=== PATIENT | female | born 1960 | race Caucasian/White ===

== ENCOUNTER 2017-11-14 14:51 | Inpatient (IN) | payer OTHER ==
--- NOTE | 2017-11-14 15:19 | PDOC ---
Rapid Medical Evaluation Time Seen by Provider: 11/14/17 15:15 Medical Evaluation: 11/14/17 15:15 I have performed a brief in-person evaluation of this patient. The patient presents with a chief complaint of: entire left leg swelling and calf swelling X 3 days, no recent travel or trauma. sent from Urgent Care Pertinent physical exam findings:++ swelling noted in L thigh and lower leg, 2x the size the right, + calf tenderness, + papule rash noted +2+ non pitting edema , disal pulse present, + tachycardia--denies CP/palpitation I have ordered the following: labs and duplex sono, ekg The patient will proceed to the ED for further evaluation. 11/14/17 15:20 Discharge Disposition - Diagnosis Swelling of calf - Referrals - Patient Instructions - Post Discharge Activity
[2017-11-14] MEDS ORDERED: SODIUM CHLORIDE 500 ML IV STA ×2 (17:15→17:49)
--- NOTE | 2017-11-14 17:24 | PDOC ---
History of Present Illness - General Chief Complaint: Pain Stated Complaint: SENT BY PCP:R/O DVT Time Seen by Provider: 11/14/17 15:15 History Source: Patient - History of Present Illness Occurred: reports: other Severity: Yes: severe Lower Extremity Pain Location: left: other (LLE) Past History - Past Medical History Allergies/Adverse Reactions: Allergies Allergy/AdvReac Type Severity Reaction Status Date / Time No Known Allergies Allergy Verified 11/14/17 15:16 COPD: No Other medical history: DENIES. - Suicide/Smoking/Psychosocial Hx Smoking History: Never smoked Review of Systems - Review of Systems Constitutional: No: Chills, Fever, Unexplained wgt Loss Respiratory: No: Shortness of Breath Cardiac (ROS): No: Chest Pain, Lightheadedness, Palpitations ABD/GI: Yes: Constipated, Nausea, Poor Appetite, Abdominal cramping. No: Blood Streaked Bowels, Diarrhea, Rectal Bleeding, Vomiting, Tarry Stools : No: Dysuria *Physical Exam - Vital Signs Last Vital Signs Temp Pulse Resp BP Pulse Ox 98.8 F 128 H 16 161/107 98 11/14/17 15:16 11/14/17 15:16 11/14/17 15:16 11/14/17 15:16 11/14/17 15:16 - Physical Exam General Appearance: Yes: Appropriately Dressed. No: Apparent Distress HEENT: positive: Normal Voice Neck: positive: Supple Respiratory/Chest: positive: Lungs Clear, Normal Breath Sounds. negative: Respiratory Distress Cardiovascular: positive: Tachycardia. negative: S1, S2 Gastrointestinal/Abdominal: positive: Soft Musculoskeletal: negative: CVA Tenderness Extremity: positive: Other (tight edema to LLE w/ multiple scattered erythematous papules of varying sizes throughout L leg, no sole involvement) Heart Score/ECG Review - ECG Intrepretation Comment:: 11/14/17 18:25 Sinus tach to 109, no acute ST-T wave changes, normal intervals and axis ED Treatment Course - LABORATORY CBC & Chemistry Diagram: 11/14/17 16:58 11/14/17 16:58 Medical Decision Making - Medical Decision Making 11/14/17 17:19 57-year-old female, denies any significant past medical history, post menopausal , here with left leg pain and swelling. Patient reports that she was in her usual state of health up until several weeks ago when she initially developed constipation. States she usually goes 3-4 times a week, but found herself going less frequently with no obvious inciting factor. Has been using over-the- counter meds with some improvement but states continues to have intermittent constipation. Does have some vague lower abdominal cramping and reports anorexia and nausea, no vomiting, f/c. Denies BRBPR, melena or recent unexplained weight loss. No colonoscopy in the past. Several days ago noticed pruritic rash to left lower extremity and since then has had diffuse swelling of her L foot extending into L thigh/groin. Denies any chest pain, shortness of breath or palpitations and no obvious risk factors for DVT/PE. Seen in urgent care today and told to come to ER. See exam R/o DVT vs lymphedema 2/2 ? malignancy (given new onset abd pain/constipation/ anorexia/nausea) Tachy to 128 at triage but denies cp/sob/palpitations w/ minimal ttp to lower abd and tight edema of LLE diffusely -ekg -cxr -LLE US, ?CTA -CT a/p -labs -admission anticipated 11/14/17 18:25 11/14/17 18:57 EKG w/ sinus tach to 109. Cr of 6.2 w/ K of 5.7. Will give kayexalate and calcium glu. CT with po contrast pending. Pt signed out to RUTH Guerrero at this time *DC/Admit/Observation/Transfer Diagnosis at time of Disposition: Swelling of calf - Referrals - Patient Instructions - Post Discharge Activity
[2017-11-14] MEDS ORDERED: ONDANSETRON 4 MG TABLET PO ONE (17:32)
[2017-11-14] MEDS ORDERED: ONDANSETRON 4 MG/2 ML VIAL ONE (17:38)
[2017-11-14] MEDS ORDERED: ONDANSETRON 4 MG/2 ML VIAL IVPUSH ONE (17:41)
[2017-11-14 17:47] LABS: HEMATOCRIT 37.3 % (32.4-45.2); HEMOGLOBIN 12.5 GM/dL (10.7-15.3); MCH 28.9 pg (25.7-33.7); MCHC 33.4 g/dl (32.0-36.0); MEAN CELL VOLUME 86.3 fl (80-96); MEAN PLT VOLUME 7.9 fl (7.5-11.1); PLATELET COUNT 386 K/MM3 (134-434); RBC 4.32 M/mm3 (3.60-5.2); RDW 12.7 % (11.6-15.6); WHITE BLOOD COUNT 10.2 K/mm3 (4.0-10.0)
[2017-11-14 17:56] LABS: INR 1.19 (0.82-1.09); PROTHROMBIN TIME (PATIENT) 13.5 SEC (9.7-13.0)
[2017-11-14 18:41] LABS: ALBUMIN 3.8 g/dl (3.4-5.0); ALK PHOS 196 U/L (45-117); ANION GAP 16 (8-16); BILIRUBIN,TOTAL 0.3 mg/dL (0.2-1.0); BLOOD UREA NITROGEN 81 mg/dL (7-18); CALCIUM 9.8 mg/dL (8.5-10.1); CHLORIDE 101 mmol/L (98-107); CO2 19 mmol/L (21-32); CREATININE 6.2 mg/dL (0.55-1.02); GLUCOSE,RANDOM 269 mg/dL (74-106); POTASSIUM 5.6 mmol/L (3.5-5.1); SGOT/AST 12 U/L (15-37); SGPT/ALT 19 U/L (12-78); SODIUM 136 mmol/L (136-145); TOT PROT 8.7 g/dl (6.4-8.2)
[2017-11-14] MEDS ORDERED: SODIUM POLYSTYRENE SULFONATE 15 GM/60 ML BOTTLE PO ONE (18:58)
[2017-11-14] MEDS ORDERED: CALCIUM GLUCONATE 10% - 1,000 MG/10 ML VIAL IVPUSH ONE (18:58)
--- NOTE | 2017-11-14 19:08 | PDOC ---
*Physical Exam - Vital Signs Last Vital Signs Temp Pulse Resp BP Pulse Ox 98.8 F 128 H 16 161/107 98 11/14/17 15:16 11/14/17 15:16 11/14/17 15:16 11/14/17 15:16 11/14/17 15:16 - Physical Exam Extremity: positive: Swelling (left lower swelling), Erythema (left medial thigh ) ED Treatment Course - LABORATORY CBC & Chemistry Diagram: 11/14/17 16:58 11/14/17 16:58 - ADDITIONAL ORDERS Additional order review: Laboratory Results 11/14/17 11/14/17 11/14/17 16:58 16:58 16:58 PT with INR 13.50 H INR 1.19 H Sodium 136 Potassium 5.6 H Chloride 101 Carbon Dioxide 19 L Anion Gap 16 BUN 81 H Creatinine 6.2 H Creat Clearance w eGFR 7.01 Random Glucose 269 H Calcium 9.8 Total Bilirubin 0.3 AST 12 L ALT 19 Alkaline Phosphatase 196 H B-Natriuretic Peptide 786.38 H Total Protein 8.7 H Albumin 3.8 11/14/17 16:58 RBC 4.32 MCV 86.3 MCHC 33.4 RDW 12.7 MPV 7.9 - Medications Given in the ED: ED Medications Discontinued Medications Generic Name Dose Route Start Last Admin Trade Name Freq PRN Reason Stop Dose Admin Sodium Chloride 500 mls @ 500 mls/hr 11/14/17 17:15 11/14/17 17:41 Normal Saline - IV 11/14/17 18:14 500 mls/hr ASDIR STA Administration Sodium Chloride 500 mls @ 500 mls/hr 11/14/17 17:49 11/14/17 17:58 Normal Saline - IV 11/14/17 18:48 500 mls/hr ASDIR STA Administration Ondansetron HCl 4 mg 11/14/17 17:32 11/14/17 18:02 Zofran - PO 11/14/17 17:33 Not Given ONCE ONE Ondansetron HCl 4 mg 11/14/17 17:41 11/14/17 17:58 Zofran Injection IVPUSH 11/14/17 17:42 4 mg ONCE ONE Administration Progress Note - Progress Note Progress Note: Received signout from MEETA Villela. Patient presents from urgent care with left lower extremity erythema and swelling. This concern was for DVT. EKG reveals a sinus tachycardia with rate of 109. Normal intervals present T waves are not peaked. Laboratory testing is remarkable for potassium of 5.6, BUN 8-81, creatinine 6.2. Patient is presently ultrasound. I'll evaluate patient once she has returned from ultrasound and will be admitted with renal consult. Medical Decision Making - Medical Decision Making 11/14/17 20:01 A/P: 57-year-old woman without significant past medical history with new onset left lower extremity rash and swelling Labs notable for renal failure with elevated K- 5.6. Renal paged for consult. Duplex Doppler as read by Dr. Flores: There is diffuse swelling of the left leg which somewhat limits the exam on a technical basis. A left common femoral vein as well as the upper and middle thirds of the femoral vein appear patent. The distal third of the femoral vein cannot be adequately compressed on this exam to the leg swelling as well as body habitus. Posterior tibial veins appear patent. There is no obvious popliteal cyst. Nonspecific enlarged left inguinal lymph node is seen with a 1.7 cm short axis diameter. 11/14/17 20:30 CT as read by Dr. Flores: Urinary retention is noted with a current bladder volume of approximately 1400 mL. There is resultant moderate bilateral hydronephrosis. No CT evidence of urolithiasis. Nonspecific mildly prominent left inguinal lymph node is seen. Subcutaneous edema is visualized on the partially imaged upper left thigh. Diffuse hepatic steatosis 11/14/17 21:[address] Levine who accepts patient for admission. Dr. Crowley of nephrology is aware and requests Hyatt placement. Attempts to insert Hyatt catheter 2 have been unsuccessful. Unable to pass Hyatt catheter be on the first 4 mL of urethra. I sent a page to Dr. Santo of urology for urgent consult and bladder decompression. 11/14/17 22:27 Page #3 for - [facility]. 11/14/17 22:33 Spoke with [facility] service who states Dr. Garcia is covering tonight. Message left 11/14/17 22:[address] Garcia who is aware of need for bladder catheterization. Dr. Garcia is aware of urgent need and will place Hyatt catheter. *DC/Admit/Observation/Transfer Diagnosis at time of Disposition: Acute renal failure (ARF), Acute urinary retention, Hyperkalemia - Discharge Dispostion Condition at time of disposition: Fair Decision to Admit order: Yes - Referrals - Patient Instructions - Post Discharge Activity
[2017-11-14] MEDS ORDERED: CALCIUM GLUCONATE 10% - 1,000 MG/10 ML VIAL ONE (20:50)
[2017-11-14] MEDS ORDERED: SODIUM POLYSTYRENE SULFONATE 15 GM/60 ML BOTTLE ONE (20:50)
--- NOTE | 2017-11-14 22:54 | HP ---
Admitting History and Physical - Primary Care Physician PCP: Jacinto Levine - Admission History of Present Illness: 57-year-old female, denies any significant past medical history, post menopausal , here with left leg pain and swelling. Patient reports that she was in her usual state of health up until several weeks ago when she initially developed constipation. States she usually goes 3-4 times a week, but found herself going less frequently with no obvious inciting factor. Has been using over-the- counter meds with some improvement but states continues to have intermittent constipation. Does have some vague lower abdominal cramping and reports anorexia and nausea, no vomiting, f/c. Denies BRBPR, melena or recent unexplained weight loss. No colonoscopy in the past. Several days ago noticed pruritic rash to left lower extremity and since then has had diffuse swelling of her L foot extending into L thigh/groin. Denies any chest pain, shortness of breath or palpitations and no obvious risk factors for DVT/PE. Seen in urgent care today and told to come to ER. - Smoking History Smoking history: Never smoked Home Medications - Allergies Allergies/Adverse Reactions: Allergies Allergy/AdvReac Type Severity Reaction Status Date / Time No Known Allergies Allergy Verified 11/14/17 15:16 - Home Medications Home Medications: Ambulatory Orders NK [No Known Home Medication] 11/14/17 Physical Examination Vital Signs: Vital Signs Temperature 98 F 11/14/17 21:14 Pulse Rate 125 H 11/14/17 21:14 Respiratory Rate 17 11/14/17 21:14 Blood Pressure 210/127 11/14/17 21:14 O2 Sat by Pulse Oximetry (%) 98 11/14/17 21:14 Constitutional: Yes: No Distress HENT: Yes: Atraumatic Neck: Yes: Supple Cardiovascular: Yes: Regular Rate and Rhythm Respiratory: Yes: CTA Bilaterally Gastrointestinal: Yes: Normal Bowel Sounds Extremities: Yes: WNL Edema: LLE: 2+ Peripheral Pulses WNL: Yes Neurological: Yes: Alert, Oriented Labs: CBC, BMP 11/14/17 16:58 11/14/17 16:58 Imaging - Results Ultrasound: Report Reviewed Problem List - Problems (1) Acute renal failure (ARF) Assessment/Plan: urine out put not good cant put folry in ..awaiting urology monitor I/O renal consult Code(s): N17.9 - ACUTE KIDNEY FAILURE, UNSPECIFIED (2) Acute urinary retention Assessment/Plan: need jackson in place Code(s): R33.8 - OTHER RETENTION OF URINE (3) HTN (hypertension) Assessment/Plan: on meds monitor Code(s): I10 - ESSENTIAL (PRIMARY) HYPERTENSION Qualifiers: Hypertension type: unspecified Qualified Code(s): I10 - Essential (primary ) hypertension (4) Hyperkalemia Assessment/Plan: will give kayexalate monitor levels Code(s): E87.5 - HYPERKALEMIA (5) Pedal edema Code(s): R60.0 - LOCALIZED EDEMA Assessment/Plan Laboratory Tests 11/14/17 11/14/17 11/14/17 16:58 16:58 16:58 WBC 10.2 H RBC 4.32 Hgb 12.5 Hct 37.3 MCV 86.3 MCH 28.9 MCHC 33.4 RDW 12.7 Plt Count 386 MPV 7.9 PT with INR 13.50 H INR 1.19 H Sodium 136 Potassium 5.6 H Chloride 101 Carbon Dioxide 19 L Anion Gap 16 BUN 81 H Creatinine 6.2 H Creat Clearance w eGFR 7.01 Random Glucose 269 H Calcium 9.8 Total Bilirubin 0.3 AST 12 L ALT 19 Alkaline Phosphatase 196 H B-Natriuretic Peptide Total Protein 8.7 H Albumin 3.8 11/14/17 16:58 WBC RBC Hgb Hct MCV MCH MCHC RDW Plt Count MPV PT with INR INR Sodium Potassium Chloride Carbon Dioxide Anion Gap BUN Creatinine Creat Clearance w eGFR Random Glucose Calcium Total Bilirubin AST ALT Alkaline Phosphatase B-Natriuretic Peptide 786.38 H Total Protein Albumin Active Medications Generic Name Dose Route Start Last Admin Trade Name Freq PRN Reason Stop Dose Admin Albuterol Sulfate 1 amp 11/15/17 11:55 11/15/17 13:50 Ventolin 0.083% Nebulizer Soln - NEB 1 amp Q1H PRN Administration SHORT OF BREATH/WHEEZING Heparin Sodium (Porcine) 5,000 unit 11/15/17 10:00 11/15/17 09:47 Heparin - SQ 5,000 unit BID EZIO Administration Sodium Chloride 1,000 mls @ 75 mls/hr 11/15/17 15:15 Normal Saline - IV ASDIR EZIO Metoprolol Tartrate 25 mg 11/15/17 10:30 Lopressor - PO BID EZIO
[2017-11-14] MEDS ORDERED: ACETAMINOPHEN 500 MG TABLET (FP) PO ONE (23:08)
[2017-11-15] MEDS ORDERED: ACETAMINOPHEN 325 MG TABLET (FP) ONE ×2 (00:45→16:58)
[2017-11-15 07:56] LABS: BASO % 0.8 % (0-2.0); EOS % 1.8 % (0-4.5); HEMOGLOBIN 11.6 GM/dL (10.7-15.3); LYMPH % 17.8 % (8-40); MCH 29.4 pg (25.7-33.7); MCHC 34.2 g/dl (32.0-36.0); MEAN CELL VOLUME 86.1 fl (80-96); MEAN PLT VOLUME 7.8 fl (7.5-11.1); MONO % 9.5 % (3.8-10.2); NEUT % 70.1 % (42.8-82.8); PLATELET COUNT 322 K/MM3 (134-434); RBC 3.95 M/mm3 (3.60-5.2); RDW 12.4 % (11.6-15.6); WHITE BLOOD COUNT 9.4 K/mm3 (4.0-10.0)
[2017-11-15 08:37] LABS: ALBUMIN 3.4 g/dl (3.4-5.0); ALK PHOS 181 U/L (45-117); BILIRUBIN,TOTAL 0.3 mg/dL (0.2-1.0); BLOOD UREA NITROGEN 81 mg/dL (7-18); CALCIUM 9.3 mg/dL (8.5-10.1); CO2 19 mmol/L (21-32); CREATININE 6.5 mg/dL (0.55-1.02); GLUCOSE,RANDOM 258 mg/dL (74-106); SGOT/AST 10 U/L (15-37); SGPT/ALT 17 U/L (12-78); TOT PROT 7.7 g/dl (6.4-8.2)
[2017-11-15 08:41] LABS: ANION GAP 12 (8-16); CHLORIDE 106 mmol/L (98-107); SODIUM 137 mmol/L (136-145)
[2017-11-15 09:14] LABS: POTASSIUM 6.2 mmol/L (3.5-5.1)
[2017-11-15] MEDS: HEPARIN NA (PORCINE) 5,000 UNITS/ML 1ML VIAL SQ SCH ×2 (09:47→23:08)
--- NOTE | 2017-11-15 10:08 | CON.CARD ---
Consult Consult Specialty:: Cardiology Referred by:: Dr. Levine Reason for Consultation:: Cardiac evaluation - History of Present Illness Chief Complaint: Difficulty with urination and abdominal fulness, left pedal edema History of Present Illness: Patient is a 57 year old female with no significant PMH who presents with left leg swelling for about 4-5 days and feeling ill with abdominal fullness and constipation. She found herself going less to the bathroom and had some lower abdominal cramping. She denies fever but complained of chills. Denies chest pain , shortness of breath or palpitations. She denies paroxysmal nocturnal dyspnea or orthopnea. She denies vomiting or diarrhea. She denies headache or lightheadedness. She has edema extending up to her left thigh. She also has BETH with elevation of creatinine and hyperkalemia. Cardiology consultation was called due to management of hypertension. She has not had history of hypertension. - History Source History Provided By: Patient, Medical Record Limitations to Obtaining History: No Limitations - Alcohol/Substance Use Hx Alcohol Use: No History of Substance Use: reports: None - Smoking History Smoking history: Never smoked Home Medications - Allergies Allergies/Adverse Reactions: Allergies Allergy/AdvReac Type Severity Reaction Status Date / Time No Known Allergies Allergy Verified 11/14/17 15:16 - Home Medications Home Medications: Ambulatory Orders NK [No Known Home Medication] 11/14/17 Family Disease History - Family Disease History Family Disease History: CA: Mother (breast CA) Review of Systems - Review of Systems Constitutional: reports: Chills. denies: Fever Cardiovascular: denies: Chest Pain, Palpitations, Shortness of Breath Respiratory: denies: Cough, Hemoptysis, Orthopnea, PND, SOB, SOB on Exertion Gastrointestinal: reports: Bloating, Constipation. denies: Abdominal Pain, Diarrhea, Melena, Nausea, Rectal Bleeding, Vomiting Genitourinary: denies: Hematuria Musculoskeletal: denies: Joint Pain Neurological: denies: Dizziness, Headache, Seizure, Syncope, Weakness Vital Signs: Vital Signs Temperature 99.4 F 11/15/17 06:22 Pulse Rate 106 H 11/15/17 06:22 Respiratory Rate 18 11/15/17 06:22 Blood Pressure 166/87 11/15/17 06:22 O2 Sat by Pulse Oximetry (%) 98 11/15/17 06:22 Eyes: Yes: PERRL HENT: Yes: Atraumatic Neck: Yes: Supple Respiratory: Yes: CTA Bilaterally Gastrointestinal: Yes: Normal Bowel Sounds, Soft. No: Tenderness Cardiovascular: Yes: Regular Rate and Rhythm JVD: No Carotid Bruit: No PMI: Non-Displaced Heart Sounds: Yes: S1, S2. No: Gallop Murmur: No: Systolic Murmur, Diastolic Murmur Edema: Yes Edema: LLE: 2+ - Other Data Labs, Other Data: CBC, BMP 11/15/17 07:15 11/15/17 07:15 INR, PTT INR 1.19 (0.82-1.09) H 11/14/17 16:58 Troponin, BNP 11/14/17 16:58 B-Natriuretic Peptide 786.38 H Sinus tachycardia, no ST-T abnormality Problem List - Problems (1) Pedal edema Code(s): R60.0 - LOCALIZED EDEMA (2) Acute renal failure (ARF) Code(s): N17.9 - ACUTE KIDNEY FAILURE, UNSPECIFIED (3) Acute urinary retention Code(s): R33.8 - OTHER RETENTION OF URINE (4) Hyperkalemia Code(s): E87.5 - HYPERKALEMIA (5) HTN (hypertension) Code(s): I10 - ESSENTIAL (PRIMARY) HYPERTENSION Qualifiers: Hypertension type: unspecified Qualified Code(s): I10 - Essential (primary ) hypertension Assessment/Plan 1. Sinus tachycardia and hypertension 2. BETH possible obstructive with urinary retention and hydronephrosis 3. Hyperkalemia 4. Left pedal edema, etiology unclear as ultrasound was inconclusive for ruling out DVT. ?lymphedema PLAN: 1. input needed and for jackson catheter insertion and further evaluation to follow regarding this urinary retention and hydronephrosis 2. BP needs to be followed. May consider beta alberto therapy for now. 3. Monitor electrolytes including K level and renal function 4. Consider further evaluation for pedal edema. Consider venogram. 5. Renal input to follow 6. Transthoracic echocardiography to assess LV/RV and valvular function Further plans are to follow Anuj Moreno MD
[2017-11-15] MEDS ORDERED: CALCIUM GLUCONATE 10% - 1,000 MG/10 ML VIAL IVPUSH ONE ×2 (11:54→22:15)
[2017-11-15] MEDS ORDERED: LACTULOSE 20 GM/30 ML UDC (FOR ORAL USE ONLY) PO ONE (11:54)
[2017-11-15] MEDS ORDERED: DEXTROSE 50%-WATER - 25 GM/50 ML VIAL IVPUSH ONE (11:55)
[2017-11-15] MEDS ORDERED: INSULIN REGULAR HUMAN 100 UNITS/ML *VIAL IVPUSH ONE (11:55)
--- NOTE | 2017-11-15 11:56 | CONSULT ---
Consult Consult Specialty:: Nephrology Reason for Consultation:: BETH and hyperkalemia - History of Present Illness Chief Complaint: left leg edema History of Present Illness: Pt is a 57 year old female who presents to the ER with left leg edema. She denies any medical history and does not have a pmd. She went to urgent care who sent her to the ER. She says that the edema began a few days ago. She complains of constipation that has been chronic. She was found to be in acute renal failure in the ER and I was called to evaluate her. She was also found to be in urinary retention. ER could not place jackson as there was resistance. I called urology again today and they came and placed a jackson. She denies shortness of breath. She is also developing a rash on her left leg. She denies tick bite. - History Source History Provided By: Patient, Medical Record - Alcohol/Substance Use Hx Alcohol Use: No History of Substance Use: reports: None - Smoking History Smoking history: Never smoked Home Medications - Allergies Allergies/Adverse Reactions: Allergies Allergy/AdvReac Type Severity Reaction Status Date / Time No Known Allergies Allergy Verified 11/14/17 15:16 - Home Medications Home Medications: Ambulatory Orders NK [No Known Home Medication] 11/14/17 Family Disease History - Family Disease History Family Disease History: CA: Mother (breast CA) Review of Systems - Review of Systems Constitutional: reports: No Symptoms Eyes: reports: No Symptoms HENT: reports: No Symptoms Neck: reports: No Symptoms Cardiovascular: reports: No Symptoms Respiratory: reports: No Symptoms Gastrointestinal: reports: Constipation Genitourinary: reports: Dysuria Integumentary: reports: Lesions, Rash Neurological: reports: No Symptoms Endocrine: reports: No Symptoms Hematology/Lymphatic: reports: No Symptoms Psychiatric: reports: No Symptoms Physical Exam Vital Signs: Vital Signs Temperature 99.4 F 11/15/17 06:22 Pulse Rate 106 H 11/15/17 06:22 Respiratory Rate 18 11/15/17 06:22 Blood Pressure 166/87 11/15/17 06:22 O2 Sat by Pulse Oximetry (%) 98 11/15/17 06:22 Constitutional: Yes: Calm Eyes: Yes: Conjunctiva Clear HENT: Yes: Atraumatic Neck: Yes: Supple Cardiovascular: Yes: S1, S2 Respiratory: Yes: CTA Bilaterally Gastrointestinal: Yes: Soft, Abdomen, Obese Breast(s): Yes: Other (distended bladder) Musculoskeletal: Yes: WNL Edema: Yes Edema: LLE: 1+ Neurological: Yes: Oriented Psychiatric: Yes: Oriented Labs: CBC, BMP 11/15/17 07:15 11/15/17 07:15 Laboratory Tests 11/14/17 11/14/17 11/14/17 16:58 16:58 16:58 WBC 10.2 H Hgb 12.5 PT with INR 13.50 H INR 1.19 H Sodium 136 Potassium 5.6 H Chloride Carbon Dioxide Anion Gap BUN 81 H Creatinine 6.2 H Random Glucose 269 H 11/15/17 11/15/17 07:15 07:15 WBC 9.4 Hgb 11.6 PT with INR INR Sodium 137 Potassium 6.2 H* Chloride 106 Carbon Dioxide 19 L Anion Gap 12 BUN 81 H Creatinine 6.5 H Random Glucose 258 H Imaging - Results Cat Scan: Report Reviewed Problem List - Problems (1) Acute renal failure (ARF) Code(s): N17.9 - ACUTE KIDNEY FAILURE, UNSPECIFIED (2) Acute urinary retention Code(s): R33.8 - OTHER RETENTION OF URINE (3) HTN (hypertension) Code(s): I10 - ESSENTIAL (PRIMARY) HYPERTENSION Qualifiers: Hypertension type: unspecified Qualified Code(s): I10 - Essential (primary ) hypertension (4) Hyperkalemia Code(s): E87.5 - HYPERKALEMIA Assessment/Plan Current Medications Generic Name Dose Route Start Last Admin Trade Name Freq PRN Reason Stop Dose Admin Albuterol Sulfate 1 amp 11/15/17 11:55 11/15/17 13:50 Ventolin 0.083% Nebulizer Soln - NEB 1 amp Q1H PRN Administration SHORT OF BREATH/WHEEZING Heparin Sodium (Porcine) 5,000 unit 11/15/17 10:00 11/15/17 09:47 Heparin - SQ 5,000 unit BID EZIO Administration Metoprolol Tartrate 25 mg 11/15/17 10:30 Lopressor - PO BID EZIO Impression 1. BETH 2. hyperkalemia 3. urinary retention 4. constipation 5. left leg edema 6. rash Plan - urology placing jackson now - monitor urine output - start fluids and monitor for post obstructive diuresis - potassium treated medically - pt should be on tele - repeat bmp - discussed with medical team - unclear why she has unilater edema - will need bowel regimen for constipation - age appropriate screening - will follow - will send renal workup including anca and olga - consider derm eval Dr Crowley
--- NOTE | 2017-11-15 12:03 | EKG ---
Test Reason : Blood Pressure : / mmHG Vent. Rate : 109 BPM Atrial Rate : 109 BPM P-R Int : 128 ms QRS Dur : 072 ms QT Int : 308 ms P-R-T Axes : 053 034 034 degrees QTc Int : 414 ms SINUS TACHYCARDIA CANNOT RULE OUT ANTERIOR INFARCT , AGE UNDETERMINED ABNORMAL ECG Confirmed by MD BOB, MARY ([id number]) on 11/15/2017 12:03:15 PM Referred By: Confirmed By:MARY ROJAS MD
[2017-11-15] MEDS ORDERED: DEXTROSE 50%-WATER 25 GM/50 ML DISP.SYRIN ONE (12:50)
[2017-11-15] MEDS: ALBUTEROL SO4 0.083% IH SOL 2.5 MG/3 ML VIAL.NEB. NEB PRN ×5 (13:33→23:18)
[2017-11-15] MEDS ORDERED: LIDOCAINE HCL 2% JELLY 10 ML CARTRIDGE ONE (13:54)
[2017-11-15] MEDS ORDERED: SODIUM CHLORIDE 1,000 ML IV SCH ×2 (15:15→22:15)
--- NOTE | 2017-11-15 15:17 | PN ---
Progress Note, Physician - Current Medication List Current Medications: Active Medications Albuterol Sulfate (Ventolin 0.083% Nebulizer Soln -) 1 amp NEB Q1H PRN PRN Reason: SHORT OF BREATH/WHEEZING Last Admin: 11/15/17 13:50 Dose: 1 amp Heparin Sodium (Porcine) (Heparin -) 5,000 unit SQ BID EZIO Last Admin: 11/15/17 09:47 Dose: 5,000 unit Sodium Chloride (Normal Saline -) 1,000 mls @ 75 mls/hr IV ASDIR EZIO Metoprolol Tartrate (Lopressor -) 25 mg PO BID EZIO - Objective Vital Signs: Vital Signs Temperature 99.4 F 11/15/17 06:22 Pulse Rate 106 H 11/15/17 06:22 Respiratory Rate 18 11/15/17 06:22 Blood Pressure 166/87 11/15/17 06:22 O2 Sat by Pulse Oximetry (%) 98 11/15/17 06:22 Constitutional: Yes: No Distress HENT: Yes: Atraumatic Neck: Yes: Supple Cardiovascular: Yes: Regular Rate and Rhythm Respiratory: Yes: CTA Bilaterally Gastrointestinal: Yes: Normal Bowel Sounds Extremities: Yes: Other (llex swollen, warm, some small red eruptions) Edema: Yes Edema: RLE: 2+ Neurological: Yes: Alert, Oriented Labs: CBC, BMP 11/15/17 07:15 11/15/17 07:15 INR, PTT INR 1.19 (0.82-1.09) H 11/14/17 16:58 Problem List - Problems (1) Acute renal failure (ARF) Assessment/Plan: urine out put not good cant put jackson in ..awaiting urology monitor I/O renal consult Code(s): N17.9 - ACUTE KIDNEY FAILURE, UNSPECIFIED Qualifiers: Acute renal failure type: unspecified Qualified Code(s): N17.9 - Acute kidney failure, unspecified (2) Acute urinary retention Assessment/Plan: need jackson in place Code(s): R33.8 - OTHER RETENTION OF URINE (3) HTN (hypertension) Assessment/Plan: on meds monitor Code(s): I10 - ESSENTIAL (PRIMARY) HYPERTENSION Qualifiers: Hypertension type: essential hypertension Qualified Code(s): I10 - Essential (primary) hypertension (4) Hyperkalemia Assessment/Plan: will give kayexalate monitor levels Code(s): E87.5 - HYPERKALEMIA (5) Pedal edema Code(s): R60.0 - LOCALIZED EDEMA (6) Rash and nonspecific skin eruption Assessment/Plan: derm consult Code(s): R21 - RASH AND OTHER NONSPECIFIC SKIN ERUPTION
--- NOTE | 2017-11-15 16:21 | ECHO ---
Name: CHAITANYA YOO Exam:Adult Echocardiogram Study Date: 11/15/2017 10:11 AM Reason For Study: CHF Height: 60 in Weight: 200 lb BSA: 1.9 m2 MMode/2D Measurements & Calculations IVSd: 0.77 cm Ao root diam: 2.7 cm EDV(Teich): 107.4 ml LVIDd: 4.8 cm LA dimension: 3.4 cm LVPWd: 0.87 cm ACS: 1.5 cm Ao root area: 5.7 cm2 Doppler Measurements & Calculations MV A max bhavana: 128.3 cm/sec Ao V2 max: 154.2 cm/sec MR max bhavana: 545.1 cm/sec Ao max P.5 mmHg MR max P.9 mmHg Ao V2 mean: 99.1 cm/sec Ao mean P.6 mmHg Ao V2 VTI: 23.3 cm TR max bhavana: 221.0 cm/sec PA V2 max: 156.1 cm/sec TR max P.5 mmHg PA max P.7 mmHg PA V2 mean: 94.2 cm/sec PA mean P.2 mmHg PA V2 VTI: 25.2 cm Procedure A complete two-dimensional transthoracic echocardiogram was performed (2D, M-mode, Doppler and color flow Doppler). Left Ventricle The left ventricular size, thickness and function are normal. Ejection Fraction = 65%. Right Ventricle The right ventricle is normal in size and function. Atria The left atrium is mildly dilated. Right atrial size is normal. Mitral Valve The mitral valve is grossly normal. There is trace mitral regurgitation. Tricuspid Valve The tricuspid valve is not well visualized, but is grossly normal. There is trace tricuspid regurgita tion. There was insufficient TR detected to calculate RV systolic pressure. Aortic Valve The aortic valve is trileaflet. There is mild aortic valve thickening. There is mild aortic sclerosis .;. No hemodynamically significant valvular aortic stenosis. Pulmonic Valve The pulmonic valve is not well visualized. Great Vessels The aortic root is normal size. Pericardium/Pleura There is no pericardial effusion. Interpretation Summary The left ventricular size, thickness and function are normal The left atrium is mildly dilated. There is trace mitral regurgitation. There is trace tricuspid regurgitation. There was insufficient TR detected to calculate RV systolic pressure. No hemodynamically significant valvular aortic stenosis. There is no pericardial effusion. MD Fransisco Orellana 11/15/2017 04:21 PM
[2017-11-15] MEDS ORDERED: amLODIPine BESYLATE 5 MG TABLET (FP) ONE (16:59)
[2017-11-15] MEDS ORDERED: ACETAMINOPHEN 325 MG TABLET (FP) PO ONE (17:00)
[2017-11-15] MEDS ORDERED: METOPROLOL TARTRATE 25 MG TABLET (FP) ONE (17:13)
[2017-11-15] MEDS: METOPROLOL TARTRATE 25 MG TABLET (FP) PO SCH ×2 (17:14→23:08)
[2017-11-15 21:25] LABS: ANION GAP 12 (8-16); BLOOD UREA NITROGEN 77 mg/dL (7-18); CALCIUM 8.7 mg/dL (8.5-10.1); CHLORIDE 106 mmol/L (98-107); CO2 19 mmol/L (21-32); CREATININE 5.8 mg/dL (0.55-1.02); SODIUM 137 mmol/L (136-145)
[2017-11-15 21:29] LABS: GLUCOSE,RANDOM 410 mg/dL (74-106)
[2017-11-15] MEDS ORDERED: INSULIN (NOVOLOG) ASPART 100 UNITS/ML 10ML VIAL SQ ONE (22:00)
[2017-11-15] MEDS ORDERED: INSULIN REGULAR HUMAN 100 UNITS/ML *VIAL ONE (22:07)
[2017-11-15] MEDS ORDERED: SODIUM POLYSTYRENE SULFONATE 15 GM/60 ML BOTTLE PO ONE (22:45)
[2017-11-15] MEDS: ACETAMINOPHEN 325 MG TABLET (FP) PO PRN (23:10)
[2017-11-16] MEDS: SODIUM CHLORIDE 0.45% 1,000 ML IV SCH (00:30)
[2017-11-16 01:05] VITALS: BMI 37.5
[2017-11-16] MEDS: ACETAMINOPHEN 325 MG TABLET (FP) PO PRN ×2 (04:49→10:52)
[2017-11-16 07:50] LABS: ALBUMIN 3.2 g/dl (3.4-5.0); ANION GAP 10 (8-16); BLOOD UREA NITROGEN 76 mg/dL (7-18); CALCIUM 9.2 mg/dL (8.5-10.1); CHLORIDE 106 mmol/L (98-107); CO2 20 mmol/L (21-32); GLUCOSE,RANDOM 169 mg/dL (74-106); POTASSIUM 5.9 mmol/L (3.5-5.1); SGOT/AST 12 U/L (15-37); SGPT/ALT 19 U/L (12-78); SODIUM 136 mmol/L (136-145)
[2017-11-16 07:52] LABS: ALK PHOS 202 U/L (45-117); BILIRUBIN,TOTAL 0.3 mg/dL (0.2-1.0); CREATININE 5.7 mg/dL (0.55-1.02); TOT PROT 7.4 g/dl (6.4-8.2)
[2017-11-16] MEDS: HEPARIN NA (PORCINE) 5,000 UNITS/ML 1ML VIAL SQ SCH ×2 (09:13→21:53)
[2017-11-16] MEDS: METOPROLOL TARTRATE 25 MG TABLET (FP) PO SCH ×2 (09:13→21:51)
--- NOTE | 2017-11-16 12:21 | PN ---
Progress Note, Physician History of Present Illness: Tolerating lunch, receiving IVF. - Current Medication List Current Medications: Active Medications Acetaminophen (Tylenol -) 650 mg PO Q6H PRN PRN Reason: FEVER Last Admin: 11/16/17 10:52 Dose: 650 mg Albuterol Sulfate (Ventolin 0.083% Nebulizer Soln -) 1 amp NEB Q1H PRN PRN Reason: SHORT OF BREATH/WHEEZING Last Admin: 11/15/17 13:50 Dose: 1 amp Heparin Sodium (Porcine) (Heparin -) 5,000 unit SQ BID [facility] Last Admin: 11/16/17 09:13 Dose: Not Given Sodium Chloride (1/2 Normal Saline) 1,000 mls @ 125 mls/hr IV ASDIR [facility] Last Admin: 11/16/17 00:30 Dose: 125 mls/hr Metoprolol Tartrate (Lopressor -) 25 mg PO BID [facility] Last Admin: 11/16/17 09:13 Dose: 25 mg - Objective Vital Signs: Vital Signs Temperature 98.2 F 11/16/17 06:00 Pulse Rate 98 H 11/16/17 06:00 Respiratory Rate 18 11/16/17 06:00 Blood Pressure 143/75 11/16/17 06:00 O2 Sat by Pulse Oximetry (%) 98 11/16/17 03:54 Constitutional: Yes: No Distress, Calm Neck: Yes: Supple Cardiovascular: Yes: Regular Rate and Rhythm Respiratory: Yes: Regular, CTA Bilaterally Gastrointestinal: Yes: Normal Bowel Sounds, Soft Edema: Yes Edema: LLE: 2+ Labs: CBC, BMP 11/15/17 07:15 11/16/17 06:15 INR, PTT INR 1.19 (0.82-1.09) H 11/14/17 16:58 - ....Imaging Ultrasound: Report Reviewed (Mod bilateral hydro and bladder distension improved ) Problem List - Problems (1) Acute urinary retention Code(s): R33.8 - OTHER RETENTION OF URINE (2) HTN (hypertension) Code(s): I10 - ESSENTIAL (PRIMARY) HYPERTENSION Qualifiers: Hypertension type: essential hypertension Qualified Code(s): I10 - Essential (primary) hypertension (3) Hyperkalemia Code(s): E87.5 - HYPERKALEMIA (4) Pedal edema Code(s): R60.0 - LOCALIZED EDEMA (5) Acute bilateral obstructive uropathy Code(s): N13.9 - OBSTRUCTIVE AND REFLUX UROPATHY, UNSPECIFIED Assessment/Plan Transthoracic echocardiography to assess LV/RV and valvular function 1. Sinus tachycardia and hypertension improved 2. BETH and hyperkalemia referable to obstructive uropathy with urinary retention and moderate bilateral hydronephrosis 3. Left pedal edema, etiology unclear as ultrasound was inconclusive for ruling out DVT. ?lymphedema PLAN: 1. Hyatt placed with traumatic hematuria, urology management of urinary retention and hydronephrosis 2. Continue Lopressor 25 bid 3. Monitor electrolytes during post-obstructive diuresis including K level and renal function with IVF 4. Left CT venogram once renal fxn recovers 5. Renal input appreciated 6. DVT prophylaxis
[2017-11-16 12:55] LABS: ANION GAP 12 (8-16); BLOOD UREA NITROGEN 76 mg/dL (7-18); CALCIUM 8.6 mg/dL (8.5-10.1); CHLORIDE 104 mmol/L (98-107); CO2 19 mmol/L (21-32); CREATININE 5.7 mg/dL (0.55-1.02); POTASSIUM 5.9 mmol/L (3.5-5.1); SODIUM 135 mmol/L (136-145)
[2017-11-16 13:09] LABS: GLUCOSE,RANDOM 319 mg/dL (74-106)
--- NOTE | 2017-11-16 13:30 | PN ---
Progress Note, Physician History of Present Illness: Pt seen and examined at bedside. She is awake and alert. She denies shortness of breath. - Current Medication List Current Medications: Active Medications Acetaminophen (Tylenol -) 650 mg PO Q6H PRN PRN Reason: FEVER Last Admin: 11/16/17 10:52 Dose: 650 mg Albuterol Sulfate (Ventolin 0.083% Nebulizer Soln -) 1 amp NEB Q1H PRN PRN Reason: SHORT OF BREATH/WHEEZING Last Admin: 11/15/17 13:50 Dose: 1 amp Heparin Sodium (Porcine) (Heparin -) 5,000 unit SQ BID [facility] Last Admin: 11/16/17 09:13 Dose: Not Given Sodium Chloride (1/2 Normal Saline) 1,000 mls @ 125 mls/hr IV ASDIR [facility] Last Admin: 11/16/17 00:30 Dose: 125 mls/hr Metoprolol Tartrate (Lopressor -) 25 mg PO BID [facility] Last Admin: 11/16/17 09:13 Dose: 25 mg - Objective Vital Signs: Vital Signs Temperature 98.2 F 11/16/17 06:00 Pulse Rate 98 H 11/16/17 06:00 Respiratory Rate 18 11/16/17 06:00 Blood Pressure 143/75 11/16/17 06:00 O2 Sat by Pulse Oximetry (%) 98 11/16/17 03:54 Constitutional: Yes: Calm Eyes: Yes: Conjunctiva Clear HENT: Yes: Atraumatic Cardiovascular: Yes: S1, S2 Respiratory: Yes: CTA Bilaterally Gastrointestinal: Yes: Soft, Abdomen, Obese Genitourinary: Yes: Jackson Present, Hematuria Edema: Yes Edema: LLE: 1+, RLE: Trace Neurological: Yes: Oriented Psychiatric: Yes: Oriented Labs: CBC, BMP 11/15/17 07:15 11/16/17 12:00 INR, PTT INR 1.19 (0.82-1.09) H 11/14/17 16:58 Problem List - Problems (1) Acute renal failure (ARF) Code(s): N17.9 - ACUTE KIDNEY FAILURE, UNSPECIFIED Qualifiers: Acute renal failure type: unspecified Qualified Code(s): N17.9 - Acute kidney failure, unspecified (2) Acute urinary retention Code(s): R33.8 - OTHER RETENTION OF URINE (3) HTN (hypertension) Code(s): I10 - ESSENTIAL (PRIMARY) HYPERTENSION Qualifiers: Hypertension type: essential hypertension Qualified Code(s): I10 - Essential (primary) hypertension (4) Hyperkalemia Code(s): E87.5 - HYPERKALEMIA Assessment/Plan Current Medications Generic Name Dose Route Start Last Admin Trade Name Freq PRN Reason Stop Dose Admin Acetaminophen 650 mg 11/15/17 17:06 11/16/17 10:52 Tylenol - PO 650 mg Q6H PRN Administration FEVER Albuterol Sulfate 1 amp 11/15/17 11:55 11/15/17 13:50 Ventolin 0.083% Nebulizer Soln - NEB 1 amp Q1H PRN Administration SHORT OF BREATH/WHEEZING Heparin Sodium (Porcine) 5,000 unit 11/15/17 10:00 11/16/17 09:13 Heparin - SQ Not Given BID [facility] Sodium Chloride 1,000 mls @ 125 mls/hr 11/15/17 22:00 11/16/17 00:30 1/2 Normal Saline IV 125 mls/hr ASD[facility] Administration Metoprolol Tartrate 25 mg 11/15/17 10:30 11/16/17 09:13 Lopressor - PO 25 mg BID [facility] Administration Impression 1. BETH 2. hyperkalemia 3. urinary retention 4. constipation 5. left leg edema 6. rash Plan - keep jackson in place - monitor lytes - kayexylate for hyperkalemia which is slowly improving - cont fluids - give lasix if she developed overload - erologic workup in progress - age appropriate screening - will follow - derm kelly pending Dr Crowley
[2017-11-16] MEDS ORDERED: INSULIN REGULAR HUMAN 100 UNITS/ML *VIAL IVPUSH ONE (14:30)
[2017-11-16] MEDS ORDERED: SODIUM POLYSTYRENE SULFONATE 15 GM/60 ML BOTTLE PO ONE (14:30)
--- NOTE | 2017-11-16 15:52 | PN ---
Progress Note, Physician History of Present Illness: feeling good - Current Medication List Current Medications: Active Medications Acetaminophen (Tylenol -) 650 mg PO Q6H PRN PRN Reason: FEVER Last Admin: 11/16/17 10:52 Dose: 650 mg Albuterol Sulfate (Ventolin 0.083% Nebulizer Soln -) 1 amp NEB Q1H PRN PRN Reason: SHORT OF BREATH/WHEEZING Last Admin: 11/15/17 13:50 Dose: 1 amp Heparin Sodium (Porcine) (Heparin -) 5,000 unit SQ BID [facility] Last Admin: 11/16/17 09:13 Dose: Not Given Sodium Chloride (1/2 Normal Saline) 1,000 mls @ 125 mls/hr IV ASDIR [facility] Last Admin: 11/16/17 00:30 Dose: 125 mls/hr Metoprolol Tartrate (Lopressor -) 25 mg PO BID [facility] Last Admin: 11/16/17 09:13 Dose: 25 mg - Objective Vital Signs: Vital Signs Temperature 98.0 F 11/16/17 14:00 Pulse Rate 101 H 11/16/17 14:00 Respiratory Rate 18 11/16/17 06:00 Blood Pressure 124/87 11/16/17 14:00 O2 Sat by Pulse Oximetry (%) 98 11/16/17 03:54 Constitutional: Yes: No Distress HENT: Yes: Atraumatic Neck: Yes: Supple Cardiovascular: Yes: Regular Rate and Rhythm Respiratory: Yes: CTA Bilaterally Gastrointestinal: Yes: Normal Bowel Sounds Extremities: Yes: Other (llex edema, erythema) Edema: Yes Edema: LLE: 2+ Neurological: Yes: Alert, Oriented Labs: CBC, BMP 11/15/17 07:15 11/16/17 12:00 INR, PTT INR 1.19 (0.82-1.09) H 11/14/17 16:58 Problem List - Problems (1) Acute renal failure (ARF) Assessment/Plan: bloody output via jackson awaiting urology Code(s): N17.9 - ACUTE KIDNEY FAILURE, UNSPECIFIED Qualifiers: Acute renal failure type: unspecified Qualified Code(s): N17.9 - Acute kidney failure, unspecified (2) Acute urinary retention Assessment/Plan: need jackson in place renal on board Code(s): R33.8 - OTHER RETENTION OF URINE (3) HTN (hypertension) Assessment/Plan: on meds monitor Code(s): I10 - ESSENTIAL (PRIMARY) HYPERTENSION Qualifiers: Hypertension type: essential hypertension Qualified Code(s): I10 - Essential (primary) hypertension (4) Hyperkalemia Code(s): E87.5 - HYPERKALEMIA (5) Pedal edema Code(s): R60.0 - LOCALIZED EDEMA (6) Acute bilateral obstructive uropathy Code(s): N13.9 - OBSTRUCTIVE AND REFLUX UROPATHY, UNSPECIFIED (7) Rash and nonspecific skin eruption Assessment/Plan: derm consult..reviewed cellulitis start abx id consult Code(s): R21 - RASH AND OTHER NONSPECIFIC SKIN ERUPTION
--- NOTE | 2017-11-16 17:02 | CONSULT ---
Consult - text type - Consultation Consultation Note: Dermatology consult patient recently diagnosed with acute renal failure, HTN, leg edema on left leg , and pustular, purpuric eruption on L calf associated with edema. Dx r/o lesions secondary to edema or vasculitis Consent to do biopsy in am Acne rosacea on cheeks RX as outpatient.
[2017-11-16 18:26] LABS: ANION GAP 13 (8-16); BLOOD UREA NITROGEN 75 mg/dL (7-18); CALCIUM 8.6 mg/dL (8.5-10.1); CHLORIDE 105 mmol/L (98-107); CO2 19 mmol/L (21-32); GLUCOSE,RANDOM 239 mg/dL (74-106); POTASSIUM 5.6 mmol/L (3.5-5.1); SODIUM 137 mmol/L (136-145)
[2017-11-16 20:02] LABS: HEMATOCRIT 28.2 % (32.4-45.2); HEMOGLOBIN 9.3 GM/dL (10.7-15.3); MCH 28.8 pg (25.7-33.7); MEAN CELL VOLUME 87.3 fl (80-96); MEAN PLT VOLUME 8.6 fl (7.5-11.1); PLATELET COUNT 332 K/MM3 (134-434); RBC 3.23 M/mm3 (3.60-5.2); RDW 12.6 % (11.6-15.6); WHITE BLOOD COUNT 11.6 K/mm3 (4.0-10.0)
[2017-11-16 20:12] LABS: ANION GAP 12 (8-16); BLOOD UREA NITROGEN 71 mg/dL (7-18); CALCIUM 8.4 mg/dL (8.5-10.1); CHLORIDE 107 mmol/L (98-107); CO2 20 mmol/L (21-32); CREATININE 5.7 mg/dL (0.55-1.02); GLUCOSE,RANDOM 236 mg/dL (74-106); POTASSIUM 5.4 mmol/L (3.5-5.1); SODIUM 139 mmol/L (136-145)
[2017-11-16] MEDS: INSULIN SLIDING SCALE (NOVOLOG) 1 VIAL SQ SCH (23:16)
[2017-11-17] MEDS ORDERED: DEXTROSE 5%-WATER - 50 ML IVPB ONE ×3 (01:26→17:35)
[2017-11-17] MEDS ORDERED: PIPERACILLIN/TAZOBACTAM 2.25 GM VIAL IVPB ONE ×3 (01:26→17:35)
[2017-11-17] MEDS: PIPERACILLIN/TAZOB 2.25 GM 2.25 GM in DEXTROSE 5%-WATER - 50 ML IVPB SCH ×3 (01:37→17:45)
[2017-11-17] MEDS: SODIUM CHLORIDE 0.45% 1,000 ML IV SCH ×2 (01:37→22:25)
[2017-11-17] MEDS: ACETAMINOPHEN 325 MG TABLET (FP) PO PRN ×2 (02:55→17:41)
[2017-11-17] MEDS: INSULIN SLIDING SCALE (NOVOLOG) 1 VIAL SQ SCH ×4 (06:30→22:22)
[2017-11-17 07:23] LABS: ALBUMIN 2.6 g/dl (3.4-5.0); ANION GAP 11 (8-16); BILIRUBIN,TOTAL 0.5 mg/dL (0.2-1.0); BLOOD UREA NITROGEN 59 mg/dL (7-18); CALCIUM 7.9 mg/dL (8.5-10.1); CHLORIDE 113 mmol/L (98-107); CO2 21 mmol/L (21-32); CREATININE 4.3 mg/dL (0.55-1.02); GLUCOSE,RANDOM 98 mg/dL (74-106); POTASSIUM 4.5 mmol/L (3.5-5.1); SGOT/AST 8 U/L (15-37); SGPT/ALT 14 U/L (12-78); SODIUM 145 mmol/L (136-145); TOT PROT 6.3 g/dl (6.4-8.2)
[2017-11-17 07:24] LABS: BASO % 0.4 % (0-2.0); EOS % 1.4 % (0-4.5); HEMATOCRIT 24.7 % (32.4-45.2); HEMOGLOBIN 8.5 GM/dL (10.7-15.3); MCH 30.1 pg (25.7-33.7); MCHC 34.6 g/dl (32.0-36.0); MEAN PLT VOLUME 8.1 fl (7.5-11.1); MONO % 6.9 % (3.8-10.2); NEUT % 80.3 % (42.8-82.8); PLATELET COUNT 283 K/MM3 (134-434); RBC 2.84 M/mm3 (3.60-5.2); RDW 12.4 % (11.6-15.6); WHITE BLOOD COUNT 11.3 K/mm3 (4.0-10.0)
[2017-11-17 07:32] LABS: ALK PHOS 174 U/L (45-117)
[2017-11-17] MEDS: HEPARIN NA (PORCINE) 5,000 UNITS/ML 1ML VIAL SQ SCH ×2 (09:26→22:26)
[2017-11-17] MEDS: METOPROLOL TARTRATE 25 MG TABLET (FP) PO SCH ×2 (09:26→22:22)
[2017-11-17] MEDS ORDERED: LIDOCAINE HCL 1%, 10 MG/ML (20ML VIAL) ONE (10:32)
--- NOTE | 2017-11-17 10:43 | CONSULT ---
Consult - text type - Consultation Consultation Note: Dermatology Procedure consent for skin biopsy obtained Area on left ant calf prepped and sterilized 1% lidocaine infiltrated SQ shave biopsy taken and submitted to pathology application of bandage will follow result
--- NOTE | 2017-11-17 11:11 | PN ---
Progress Note, Physician History of Present Illness: Reports brisk post-obstructive diuresis, receiving IVF. - Current Medication List Current Medications: Active Medications Acetaminophen (Tylenol -) 650 mg PO Q6H PRN PRN Reason: FEVER Last Admin: 11/17/17 02:55 Dose: 650 mg Albuterol Sulfate (Ventolin 0.083% Nebulizer Soln -) 1 amp NEB Q1H PRN PRN Reason: SHORT OF BREATH/WHEEZING Last Admin: 11/15/17 13:50 Dose: 1 amp Heparin Sodium (Porcine) (Heparin -) 5,000 unit SQ BID [facility] Last Admin: 11/17/17 09:26 Dose: Not Given Sodium Chloride (1/2 Normal Saline) 1,000 mls @ 125 mls/hr IV ASDIR [facility] Last Admin: 11/17/17 01:37 Dose: 125 mls/hr Piperacillin Sod/Tazobactam (Sod 2.25 gm/ Dextrose) 50 mls @ 100 mls/hr IVPB Q8H-IV [facility]; Protocol Last Admin: 11/17/17 09:26 Dose: 100 mls/hr Insulin Aspart (Novolog Vial Sliding Scale -) 1 vial SQ ACHS [facility]; Protocol Last Admin: 11/17/17 06:30 Dose: 2 units Metoprolol Tartrate (Lopressor -) 25 mg PO BID [facility] Last Admin: 11/17/17 09:26 Dose: 25 mg - Objective Vital Signs: Vital Signs Temperature 98.5 F 11/17/17 06:00 Pulse Rate 102 H 11/17/17 06:00 Respiratory Rate 20 11/17/17 06:00 Blood Pressure 120/72 11/17/17 06:00 O2 Sat by Pulse Oximetry (%) 99 11/16/17 21:00 Constitutional: Yes: No Distress, Calm Neck: Yes: Supple Cardiovascular: Yes: Regular Rate and Rhythm, Tachycardia Respiratory: Yes: Regular, CTA Bilaterally Gastrointestinal: Yes: Normal Bowel Sounds, Soft, Abdomen, Obese Genitourinary: Yes: Hyatt Present, Hematuria Edema: Yes Edema: LLE: 1+ Integumentary: Yes: Rash Labs: CBC, BMP 11/17/17 06:20 11/17/17 06:20 INR, PTT INR 1.19 (0.82-1.09) H 11/14/17 16:58 Problem List - Problems (1) Acute urinary retention Code(s): R33.8 - OTHER RETENTION OF URINE (2) HTN (hypertension) Code(s): I10 - ESSENTIAL (PRIMARY) HYPERTENSION Qualifiers: Hypertension type: essential hypertension Qualified Code(s): I10 - Essential (primary) hypertension (3) Hyperkalemia Code(s): E87.5 - HYPERKALEMIA (4) Pedal edema Code(s): R60.0 - LOCALIZED EDEMA (5) Acute bilateral obstructive uropathy Code(s): N13.9 - OBSTRUCTIVE AND REFLUX UROPATHY, UNSPECIFIED Assessment/Plan Transthoracic echocardiography to assess LV/RV and valvular function 1. Sinus tachycardia and hypertension improved 2. BETH and hyperkalemia referable to obstructive uropathy with urinary retention and moderate bilateral hydronephrosis 3. Left pedal edema, etiology unclear as ultrasound was inconclusive for ruling out DVT. ?lymphedema 4. Left leg rash r/o vasculitis PLAN: 1. Hyatt placed with traumatic hematuria, urology management of urinary retention and hydronephrosis 2. Continue Lopressor 25 bid 3. Monitor electrolytes during post-obstructive diuresis including K level and renal function with IVF 4. Left CT venogram once renal fxn recovers 5. Renal and derm input appreciated, f/u shave biopsy 6. DVT prophylaxis
--- NOTE | 2017-11-17 11:31 | CON.ID ---
Consult Consult Specialty:: infectious disdeases Referred by:: Reason for Consultation:: cellulittis of the left leg,uti - History of Present Illness Chief Complaint: abd fullness and pain and swelling of the left leg History of Present Illness: 57 year old female with no significant PMH who presents with left leg swelling for about 4-5 days and feeling ill with abdominal fullness and constipation. She found herself going less to the bathroom and had some lower abdominal cramping. She denies fever but complained of chills. Denies chest pain, shortness of breath or palpitations. She denies paroxysmal nocturnal dyspnea or orthopnea. She denies vomiting or diarrhea. She denies headache or lightheadedness. She has edema extending up to her left thigh. She also has BETH with elevation of creatinine and hyperkalemia. Id was called because patient continues to have swelling of her left leg with warmth Patient mentions that currently she is better and her left leg has improved since admission patient has been seen by cardiology and nephrology and also by dermatology as it seems patient had some rash over the left leg and scraping were taken from the leg currently her leg is still warm and is extending to thigh also her wbc had increased.She has a foleys catheter and does have hematuria patient otherwise feels better and her renal function are improving - History Source History Provided By: Patient Limitations to Obtaining History: No Limitations - Past Medical History ...LMP Comment: OVER 1 YEAR AGO ...: No - Alcohol/Substance Use Hx Alcohol Use: No History of Substance Use: reports: None - Smoking History Smoking history: Never smoked Have you smoked in the past 12 months: No Home Medications - Allergies Allergies/Adverse Reactions: Allergies Allergy/AdvReac Type Severity Reaction Status Date / Time No Known Allergies Allergy Verified 11/14/17 15:16 - Home Medications Home Medications: Ambulatory Orders NK [No Known Home Medication] 11/14/17 Family Disease History - Family Disease History Family Disease History: CA: Mother (breast CA) Review of Systems - Review of Systems Constitutional: reports: No Symptoms Eyes: reports: No Symptoms HENT: reports: No Symptoms Neck: reports: No Symptoms Cardiovascular: reports: No Symptoms Respiratory: reports: No Symptoms Gastrointestinal: reports: No Symptoms Genitourinary: reports: Hematuria, Other (inability to pass urine) Musculoskeletal: reports: No Symptoms Integumentary: reports: Change in Color, Erythema (left leg) Neurological: reports: No Symptoms Hematology/Lymphatic: reports: No Symptoms Psychiatric: reports: No Symptoms Physical Exam Vital Signs: Vital Signs Temperature 98.5 F 11/17/17 06:00 Pulse Rate 102 H 11/17/17 06:00 Respiratory Rate 20 11/17/17 06:00 Blood Pressure 120/72 11/17/17 06:00 O2 Sat by Pulse Oximetry (%) 99 11/16/17 21:00 Constitutional: Yes: No Distress, Calm, Obese Eyes: Yes: Conjunctiva Clear HENT: Yes: Atraumatic, Normocephalic Cardiovascular: Yes: Regular Rate and Rhythm Respiratory: Yes: Regular, CTA Bilaterally Gastrointestinal: Yes: Normal Bowel Sounds, Soft Renal/: Yes: Hyatt Present, Hematuria Musculoskeletal: Yes: WNL Extremities: Yes: Erythema (left leg with swelling), Other Neurological: Yes: Alert, Oriented Psychiatric: Yes: Alert, Oriented Labs: CBC, BMP 11/17/17 06:20 11/17/17 06:20 Imaging - Results Cat Scan: Report Reviewed, Image Reviewed Ultrasound: Report Reviewed, Image Reviewed Assessment/Plan Problem List - Problems (1) Acute urinary retention Code(s): R33.8 - OTHER RETENTION OF URINE (2) HTN (hypertension) Code(s): I10 - ESSENTIAL (PRIMARY) HYPERTENSION Qualifiers: Hypertension type: essential hypertension Qualified Code(s): I10 - Essential (primary) hypertension (3) Hyperkalemia Code(s): E87.5 - HYPERKALEMIA (4) Pedal edema Code(s): R60.0 - LOCALIZED EDEMA (5) Acute bilateral obstructive uropathy Code(s): N13.9 - OBSTRUCTIVE AND REFLUX UROPATHY, UNSPECIFIED 6 cellulitis of the left leg i think patient could very well have underlying pathology the u/s done could not be sensitive i have started patient on zosyn as i think she does have cellulittis, i think we should one more u/s cardiolgy on case with nephro rest continue current mgmt we will see in couple of days how the leg looks and then decide on further abx
[2017-11-17] MEDS ORDERED: INSULIN (NOVOLOG) ASPART 100 UNITS/ML 10ML VIAL ONE ×2 (12:09→22:16)
--- NOTE | 2017-11-17 14:30 | PN ---
Progress Note, Physician History of Present Illness: Pt seen and examined at bedside. She is awake and alert. She still has hematuria. - Current Medication List Current Medications: Active Medications Acetaminophen (Tylenol -) 650 mg PO Q6H PRN PRN Reason: FEVER Last Admin: 11/17/17 02:55 Dose: 650 mg Albuterol Sulfate (Ventolin 0.083% Nebulizer Soln -) 1 amp NEB Q1H PRN PRN Reason: SHORT OF BREATH/WHEEZING Last Admin: 11/15/17 13:50 Dose: 1 amp Heparin Sodium (Porcine) (Heparin -) 5,000 unit SQ BID [facility] Last Admin: 11/17/17 09:26 Dose: Not Given Sodium Chloride (1/2 Normal Saline) 1,000 mls @ 125 mls/hr IV ASDIR [facility] Last Admin: 11/17/17 01:37 Dose: 125 mls/hr Piperacillin Sod/Tazobactam (Sod 2.25 gm/ Dextrose) 50 mls @ 100 mls/hr IVPB Q8H-IV [facility]; Protocol Last Admin: 11/17/17 09:26 Dose: 100 mls/hr Insulin Aspart (Novolog Vial Sliding Scale -) 1 vial SQ ACHS [facility]; Protocol Last Admin: 11/17/17 12:25 Dose: 4 units Metoprolol Tartrate (Lopressor -) 25 mg PO BID [facility] Last Admin: 11/17/17 09:26 Dose: 25 mg - Objective Vital Signs: Vital Signs Temperature 98.5 F 11/17/17 06:00 Pulse Rate 102 H 11/17/17 06:00 Respiratory Rate 20 11/17/17 06:00 Blood Pressure 120/72 11/17/17 06:00 O2 Sat by Pulse Oximetry (%) 99 11/16/17 21:00 Constitutional: Yes: Calm Eyes: Yes: Conjunctiva Clear HENT: Yes: Atraumatic Neck: Yes: Supple Cardiovascular: Yes: S1, S2 Respiratory: Yes: CTA Bilaterally Gastrointestinal: Yes: Soft, Abdomen, Obese Genitourinary: Yes: Jackson Present, Hematuria Musculoskeletal: Yes: WNL Edema: LLE: Trace Integumentary: Yes: Rash Neurological: Yes: Oriented Psychiatric: Yes: Oriented Labs: CBC, BMP 11/17/17 06:20 11/17/17 06:20 INR, PTT INR 1.19 (0.82-1.09) H 11/14/17 16:58 Problem List - Problems (1) Acute renal failure (ARF) Code(s): N17.9 - ACUTE KIDNEY FAILURE, UNSPECIFIED Qualifiers: Acute renal failure type: unspecified Qualified Code(s): N17.9 - Acute kidney failure, unspecified (2) Acute urinary retention Code(s): R33.8 - OTHER RETENTION OF URINE (3) HTN (hypertension) Code(s): I10 - ESSENTIAL (PRIMARY) HYPERTENSION Qualifiers: Hypertension type: essential hypertension Qualified Code(s): I10 - Essential (primary) hypertension (4) Hyperkalemia Code(s): E87.5 - HYPERKALEMIA Assessment/Plan Current Medications Generic Name Dose Route Start Last Admin Trade Name Freq PRN Reason Stop Dose Admin Acetaminophen 650 mg 11/15/17 17:06 11/17/17 02:55 Tylenol - PO 650 mg Q6H PRN Administration FEVER Albuterol Sulfate 1 amp 11/15/17 11:55 11/15/17 13:50 Ventolin 0.083% Nebulizer Soln - NEB 1 amp Q1H PRN Administration SHORT OF BREATH/WHEEZING Heparin Sodium (Porcine) 5,000 unit 11/15/17 10:00 11/17/17 09:26 Heparin - SQ Not Given BID [facility] Sodium Chloride 1,000 mls @ 125 mls/hr 11/15/17 22:00 11/17/17 01:37 1/2 Normal Saline IV 125 mls/hr ASDIR [facility] Administration Piperacillin Sod/Tazobactam 50 mls @ 100 mls/hr 11/17/17 02:00 11/17/17 09:26 Sod 2.25 gm/ Dextrose IVPB 100 mls/hr Q8H-IV [facility] Administration Protocol Insulin Aspart 1 vial 11/16/17 22:30 11/17/17 12:25 Novolog Vial Sliding Scale - SQ 4 units ACHS [facility] Administration Protocol Metoprolol Tartrate 25 mg 11/15/17 10:30 11/17/17 09:26 Lopressor - PO 25 mg BID [facility] Administration Laboratory Tests 11/16/17 11/16/17 11/16/17 06:15 06:15 06:15 Chloride BUN Creatinine Hemoglobin A1c % LUIS M-Anil Pending ALEENA Screen Pending c-ANCA Pending Proteinase 3 (PR3) Pending p-ANCA Pending Atypical p-ANCA Pending Myeloperoxidase Ab Pending Double Strand DNA Ab Pending Glomerular Base Memb Ab Pending Hepatitis A Ab Total Pending Hep Bs Antigen Pending Hep Bs Antibody Pending Hep B Core Total Ab Pending HCV Quantitation Pending Hepatitis C RNA Pending 11/17/17 11/17/17 06:20 06:20 Chloride 113 H BUN 59 H Creatinine 4.3 H Hemoglobin A1c % 14.8 H LUIS M-Anil ALEENA Screen c-ANCA Proteinase 3 (PR3) p-ANCA Atypical p-ANCA Myeloperoxidase Ab Double Strand DNA Ab Glomerular Base Memb Ab Hepatitis A Ab Total Hep Bs Antigen Hep Bs Antibody Hep B Core Total Ab HCV Quantitation Hepatitis C RNA Impression 1. BETH 2. hyperkalemia 3. urinary retention 4. constipation 5. left leg edema 6. rash 7. DM Plan - renal function is improving - potassium improved - monitor urine output - recall for follow up, pt has hematuria - flush jackson if output decreased, may need CBI - derm input appreciated, follow up biopsy - renal workup in progress, serologies pending - alc is elevated - cont fluids for now - edema is improving - age appropriate screening - will follow Dr Crowley
--- NOTE | 2017-11-17 17:26 | PN ---
Progress Note, Physician History of Present Illness: still having hematuria - Current Medication List Current Medications: Active Medications Acetaminophen (Tylenol -) 650 mg PO Q6H PRN PRN Reason: FEVER Last Admin: 11/17/17 02:55 Dose: 650 mg Albuterol Sulfate (Ventolin 0.083% Nebulizer Soln -) 1 amp NEB Q1H PRN PRN Reason: SHORT OF BREATH/WHEEZING Last Admin: 11/15/17 13:50 Dose: 1 amp Heparin Sodium (Porcine) (Heparin -) 5,000 unit SQ BID [facility]ZIO Last Admin: 11/17/17 09:26 Dose: Not Given Sodium Chloride (1/2 Normal Saline) 1,000 mls @ 125 mls/hr IV ASDIR EZIO Last Admin: 11/17/17 01:37 Dose: 125 mls/hr Piperacillin Sod/Tazobactam (Sod 2.25 gm/ Dextrose) 50 mls @ 100 mls/hr IVPB Q8H-IV [facility]; Protocol Last Admin: 11/17/17 09:26 Dose: 100 mls/hr Insulin Aspart (Novolog Vial Sliding Scale -) 1 vial SQ ACHS [facility]; Protocol Last Admin: 11/17/17 12:25 Dose: 4 units Metoprolol Tartrate (Lopressor -) 25 mg PO BID [facility] Last Admin: 11/17/17 09:26 Dose: 25 mg - Objective Vital Signs: Vital Signs Temperature 99.7 F H 11/17/17 14:00 Pulse Rate 119 H 11/17/17 14:00 Respiratory Rate 20 11/17/17 06:00 Blood Pressure 134/72 11/17/17 14:00 O2 Sat by Pulse Oximetry (%) 99 11/16/17 21:00 Constitutional: Yes: No Distress HENT: Yes: Atraumatic Neck: Yes: Supple Cardiovascular: Yes: Regular Rate and Rhythm Respiratory: Yes: CTA Bilaterally Gastrointestinal: Yes: Normal Bowel Sounds Edema: Yes Edema: RLE: 1+ (erythema) Neurological: Yes: Alert, Oriented Labs: CBC, BMP 11/17/17 06:20 11/17/17 06:20 INR, PTT INR 1.19 (0.82-1.09) H 11/14/17 16:58 Problem List - Problems (1) Acute renal failure (ARF) Assessment/Plan: bloody output via jackson awaiting urology Code(s): N17.9 - ACUTE KIDNEY FAILURE, UNSPECIFIED Qualifiers: Acute renal failure type: unspecified Qualified Code(s): N17.9 - Acute kidney failure, unspecified (2) Acute urinary retention Assessment/Plan: need jackson in place renal on board Code(s): R33.8 - OTHER RETENTION OF URINE (3) HTN (hypertension) Assessment/Plan: on meds monitor Code(s): I10 - ESSENTIAL (PRIMARY) HYPERTENSION Qualifiers: Hypertension type: essential hypertension Qualified Code(s): I10 - Essential (primary) hypertension (4) Hyperkalemia Assessment/Plan: resolved Code(s): E87.5 - HYPERKALEMIA (5) Pedal edema Code(s): R60.0 - LOCALIZED EDEMA (6) Acute bilateral obstructive uropathy Code(s): N13.9 - OBSTRUCTIVE AND REFLUX UROPATHY, UNSPECIFIED (7) Rash and nonspecific skin eruption Assessment/Plan: derm consult..reviewed cellulitis start abx biopsy done by derm Code(s): R21 - RASH AND OTHER NONSPECIFIC SKIN ERUPTION
--- NOTE | 2017-11-17 18:04 | PN ---
Progress Note (short form) - Note Progress Note: gross hematuria requiring intermittant irrigation secondary to clots Irrigated at bedside, but clots appear too large for catheter will plan for cysto/evac clots fulguration of bleeding in am
[2017-11-18 00:16] LABS: HBSAG SCREEN Negative (Negative); HEP A AB, IGM Negative (Negative); HEP B CORE AB, TOT Positive (Negative)
[2017-11-18] MEDS ORDERED: DEXTROSE 5%-WATER - 50 ML IVPB ONE ×2 (02:01→09:14)
[2017-11-18] MEDS ORDERED: PIPERACILLIN/TAZOBACTAM 2.25 GM VIAL IVPB ONE ×2 (02:01→09:14)
[2017-11-18] MEDS: PIPERACILLIN/TAZOB 2.25 GM 2.25 GM in DEXTROSE 5%-WATER - 50 ML IVPB SCH ×3 (02:03→18:35)
[2017-11-18] MEDS: INSULIN SLIDING SCALE (NOVOLOG) 1 VIAL SQ SCH ×4 (06:32→21:05)
[2017-11-18 07:06] LABS: ANION GAP 10 (8-16); BLOOD UREA NITROGEN 45 mg/dL (7-18); CALCIUM 7.8 mg/dL (8.5-10.1); CHLORIDE 111 mmol/L (98-107); CO2 24 mmol/L (21-32); CREATININE 2.7 mg/dL (0.55-1.02); GLUCOSE,RANDOM 87 mg/dL (74-106); POTASSIUM 4.2 mmol/L (3.5-5.1); SODIUM 145 mmol/L (136-145)
[2017-11-18] MEDS: METOPROLOL TARTRATE 25 MG TABLET (FP) PO SCH ×2 (09:22→21:04)
[2017-11-18] MEDS: HEPARIN NA (PORCINE) 5,000 UNITS/ML 1ML VIAL SQ SCH (09:23)
--- NOTE | 2017-11-18 10:07 | PN ---
Progress Note, Physician History of Present Illness: Continued hematuria with large clots planned for cystoscopy and clot evacuation. Repeat vascular U/S negative for DVT LLE. - Current Medication List Current Medications: Active Medications Acetaminophen (Tylenol -) 650 mg PO Q6H PRN PRN Reason: FEVER Last Admin: 11/17/17 17:41 Dose: 650 mg Albuterol Sulfate (Ventolin 0.083% Nebulizer Soln -) 1 amp NEB Q1H PRN PRN Reason: SHORT OF BREATH/WHEEZING Last Admin: 11/15/17 13:50 Dose: 1 amp Heparin Sodium (Porcine) (Heparin -) 5,000 unit SQ BID EZIO Last Admin: 11/18/17 09:23 Dose: Not Given Sodium Chloride (1/2 Normal Saline) 1,000 mls @ 125 mls/hr IV ASDIR EZIO Last Admin: 11/17/17 22:25 Dose: 125 mls/hr Piperacillin Sod/Tazobactam (Sod 2.25 gm/ Dextrose) 50 mls @ 100 mls/hr IVPB Q8H-IV [facility]; Protocol Last Admin: 11/18/17 09:22 Dose: 100 mls/hr Insulin Aspart (Novolog Vial Sliding Scale -) 1 vial SQ ACHS [facility]; Protocol Last Admin: 11/18/17 06:32 Dose: Not Given Metoprolol Tartrate (Lopressor -) 25 mg PO BID [facility] Last Admin: 11/18/17 09:22 Dose: 25 mg - Objective Vital Signs: Vital Signs Temperature 98.1 F 11/18/17 06:00 Pulse Rate 99 H 11/18/17 06:00 Respiratory Rate 20 11/18/17 08:38 Blood Pressure 120/63 11/18/17 06:00 O2 Sat by Pulse Oximetry (%) 97 11/18/17 08:38 Constitutional: Yes: No Distress, Calm Neck: Yes: Supple Cardiovascular: Yes: Regular Rate and Rhythm Respiratory: Yes: Regular, CTA Bilaterally Gastrointestinal: Yes: Soft, Hypoactive Bowel Sounds Genitourinary: Yes: Hyatt Present, Hematuria Edema: Yes Edema: LLE: 1+ Labs: CBC, BMP 11/17/17 06:20 11/18/17 05:30 INR, PTT INR 1.19 (0.82-1.09) H 11/14/17 16:58 - ....Imaging Ultrasound: Report Reviewed (Negative DVT LLE) EKG: Report Reviewed (Tele: SR) Problem List - Problems (1) Acute urinary retention Code(s): R33.8 - OTHER RETENTION OF URINE (2) HTN (hypertension) Code(s): I10 - ESSENTIAL (PRIMARY) HYPERTENSION Qualifiers: Hypertension type: essential hypertension Qualified Code(s): I10 - Essential (primary) hypertension (3) Hyperkalemia Code(s): E87.5 - HYPERKALEMIA (4) Pedal edema Code(s): R60.0 - LOCALIZED EDEMA (5) Acute bilateral obstructive uropathy Code(s): N13.9 - OBSTRUCTIVE AND REFLUX UROPATHY, UNSPECIFIED Assessment/Plan Transthoracic echocardiography to assess LV/RV and valvular function 1. Sinus tachycardia and hypertension improved 2. BETH and hyperkalemia referable to obstructive uropathy with urinary retention and moderate bilateral hydronephrosis improving 3. Left pedal edema, etiology unclear as ultrasound was inconclusive for ruling out DVT. 4. Left leg rash r/o vasculitis, cellulitis PLAN: 1. Planned for cystoscopy and clot evacuation 2. Continue Lopressor 25 bid, empiric abx 3. Monitor electrolytes during post-obstructive diuresis including K level and renal function recovery 4. Renal and derm input appreciated, f/u shave biopsy 5. DVT prophylaxis, d/c telemetry
[2017-11-18 10:18] LABS: ANTIGLOMERULAR BASEMENT MEN.AB 3 units (0-20)
--- NOTE | 2017-11-18 12:47 | PN ---
Progress Note, Physician History of Present Illness: clinically patient is stable patient going for evacuation of the clot probably cystoscopy - Current Medication List Current Medications: Active Medications Acetaminophen (Tylenol -) 650 mg PO Q6H PRN PRN Reason: FEVER Last Admin: 11/17/17 17:41 Dose: 650 mg Albuterol Sulfate (Ventolin 0.083% Nebulizer Soln -) 1 amp NEB Q1H PRN PRN Reason: SHORT OF BREATH/WHEEZING Last Admin: 11/15/17 13:50 Dose: 1 amp Heparin Sodium (Porcine) (Heparin -) 5,000 unit SQ BID EZIO Last Admin: 11/18/17 09:23 Dose: Not Given Sodium Chloride (1/2 Normal Saline) 1,000 mls @ 125 mls/hr IV ASDIR EZIO Last Admin: 11/17/17 22:25 Dose: 125 mls/hr Piperacillin Sod/Tazobactam (Sod 2.25 gm/ Dextrose) 50 mls @ 100 mls/hr IVPB Q8H-IV [facility]; Protocol Last Admin: 11/18/17 09:22 Dose: 100 mls/hr Insulin Aspart (Novolog Vial Sliding Scale -) 1 vial SQ ACHS [facility]; Protocol Last Admin: 11/18/17 06:32 Dose: Not Given Metoprolol Tartrate (Lopressor -) 25 mg PO BID [facility] Last Admin: 11/18/17 09:22 Dose: 25 mg - Objective Vital Signs: Vital Signs Temperature 97.9 F 11/18/17 11:57 Pulse Rate 97 H 11/18/17 11:57 Respiratory Rate 20 11/18/17 11:57 Blood Pressure 127/82 11/18/17 11:57 O2 Sat by Pulse Oximetry (%) 97 11/18/17 08:38 Constitutional: Yes: No Distress, Calm Cardiovascular: Yes: Regular Rate and Rhythm Respiratory: Yes: Regular, CTA Bilaterally Gastrointestinal: Yes: Normal Bowel Sounds, Soft Musculoskeletal: Yes: WNL Extremities: Yes: Other (left leg redness much better swelling less) Integumentary: Yes: Erythema (improving) Neurological: Yes: Alert, Oriented Psychiatric: Yes: Alert, Oriented Labs: CBC, BMP 11/17/17 06:20 11/18/17 05:30 INR, PTT INR 1.19 (0.82-1.09) H 11/14/17 16:58 Assessment/Plan Problem List - Problems (1) Acute urinary retention Code(s): R33.8 - OTHER RETENTION OF URINE (2) HTN (hypertension) Code(s): I10 - ESSENTIAL (PRIMARY) HYPERTENSION Qualifiers: Hypertension type: essential hypertension Qualified Code(s): I10 - Essential (primary) hypertension (3) Hyperkalemia Code(s): E87.5 - HYPERKALEMIA (4) Pedal edema Code(s): R60.0 - LOCALIZED EDEMA (5) Acute bilateral obstructive uropathy Code(s): N13.9 - OBSTRUCTIVE AND REFLUX UROPATHY, UNSPECIFIED 6 cellulitis of the left leg plan continue abx for now will monitor the leg if improving then will switch to oral rest continue current mgmt
[2017-11-18] MEDS ORDERED: MIDAZOLAM HCL 2 MG/2 ML SINGLE DOSE VIAL ONE ×2 (13:16→13:44)
[2017-11-18] MEDS ORDERED: PROPOFOL 20 ML ONE (13:16)
[2017-11-18] MEDS ORDERED: BUPIVACAINE 0.75% IN DEXTROSE/PF 2ML AMPULE NR ONE (13:31)
--- NOTE | 2017-11-18 14:13 | OP ---
Operative Note - Note: Operative Date: 11/18/17 Pre-Operative Diagnosis: gross heme, clot retention Operation: cysto, evac of clots, fulg bleeding, bladder bx Findings: clot retention, hemorrhagic cystitis Post-Operative Diagnosis: Same as Pre-op Surgeon: Irineo Liao Anesthesia: Spinal Specimens Removed: clots, bladder bx Operative Report Dictated: Yes
[2017-11-18] MEDS ORDERED: ALBUTEROL SO4 0.083% IH SOL 2.5 MG/3 ML VIAL.NEB. NEB PRN (14:34)
[2017-11-18] MEDS ORDERED: CALCIUM GLUCONATE 10% - 1,000 MG/10 ML VIAL IVPUSH ONE (14:45)
[2017-11-18] MEDS ORDERED: LACTULOSE 20 GM/30 ML UDC (FOR ORAL USE ONLY) PO ONE (14:45)
--- NOTE | 2017-11-18 16:20 | PN ---
Progress Note, Physician History of Present Illness: s/p cystoscopy and biopsy urine now clear in bag - Current Medication List Current Medications: Active Medications Acetaminophen (Tylenol -) 650 mg PO Q6H PRN PRN Reason: FEVER Albuterol Sulfate (Ventolin 0.083% Nebulizer Soln -) 1 amp NEB Q1H PRN PRN Reason: SHORT OF BREATH/WHEEZING Sodium Chloride (1/2 Normal Saline) 1,000 mls @ 125 mls/hr IV ASDIR EZIO Piperacillin Sod/Tazobactam (Sod 2.25 gm/ Dextrose) 50 mls @ 100 mls/hr IVPB Q8H-IV [facility]; Protocol Insulin Aspart (Novolog Vial Sliding Scale -) 1 vial SQ ACHS [facility]; Protocol Metoprolol Tartrate (Lopressor -) 25 mg PO BID [facility] - Objective Vital Signs: Vital Signs Temperature 98.2 F 11/18/17 15:47 Pulse Rate 94 H 11/18/17 15:47 Respiratory Rate 20 11/18/17 15:47 Blood Pressure 115/72 11/18/17 15:47 O2 Sat by Pulse Oximetry (%) 97 11/18/17 15:47 Constitutional: Yes: No Distress HENT: Yes: Atraumatic Neck: Yes: Supple Cardiovascular: Yes: Regular Rate and Rhythm Respiratory: Yes: CTA Bilaterally Gastrointestinal: Yes: Normal Bowel Sounds Genitourinary: Yes: Hematuria Extremities: Yes: Other (llex less warm and swollen) Neurological: Yes: Alert, Oriented Labs: CBC, BMP 11/17/17 06:20 11/18/17 05:30 INR, PTT INR 1.19 (0.82-1.09) H 11/14/17 16:58 Problem List - Problems (1) Acute renal failure (ARF) Assessment/Plan: urine out puts are clear cr improving clinically much better Code(s): N17.9 - ACUTE KIDNEY FAILURE, UNSPECIFIED Qualifiers: Acute renal failure type: unspecified Qualified Code(s): N17.9 - Acute kidney failure, unspecified (2) Acute urinary retention Assessment/Plan: jackson in place Code(s): R33.8 - OTHER RETENTION OF URINE (3) HTN (hypertension) Assessment/Plan: on meds monitor Code(s): I10 - ESSENTIAL (PRIMARY) HYPERTENSION Qualifiers: Hypertension type: essential hypertension Qualified Code(s): I10 - Essential (primary) hypertension (4) Hyperkalemia Assessment/Plan: resolved Code(s): E87.5 - HYPERKALEMIA (5) Pedal edema Code(s): R60.0 - LOCALIZED EDEMA (6) Acute bilateral obstructive uropathy Code(s): N13.9 - OBSTRUCTIVE AND REFLUX UROPATHY, UNSPECIFIED (7) Rash and nonspecific skin eruption Code(s): R21 - RASH AND OTHER NONSPECIFIC SKIN ERUPTION
[2017-11-18 16:30] LABS: ATYPICAL pANCA <1:20 titer (Neg:<1:20); C-ANCA <1:20 titer (Neg:<1:20); P-ANCA <1:20 titer (Neg:<1:20); PROTEINASE-3 ANTIBODY <3.5 U/mL (0.0-3.5)
--- NOTE | 2017-11-18 17:05 | PN ---
Progress Note, Physician History of Present Illness: Pt seen and examined at bedside. She is awake and alert. She went for cysto. - Current Medication List Current Medications: Active Medications Acetaminophen (Tylenol -) 650 mg PO Q6H PRN PRN Reason: FEVER Albuterol Sulfate (Ventolin 0.083% Nebulizer Soln -) 1 amp NEB Q1H PRN PRN Reason: SHORT OF BREATH/WHEEZING Sodium Chloride (1/2 Normal Saline) 1,000 mls @ 125 mls/hr IV ASDIR EZIO Piperacillin Sod/Tazobactam (Sod 2.25 gm/ Dextrose) 50 mls @ 100 mls/hr IVPB Q8H-IV [facility]; Protocol Insulin Aspart (Novolog Vial Sliding Scale -) 1 vial SQ ACHS [facility]; Protocol Metoprolol Tartrate (Lopressor -) 25 mg PO BID [facility] - Objective Vital Signs: Vital Signs Temperature 98.2 F 11/18/17 15:47 Pulse Rate 94 H 11/18/17 15:47 Respiratory Rate 20 11/18/17 15:47 Blood Pressure 115/72 11/18/17 15:47 O2 Sat by Pulse Oximetry (%) 97 11/18/17 15:47 Constitutional: Yes: Calm Eyes: Yes: Conjunctiva Clear HENT: Yes: Atraumatic Cardiovascular: Yes: S1, S2 Respiratory: Yes: CTA Bilaterally Gastrointestinal: Yes: Soft Genitourinary: Yes: Hyatt Present Musculoskeletal: Yes: WNL Edema: Yes Edema: LLE: Trace Integumentary: Yes: Rash Neurological: Yes: Oriented Psychiatric: Yes: Oriented Labs: CBC, BMP 11/17/17 06:20 11/18/17 05:30 INR, PTT INR 1.19 (0.82-1.09) H 11/14/17 16:58 Problem List - Problems (1) Acute renal failure (ARF) Code(s): N17.9 - ACUTE KIDNEY FAILURE, UNSPECIFIED Qualifiers: Acute renal failure type: unspecified Qualified Code(s): N17.9 - Acute kidney failure, unspecified (2) Acute urinary retention Code(s): R33.8 - OTHER RETENTION OF URINE (3) HTN (hypertension) Code(s): I10 - ESSENTIAL (PRIMARY) HYPERTENSION Qualifiers: Hypertension type: essential hypertension Qualified Code(s): I10 - Essential (primary) hypertension (4) Hyperkalemia Code(s): E87.5 - HYPERKALEMIA Assessment/Plan Current Medications Generic Name Dose Route Start Last Admin Trade Name Freq PRN Reason Stop Dose Admin Acetaminophen 650 mg 11/18/17 14:34 Tylenol - PO Q6H PRN FEVER Albuterol Sulfate 1 amp 11/18/17 14:34 Ventolin 0.083% Nebulizer Soln - NEB Q1H PRN SHORT OF BREATH/WHEEZING Sodium Chloride 1,000 mls @ 125 mls/hr 11/18/17 14:34 1/2 Normal Saline IV ASDIR EZIO Piperacillin Sod/Tazobactam 50 mls @ 100 mls/hr 11/18/17 18:00 Sod 2.25 gm/ Dextrose IVPB Q8H-IV [facility] Protocol Insulin Aspart 1 vial 11/18/17 16:30 Novolog Vial Sliding Scale - SQ ACHS [facility] Protocol Metoprolol Tartrate 25 mg 11/18/17 22:00 Lopressor - PO BID EZIO Laboratory Tests 11/16/17 11/16/17 11/16/17 06:15 06:15 06:15 BUN Creatinine LUIS M-Anil Pending ALEENA Screen Negative c-ANCA <1:20 Proteinase 3 (PR3) <3.5 p-ANCA <1:20 Atypical p-ANCA <1:20 Myeloperoxidase Ab <9.0 Double Strand DNA Ab <1 Glomerular Base Memb Ab 3 Hep Bs Antigen Negative Hep Bs Antibody Reactive Hep B Core Total Ab Positive H 11/18/17 05:30 BUN 45 H Creatinine 2.7 H LUIS M-Anil ALEENA Screen c-ANCA Proteinase 3 (PR3) p-ANCA Atypical p-ANCA Myeloperoxidase Ab Double Strand DNA Ab Glomerular Base Memb Ab Hep Bs Antigen Hep Bs Antibody Hep B Core Total Ab Impression 1. BEHT 2. hyperkalemia 3. urinary retention 4. constipation 5. left leg edema 6. rash 7. DM 8. hx of hep b exposure Plan - renal function is improved - repeat labs in am - edema is improved - hematuria improved - s/p cysto, follow up biopsy - follow up skin biopsy - serologic workup negative so far - diabetic diet - age appropriate screening - will follow Dr Crowley
[2017-11-18] MEDS: SODIUM CHLORIDE 0.45% 1,000 ML IV SCH (17:39)
[2017-11-18] MEDS ORDERED: INSULIN (NOVOLOG) ASPART 100 UNITS/ML 10ML VIAL ONE ×2 (19:14→21:02)
[2017-11-18] MEDS: ACETAMINOPHEN 325 MG TABLET (FP) PO PRN (21:03)
[2017-11-19] MEDS: SODIUM CHLORIDE 0.45% 1,000 ML IV SCH ×3 (00:15→16:54)
[2017-11-19] MEDS ORDERED: PIPERACILLIN/TAZOBACTAM 2.25 GM VIAL IVPB ONE ×3 (00:33→16:20)
[2017-11-19] MEDS ORDERED: DEXTROSE 5%-WATER - 50 ML IVPB ONE ×3 (00:34→16:20)
[2017-11-19] MEDS: PIPERACILLIN/TAZOB 2.25 GM 2.25 GM in DEXTROSE 5%-WATER - 50 ML IVPB SCH ×3 (02:46→16:59)
[2017-11-19] MEDS: ACETAMINOPHEN 325 MG TABLET (FP) PO PRN ×2 (03:05→09:11)
[2017-11-19] MEDS: INSULIN SLIDING SCALE (NOVOLOG) 1 VIAL SQ SCH ×4 (06:30→21:24)
[2017-11-19] MEDS ORDERED: INSULIN (NOVOLOG) ASPART 100 UNITS/ML 10ML VIAL ONE ×3 (06:39→21:17)
--- NOTE | 2017-11-19 07:58 | OP ---
DATE OF OPERATION: DATE OF DICTATION: 11/18/2017 PREOPERATIVE DIAGNOSIS: Gross hematuria, clot retention. POSTOPERATIVE DIAGNOSIS: Gross hematuria, clot retention, plus hemorrhagic cystitis. PROCEDURE: Cystoscopy, evacuation of clots, fulguration of bleeding, and bladder biopsy. SURGEON: Nola Contreras MD INDICATIONS: Patient is a 57-year-old female admitted with urinary retention, urethral stricture, had persistent gross hematuria with clot retension, was taken to the OR for cystoscopy evaluation and treatment. DESCRIPTION OF PROCEDURE: Patient was taken to the OR, placed supine on the table. With cardiac monitoring administered, spinal anesthetic was given, and she was prepped and draped in dorsal lithotomy position. The existing Hyatt catheter was then removed, and a 26-sheath resectoscope with the visual obturator was inserted into the urethra without difficulty. There was evidence of prior stricture of urethra, but the scope was easily advanced. The bladder was visualized. There were multiple large clots in the bladder. These were removed with Ellik evacuator in their entirety, so the entire bladder could be inspected. With all the clots removed, bilateral ureteral orifices were seen in their normal anatomic position. There was significant bladder wall erythema both posteriorly and at the dome with some bleeding. These sites were fulgurated, and a food service representative sample was biopsied with a transurethral resection, the base of which was also fulgurated. No evidence of tumors was noted. No evidence of any active bleeding. At this point, the resectoscope was then removed, and a 22-[place]ish Hyatt was then placed to straight drainage. [place]-tinged urine was retrieved. Patient was awoken from anesthesia and transferred to recovery room in stable condition. There were no complications. ESTIMATED BLOOD LOSS: Minimal. NOLA CONTRERAS M.D. [id number]
[2017-11-19] MEDS: METOPROLOL TARTRATE 25 MG TABLET (FP) PO SCH ×2 (09:10→21:25)
[2017-11-19 09:23] LABS: ANION GAP 12 (8-16); BLOOD UREA NITROGEN 36 mg/dL (7-18); CHLORIDE 107 mmol/L (98-107); CO2 22 mmol/L (21-32); CREATININE 2.3 mg/dL (0.55-1.02); GLUCOSE,RANDOM 216 mg/dL (74-106); POTASSIUM 4.7 mmol/L (3.5-5.1); SODIUM 141 mmol/L (136-145)
--- NOTE | 2017-11-19 12:00 | PN ---
Progress Note, Physician Chief Complaint: Events noted Feel better History of Present Illness: Patient was seen and examined. Awake and alert. Chart was reviewed Hyatt catheter in place and s/p cystoscopy Denies chest pain, SOB or palpitations - Current Medication List Current Medications: Active Medications Acetaminophen (Tylenol -) 650 mg PO Q6H PRN PRN Reason: FEVER Last Admin: 11/19/17 09:11 Dose: 650 mg Albuterol Sulfate (Ventolin 0.083% Nebulizer Soln -) 1 amp NEB Q1H PRN PRN Reason: SHORT OF BREATH/WHEEZING Sodium Chloride (1/2 Normal Saline) 1,000 mls @ 125 mls/hr IV ASDIR EZIO Last Admin: 11/19/17 09:12 Dose: 125 mls/hr Piperacillin Sod/Tazobactam (Sod 2.25 gm/ Dextrose) 50 mls @ 100 mls/hr IVPB Q8H-IV [facility]; Protocol Last Admin: 11/19/17 09:18 Dose: 100 mls/hr Insulin Aspart (Novolog Vial Sliding Scale -) 1 vial SQ ACHS [facility]; Protocol Last Admin: 11/19/17 11:37 Dose: 8 units Metoprolol Tartrate (Lopressor -) 25 mg PO BID [facility] Last Admin: 11/19/17 09:10 Dose: 25 mg - Objective Vital Signs: Vital Signs Temperature 97.9 F 11/19/17 08:08 Pulse Rate 90 11/19/17 08:08 Respiratory Rate 18 11/19/17 08:08 Blood Pressure 137/75 11/19/17 08:08 O2 Sat by Pulse Oximetry (%) 98 11/19/17 08:11 Neck: Yes: Supple Cardiovascular: Yes: Regular Rate and Rhythm, S1, S2 Respiratory: Yes: CTA Bilaterally Gastrointestinal: Yes: Normal Bowel Sounds, Soft. No: Tenderness Edema: No Labs: CBC, BMP 11/17/17 06:20 11/19/17 06:55 Problem List - Problems (1) Pedal edema Code(s): R60.0 - LOCALIZED EDEMA (2) Acute renal failure (ARF) Code(s): N17.9 - ACUTE KIDNEY FAILURE, UNSPECIFIED Qualifiers: Acute renal failure type: unspecified Qualified Code(s): N17.9 - Acute kidney failure, unspecified (3) Acute urinary retention Code(s): R33.8 - OTHER RETENTION OF URINE (4) Hyperkalemia Code(s): E87.5 - HYPERKALEMIA (5) HTN (hypertension) Code(s): I10 - ESSENTIAL (PRIMARY) HYPERTENSION Qualifiers: Hypertension type: essential hypertension Qualified Code(s): I10 - Essential (primary) hypertension Assessment/Plan 1. Sinus tachycardia and hypertension improved 2. BETH and hyperkalemia referable to obstructive uropathy with urinary retention and moderate bilateral hydronephrosis improving 3. Left pedal edema, etiology unclear 4. Left leg rash rule out vasculitis, cellulitis PLAN: 1. input to follow regarding fpc plan 2. Continue Lopressor 25 bid 3. Continue empiric antibiotics 4. Monitor electrolytes during post-obstructive diuresis including K level and renal function recovery 5. DVT prophylaxis Further plans are to follow Anuj Moreno MD
--- NOTE | 2017-11-19 12:17 | PN ---
Progress Note, Physician History of Present Illness: Pt seen and examined at bedside. She is awake and alert. She feels much better. She is ambulating without difficulty. Urine is clear. - Current Medication List Current Medications: Active Medications Acetaminophen (Tylenol -) 650 mg PO Q6H PRN PRN Reason: FEVER Last Admin: 11/19/17 09:11 Dose: 650 mg Albuterol Sulfate (Ventolin 0.083% Nebulizer Soln -) 1 amp NEB Q1H PRN PRN Reason: SHORT OF BREATH/WHEEZING Sodium Chloride (1/2 Normal Saline) 1,000 mls @ 125 mls/hr IV ASDIR EZIO Last Admin: 11/19/17 09:12 Dose: 125 mls/hr Piperacillin Sod/Tazobactam (Sod 2.25 gm/ Dextrose) 50 mls @ 100 mls/hr IVPB Q8H-IV [facility]; Protocol Last Admin: 11/19/17 09:18 Dose: 100 mls/hr Insulin Aspart (Novolog Vial Sliding Scale -) 1 vial SQ ACHS [facility]; Protocol Last Admin: 11/19/17 11:37 Dose: 8 units Metoprolol Tartrate (Lopressor -) 25 mg PO BID [facility] Last Admin: 11/19/17 09:10 Dose: 25 mg - Objective Vital Signs: Vital Signs Temperature 97.9 F 11/19/17 08:08 Pulse Rate 90 11/19/17 08:08 Respiratory Rate 18 11/19/17 08:08 Blood Pressure 137/75 11/19/17 08:08 O2 Sat by Pulse Oximetry (%) 98 11/19/17 08:11 Constitutional: Yes: Calm Eyes: Yes: Conjunctiva Clear HENT: Yes: Atraumatic Neck: Yes: Supple Cardiovascular: Yes: S1, S2 Respiratory: Yes: Regular Gastrointestinal: Yes: Normal Bowel Sounds, Soft Genitourinary: Yes: WNL Musculoskeletal: Yes: WNL Edema: No Neurological: Yes: Oriented Psychiatric: Yes: Oriented Labs: CBC, BMP 11/17/17 06:20 11/19/17 06:55 INR, PTT INR 1.19 (0.82-1.09) H 11/14/17 16:58 Problem List - Problems (1) Acute renal failure (ARF) Code(s): N17.9 - ACUTE KIDNEY FAILURE, UNSPECIFIED Qualifiers: Acute renal failure type: unspecified Qualified Code(s): N17.9 - Acute kidney failure, unspecified (2) Acute urinary retention Code(s): R33.8 - OTHER RETENTION OF URINE (3) HTN (hypertension) Code(s): I10 - ESSENTIAL (PRIMARY) HYPERTENSION Qualifiers: Hypertension type: essential hypertension Qualified Code(s): I10 - Essential (primary) hypertension (4) Hyperkalemia Code(s): E87.5 - HYPERKALEMIA Assessment/Plan Current Medications Generic Name Dose Route Start Last Admin Trade Name Freq PRN Reason Stop Dose Admin Acetaminophen 650 mg 11/18/17 14:34 11/19/17 09:11 Tylenol - PO 650 mg Q6H PRN Administration FEVER Albuterol Sulfate 1 amp 11/18/17 14:34 Ventolin 0.083% Nebulizer Soln - NEB Q1H PRN SHORT OF BREATH/WHEEZING Sodium Chloride 1,000 mls @ 125 mls/hr 11/18/17 14:34 11/19/17 09:12 1/2 Normal Saline IV 125 mls/hr ASDIR EZIO Administration Piperacillin Sod/Tazobactam 50 mls @ 100 mls/hr 11/18/17 18:00 11/19/17 09:18 Sod 2.25 gm/ Dextrose IVPB 100 mls/hr Q8H-IV [facility] Administration Protocol Insulin Aspart 1 vial 11/18/17 16:30 11/19/17 11:37 Novolog Vial Sliding Scale - SQ 8 units ACHS [facility] Administration Protocol Metoprolol Tartrate 25 mg 11/18/17 22:00 11/19/17 09:10 Lopressor - PO 25 mg BID [facility]IO Administration Laboratory Tests 11/16/17 11/16/17 11/16/17 06:15 06:15 06:15 LUIS M-Anil Not observed ALEENA Screen Negative c-ANCA <1:20 Proteinase 3 (PR3) <3.5 p-ANCA <1:20 Atypical p-ANCA <1:20 Myeloperoxidase Ab <9.0 Double Strand DNA Ab <1 Glomerular Base Memb Ab 3 Impression 1. BETH 2. hyperkalemia 3. urinary retention 4. constipation 5. left leg edema 6. rash 7. DM 8. hx of hep b exposure Plan - renal function continues to improve - BETH likely from obstruction - pt newly diagnosed diabetic - follow up biopsy from cysto - follow up skin biopsy - will decrease rate of fluid - will follow Dr Crowley
--- NOTE | 2017-11-19 12:42 | PN ---
Progress Note, Physician History of Present Illness: doing well no complaints walking - Current Medication List Current Medications: Active Medications Acetaminophen (Tylenol -) 650 mg PO Q6H PRN PRN Reason: FEVER Last Admin: 11/19/17 09:11 Dose: 650 mg Albuterol Sulfate (Ventolin 0.083% Nebulizer Soln -) 1 amp NEB Q1H PRN PRN Reason: SHORT OF BREATH/WHEEZING Piperacillin Sod/Tazobactam (Sod 2.25 gm/ Dextrose) 50 mls @ 100 mls/hr IVPB Q8H-IV [facility]; Protocol Last Admin: 11/19/17 09:18 Dose: 100 mls/hr Sodium Chloride (1/2 Normal Saline) 1,000 mls @ 100 mls/hr IV ASDIR [facility] Insulin Aspart (Novolog Vial Sliding Scale -) 1 vial SQ ACHS [facility]; Protocol Last Admin: 11/19/17 11:37 Dose: 8 units Metoprolol Tartrate (Lopressor -) 25 mg PO BID [facility] Last Admin: 11/19/17 09:10 Dose: 25 mg - Objective Vital Signs: Vital Signs Temperature 97.9 F 11/19/17 08:08 Pulse Rate 90 11/19/17 08:08 Respiratory Rate 18 11/19/17 08:08 Blood Pressure 137/75 11/19/17 08:08 O2 Sat by Pulse Oximetry (%) 98 11/19/17 08:11 Constitutional: Yes: No Distress, Calm Cardiovascular: Yes: Regular Rate and Rhythm Respiratory: Yes: Regular, CTA Bilaterally Gastrointestinal: Yes: Normal Bowel Sounds, Soft Musculoskeletal: Yes: WNL Extremities: Yes: Other Integumentary: Yes: Erythema (on the left leg has nearly resolved) Psychiatric: Yes: Alert, Oriented Labs: CBC, BMP 11/17/17 06:20 11/19/17 06:55 INR, PTT INR 1.19 (0.82-1.09) H 11/14/17 16:58 Assessment/Plan Problem List - Problems (1) Acute urinary retention Code(s): R33.8 - OTHER RETENTION OF URINE (2) HTN (hypertension) Code(s): I10 - ESSENTIAL (PRIMARY) HYPERTENSION Qualifiers: Hypertension type: essential hypertension Qualified Code(s): I10 - Essential (primary) hypertension (3) Hyperkalemia Code(s): E87.5 - HYPERKALEMIA (4) Pedal edema Code(s): R60.0 - LOCALIZED EDEMA (5) Acute bilateral obstructive uropathy Code(s): N13.9 - OBSTRUCTIVE AND REFLUX UROPATHY, UNSPECIFIED 6 cellulitis of the left leg plan continue abx for now will switch to oral abx from tomorrow await for biopsy results rest as per nephro
--- NOTE | 2017-11-19 18:27 | PN ---
Progress Note, Physician History of Present Illness: s/p cystoscopy and biopsy urine now clear in bag - Current Medication List Current Medications: Active Medications Acetaminophen (Tylenol -) 650 mg PO Q6H PRN PRN Reason: FEVER Last Admin: 11/19/17 09:11 Dose: 650 mg Albuterol Sulfate (Ventolin 0.083% Nebulizer Soln -) 1 amp NEB Q1H PRN PRN Reason: SHORT OF BREATH/WHEEZING Piperacillin Sod/Tazobactam (Sod 2.25 gm/ Dextrose) 50 mls @ 100 mls/hr IVPB Q8H-IV [facility]; Protocol Last Admin: 11/19/17 16:59 Dose: 100 mls/hr Sodium Chloride (1/2 Normal Saline) 1,000 mls @ 100 mls/hr IV ASDIR [facility] Last Admin: 11/19/17 16:54 Dose: 100 mls/hr Insulin Aspart (Novolog Vial Sliding Scale -) 1 vial SQ ACHS [facility]; Protocol Last Admin: 11/19/17 16:55 Dose: 4 units Metoprolol Tartrate (Lopressor -) 25 mg PO BID [facility] Last Admin: 11/19/17 09:10 Dose: 25 mg - Objective Vital Signs: Vital Signs Temperature 98.7 F 11/19/17 14:50 Pulse Rate 90 11/19/17 14:50 Respiratory Rate 18 11/19/17 14:50 Blood Pressure 140/82 11/19/17 14:50 O2 Sat by Pulse Oximetry (%) 98 11/19/17 08:11 Constitutional: Yes: No Distress HENT: Yes: Atraumatic Neck: Yes: Supple Cardiovascular: Yes: Regular Rate and Rhythm Respiratory: Yes: CTA Bilaterally Gastrointestinal: Yes: Normal Bowel Sounds Extremities: Yes: WNL Neurological: Yes: Alert, Oriented Labs: CBC, BMP 11/17/17 06:20 11/19/17 06:55 INR, PTT INR 1.19 (0.82-1.09) H 11/14/17 16:58 Problem List - Problems (1) Acute renal failure (ARF) Assessment/Plan: urine out puts are clear cr improving clinically much better Code(s): N17.9 - ACUTE KIDNEY FAILURE, UNSPECIFIED Qualifiers: Acute renal failure type: unspecified Qualified Code(s): N17.9 - Acute kidney failure, unspecified (2) Acute urinary retention Assessment/Plan: jackson in place Code(s): R33.8 - OTHER RETENTION OF URINE (3) HTN (hypertension) Assessment/Plan: on meds monitor Code(s): I10 - ESSENTIAL (PRIMARY) HYPERTENSION Qualifiers: Hypertension type: essential hypertension Qualified Code(s): I10 - Essential (primary) hypertension (4) Hyperkalemia Assessment/Plan: resolved Code(s): E87.5 - HYPERKALEMIA (5) Pedal edema Code(s): R60.0 - LOCALIZED EDEMA (6) Acute bilateral obstructive uropathy Code(s): N13.9 - OBSTRUCTIVE AND REFLUX UROPATHY, UNSPECIFIED (7) Rash and nonspecific skin eruption Assessment/Plan: derm consult..reviewed cellulitis start abx biopsy done by derm Code(s): R21 - RASH AND OTHER NONSPECIFIC SKIN ERUPTION
[2017-11-20] MEDS ORDERED: DEXTROSE 5%-WATER - 50 ML IVPB ONE (01:30)
[2017-11-20] MEDS ORDERED: PIPERACILLIN/TAZOBACTAM 2.25 GM VIAL IVPB ONE (01:30)
[2017-11-20] MEDS: PIPERACILLIN/TAZOB 2.25 GM 2.25 GM in DEXTROSE 5%-WATER - 50 ML IVPB SCH (02:25)
[2017-11-20] MEDS: ACETAMINOPHEN 325 MG TABLET (FP) PO PRN ×3 (04:13→21:46)
[2017-11-20] MEDS: SODIUM CHLORIDE 0.45% 1,000 ML IV SCH ×2 (04:20→14:23)
[2017-11-20] MEDS: INSULIN SLIDING SCALE (NOVOLOG) 1 VIAL SQ SCH ×4 (06:27→21:49)
[2017-11-20] MEDS ORDERED: INSULIN (NOVOLOG) ASPART 100 UNITS/ML 10ML VIAL ONE ×2 (06:32→21:49)
--- NOTE | 2017-11-20 08:49 | PN ---
Progress Note, Physician History of Present Illness: patient stable cellulitis has nearly resolved mentions thjat she has some numbness in the legs when she lies down for a long time - Current Medication List Current Medications: Active Medications Acetaminophen (Tylenol -) 650 mg PO Q6H PRN PRN Reason: FEVER Last Admin: 11/20/17 04:13 Dose: 650 mg Albuterol Sulfate (Ventolin 0.083% Nebulizer Soln -) 1 amp NEB Q1H PRN PRN Reason: SHORT OF BREATH/WHEEZING Sodium Chloride (1/2 Normal Saline) 1,000 mls @ 100 mls/hr IV ASDIR [facility] Last Admin: 11/20/17 04:20 Dose: 100 mls/hr Insulin Aspart (Novolog Vial Sliding Scale -) 1 vial SQ ACHS [facility]; Protocol Last Admin: 11/20/17 06:27 Dose: 2 units Metoprolol Tartrate (Lopressor -) 25 mg PO BID [facility] Last Admin: 11/19/17 21:25 Dose: 25 mg - Objective Vital Signs: Vital Signs Temperature 98.2 F 11/20/17 05:30 Pulse Rate 85 11/20/17 05:30 Respiratory Rate 16 11/20/17 05:30 Blood Pressure 125/73 11/20/17 05:30 O2 Sat by Pulse Oximetry (%) 95 11/19/17 21:00 Constitutional: Yes: No Distress, Calm Cardiovascular: Yes: Regular Rate and Rhythm Respiratory: Yes: Regular, CTA Bilaterally Gastrointestinal: Yes: Normal Bowel Sounds, Soft Genitourinary: Yes: Hyatt Present Musculoskeletal: Yes: WNL Extremities: Yes: WNL Neurological: Yes: Alert, Oriented Psychiatric: Yes: Alert, Oriented Labs: CBC, BMP 11/17/17 06:20 INR, PTT INR 1.19 (0.82-1.09) H 11/14/17 16:58 Assessment/Plan Problem List - Problems (1) Acute urinary retention Code(s): R33.8 - OTHER RETENTION OF URINE (2) HTN (hypertension) Code(s): I10 - ESSENTIAL (PRIMARY) HYPERTENSION Qualifiers: Hypertension type: essential hypertension Qualified Code(s): I10 - Essential (primary) hypertension (3) Hyperkalemia Code(s): E87.5 - HYPERKALEMIA (4) Pedal edema Code(s): R60.0 - LOCALIZED EDEMA (5) Acute bilateral obstructive uropathy Code(s): N13.9 - OBSTRUCTIVE AND REFLUX UROPATHY, UNSPECIFIED 6 cellulitis of the left leg plan will stop iv abx will switch to oral abx rest continue current mgmt and as per nephro d/w pharmacy about the dosing of the abx
[2017-11-20 09:09] LABS: ANION GAP 9 (8-16); BLOOD UREA NITROGEN 28 mg/dL (7-18); CALCIUM 8.3 mg/dL (8.5-10.1); CHLORIDE 107 mmol/L (98-107); CO2 25 mmol/L (21-32); GLUCOSE,RANDOM 83 mg/dL (74-106); MAGNESIUM 1.3 mg/dL (1.8-2.4); SODIUM 141 mmol/L (136-145)
[2017-11-20 09:11] LABS: CREATININE 1.9 mg/dL (0.55-1.02)
[2017-11-20] MEDS: METOPROLOL TARTRATE 25 MG TABLET (FP) PO SCH ×2 (09:30→21:46)
--- NOTE | 2017-11-20 10:20 | PN ---
Progress Note, Physician Chief Complaint: Events noted Feel better History of Present Illness: Patient was seen and examined. Awake and alert. Chart was reviewed Hyatt catheter in place and s/p cystoscopy Denies chest pain, SOB or palpitations - Current Medication List Current Medications: Active Medications Acetaminophen (Tylenol -) 650 mg PO Q6H PRN PRN Reason: FEVER Last Admin: 11/20/17 04:13 Dose: 650 mg Albuterol Sulfate (Ventolin 0.083% Nebulizer Soln -) 1 amp NEB Q1H PRN PRN Reason: SHORT OF BREATH/WHEEZING Sodium Chloride (1/2 Normal Saline) 1,000 mls @ 100 mls/hr IV ASDIR [facility] Last Admin: 11/20/17 04:20 Dose: 100 mls/hr Insulin Aspart (Novolog Vial Sliding Scale -) 1 vial SQ ACHS [facility]; Protocol Last Admin: 11/20/17 06:27 Dose: 2 units Metoprolol Tartrate (Lopressor -) 25 mg PO BID [facility] Last Admin: 11/20/17 09:30 Dose: 25 mg - Objective Vital Signs: Vital Signs Temperature 98.2 F 11/20/17 05:30 Pulse Rate 85 11/20/17 05:30 Respiratory Rate 16 11/20/17 05:30 Blood Pressure 125/73 11/20/17 05:30 O2 Sat by Pulse Oximetry (%) 95 11/19/17 21:00 Eyes: Yes: PERRL HENT: Yes: Atraumatic Neck: Yes: Supple Cardiovascular: Yes: Regular Rate and Rhythm, S1, S2 Respiratory: Yes: CTA Bilaterally Gastrointestinal: Yes: Normal Bowel Sounds, Soft. No: Tenderness Edema: No Labs: 11/20/17 07:50 Problem List - Problems (1) Pedal edema Code(s): R60.0 - LOCALIZED EDEMA (2) Acute renal failure (ARF) Code(s): N17.9 - ACUTE KIDNEY FAILURE, UNSPECIFIED Qualifiers: Acute renal failure type: unspecified Qualified Code(s): N17.9 - Acute kidney failure, unspecified (3) Acute urinary retention Code(s): R33.8 - OTHER RETENTION OF URINE (4) Hyperkalemia Code(s): E87.5 - HYPERKALEMIA (5) HTN (hypertension) Code(s): I10 - ESSENTIAL (PRIMARY) HYPERTENSION Qualifiers: Hypertension type: essential hypertension Qualified Code(s): I10 - Essential (primary) hypertension Assessment/Plan 1. Sinus tachycardia and hypertension improved 2. BETH and hyperkalemia referable to obstructive uropathy with urinary retention and moderate bilateral hydronephrosis improving 3. Left pedal edema, etiology unclear 4. Left leg rash rule out vasculitis, cellulitis PLAN: 1. 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 Continue Lopressor 3. Continue empiric antibiotics 4. Monitor electrolytes 5. DVT prophylaxis Further plans are to follow Anuj Moreno MD
--- NOTE | 2017-11-20 13:59 | PN ---
Progress Note, Physician History of Present Illness: Pt seen and examined at bedside. She is awake and alert. She denies shortness of breath. - Current Medication List Current Medications: Active Medications Acetaminophen (Tylenol -) 650 mg PO Q6H PRN PRN Reason: FEVER Last Admin: 11/20/17 12:21 Dose: 650 mg Albuterol Sulfate (Ventolin 0.083% Nebulizer Soln -) 1 amp NEB Q1H PRN PRN Reason: SHORT OF BREATH/WHEEZING Sodium Chloride (1/2 Normal Saline) 1,000 mls @ 100 mls/hr IV ASDIR [facility] Last Admin: 11/20/17 04:20 Dose: 100 mls/hr Insulin Aspart (Novolog Vial Sliding Scale -) 1 vial SQ ACHS [facility]; Protocol Last Admin: 11/20/17 11:25 Dose: 4 units Metoprolol Tartrate (Lopressor -) 25 mg PO BID [facility] Last Admin: 11/20/17 09:30 Dose: 25 mg - Objective Vital Signs: Vital Signs Temperature 98.2 F 11/20/17 05:30 Pulse Rate 85 11/20/17 05:30 Respiratory Rate 16 11/20/17 05:30 Blood Pressure 125/73 11/20/17 05:30 O2 Sat by Pulse Oximetry (%) 95 11/19/17 21:00 Constitutional: Yes: Calm Eyes: Yes: Conjunctiva Clear HENT: Yes: Atraumatic Neck: Yes: Supple Cardiovascular: Yes: S1, S2 Respiratory: Yes: CTA Bilaterally Gastrointestinal: Yes: Normal Bowel Sounds, Soft Genitourinary: Yes: Jackson Present Extremities: Yes: WNL Edema: No Neurological: Yes: Oriented Psychiatric: Yes: Oriented Labs: CBC, BMP 11/17/17 06:20 11/20/17 07:50 INR, PTT INR 1.19 (0.82-1.09) H 11/14/17 16:58 Problem List - Problems (1) Acute renal failure (ARF) Code(s): N17.9 - ACUTE KIDNEY FAILURE, UNSPECIFIED Qualifiers: Acute renal failure type: unspecified Qualified Code(s): N17.9 - Acute kidney failure, unspecified (2) Acute urinary retention Code(s): R33.8 - OTHER RETENTION OF URINE (3) HTN (hypertension) Code(s): I10 - ESSENTIAL (PRIMARY) HYPERTENSION Qualifiers: Hypertension type: essential hypertension Qualified Code(s): I10 - Essential (primary) hypertension (4) Hyperkalemia Code(s): E87.5 - HYPERKALEMIA Assessment/Plan Current Medications Generic Name Dose Route Start Last Admin Trade Name Freq PRN Reason Stop Dose Admin Acetaminophen 650 mg 11/18/17 14:34 11/20/17 12:21 Tylenol - PO 650 mg Q6H PRN Administration FEVER Albuterol Sulfate 1 amp 11/18/17 14:34 Ventolin 0.083% Nebulizer Soln - NEB Q1H PRN SHORT OF BREATH/WHEEZING Sodium Chloride 1,000 mls @ 100 mls/hr 11/19/17 12:17 11/20/17 04:20 1/2 Normal Saline IV 100 mls/hr ASDIR [facility] Administration Insulin Aspart 1 vial 11/18/17 16:30 11/20/17 11:25 Novolog Vial Sliding Scale - SQ 4 units ACHS [facility] Administration Protocol Metoprolol Tartrate 25 mg 11/18/17 22:00 11/20/17 09:30 Lopressor - PO 25 mg BID [facility] Administration Impression 1. BETH 2. hyperkalemia 3. urinary retention 4. constipation 5. left leg edema 6. rash 7. DM 8. hx of hep b exposure Plan - renal function is improving - decrease fluids to 75 cc - repeat labs in am - urology follow up for plan for jackson catheter - follow up biopsy from cysto - follow up skin biopsy - will follow Dr Crowley
--- NOTE | 2017-11-20 18:54 | PN ---
Progress Note, Physician History of Present Illness: doing well - Current Medication List Current Medications: Active Medications Acetaminophen (Tylenol -) 650 mg PO Q6H PRN PRN Reason: FEVER Last Admin: 11/20/17 12:21 Dose: 650 mg Albuterol Sulfate (Ventolin 0.083% Nebulizer Soln -) 1 amp NEB Q1H PRN PRN Reason: SHORT OF BREATH/WHEEZING Sodium Chloride (1/2 Normal Saline) 1,000 mls @ 75 mls/hr IV ASDIR [facility] Last Admin: 11/20/17 14:23 Dose: 75 mls/hr Insulin Aspart (Novolog Vial Sliding Scale -) 1 vial SQ ACHS [facility]; Protocol Last Admin: 11/20/17 17:17 Dose: 2 units Metoprolol Tartrate (Lopressor -) 25 mg PO BID [facility] Last Admin: 11/20/17 09:30 Dose: 25 mg - Objective Vital Signs: Vital Signs Temperature 98.2 F 11/20/17 14:13 Pulse Rate 90 11/20/17 14:13 Respiratory Rate 20 11/20/17 14:13 Blood Pressure 140/89 11/20/17 14:13 O2 Sat by Pulse Oximetry (%) 95 11/19/17 21:00 Constitutional: Yes: No Distress HENT: Yes: Atraumatic Neck: Yes: Supple Cardiovascular: Yes: Regular Rate and Rhythm Respiratory: Yes: CTA Bilaterally Gastrointestinal: Yes: Normal Bowel Sounds Extremities: Yes: WNL Neurological: Yes: Alert, Oriented Labs: CBC, BMP 11/17/17 06:20 11/20/17 07:50 INR, PTT INR 1.19 (0.82-1.09) H 11/14/17 16:58 Problem List - Problems (1) Acute renal failure (ARF) Assessment/Plan: urine out puts are clear cr improving clinically much better awaiting urology input dc jackson?? Code(s): N17.9 - ACUTE KIDNEY FAILURE, UNSPECIFIED Qualifiers: Acute renal failure type: unspecified Qualified Code(s): N17.9 - Acute kidney failure, unspecified (2) Acute urinary retention Assessment/Plan: jackson in place Code(s): R33.8 - OTHER RETENTION OF URINE (3) HTN (hypertension) Assessment/Plan: on meds monitor Code(s): I10 - ESSENTIAL (PRIMARY) HYPERTENSION Qualifiers: Hypertension type: essential hypertension Qualified Code(s): I10 - Essential (primary) hypertension (4) Hyperkalemia Assessment/Plan: resolved Code(s): E87.5 - HYPERKALEMIA (5) Pedal edema Code(s): R60.0 - LOCALIZED EDEMA (6) Acute bilateral obstructive uropathy Code(s): N13.9 - OBSTRUCTIVE AND REFLUX UROPATHY, UNSPECIFIED (7) Rash and nonspecific skin eruption Assessment/Plan: derm consult..reviewed cellulitis start abx biopsy done by derm Code(s): R21 - RASH AND OTHER NONSPECIFIC SKIN ERUPTION
[2017-11-21] MEDS: SODIUM CHLORIDE 0.45% 1,000 ML IV SCH (05:44)
[2017-11-21] MEDS: ACETAMINOPHEN 325 MG TABLET (FP) PO PRN ×3 (06:28→22:18)
[2017-11-21] MEDS: INSULIN SLIDING SCALE (NOVOLOG) 1 VIAL SQ SCH ×4 (06:28→22:19)
--- NOTE | 2017-11-21 07:06 | PN ---
Progress Note (short form) - Note Progress Note: urine clear creat 1.9 yesterday d/c jackson for voiding trial
[2017-11-21 08:15] LABS: BASO % 0.5 % (0-2.0); EOS % 3.5 % (0-4.5); HEMATOCRIT 26.4 % (32.4-45.2); HEMOGLOBIN 9.1 GM/dL (10.7-15.3); LYMPH % 30.8 % (8-40); MCHC 34.5 g/dl (32.0-36.0); MEAN CELL VOLUME 86.8 fl (80-96); MEAN PLT VOLUME 7.9 fl (7.5-11.1); MONO % 7.9 % (3.8-10.2); NEUT % 57.3 % (42.8-82.8); PLATELET COUNT 379 K/MM3 (134-434); RBC 3.04 M/mm3 (3.60-5.2); RDW 12.3 % (11.6-15.6); WHITE BLOOD COUNT 7.8 K/mm3 (4.0-10.0)
[2017-11-21 08:45] LABS: ANION GAP 9 (8-16); BLOOD UREA NITROGEN 24 mg/dL (7-18); BLOOD UREA NITROGEN 25 mg/dL (7-18); CALCIUM 7.9 mg/dL (8.5-10.1); CALCIUM 8.2 mg/dL (8.5-10.1); CHLORIDE 106 mmol/L (98-107); CHLORIDE 108 mmol/L (98-107); CO2 25 mmol/L (21-32); CO2 26 mmol/L (21-32); CREATININE 1.7 mg/dL (0.55-1.02); GLUCOSE,RANDOM 94 mg/dL (74-106); GLUCOSE,RANDOM 98 mg/dL (74-106); POTASSIUM 4.1 mmol/L (3.5-5.1); SODIUM 141 mmol/L (136-145); SODIUM 142 mmol/L (136-145)
[2017-11-21 08:48] LABS: ALK PHOS 206 U/L (45-117); BILIRUBIN,TOTAL 0.3 mg/dL (0.2-1.0); CREATININE 1.7 mg/dL (0.55-1.02); SGOT/AST 30 U/L (15-37); SGPT/ALT 35 U/L (12-78); TOT PROT 6.8 g/dl (6.4-8.2)
[2017-11-21] MEDS: METOPROLOL TARTRATE 25 MG TABLET (FP) PO SCH ×2 (10:16→22:21)
[2017-11-21] MEDS ORDERED: SODIUM CHLORIDE 0.45% 1,000 ML IV SCH (11:35)
--- NOTE | 2017-11-21 11:35 | PN ---
Progress Note, Physician History of Present Illness: Pt seen and examined at bedside. She is awake and alert. She is on a voiding trial. - Current Medication List Current Medications: Active Medications Acetaminophen (Tylenol -) 650 mg PO Q6H PRN PRN Reason: FEVER Last Admin: 11/21/17 06:28 Dose: 650 mg Albuterol Sulfate (Ventolin 0.083% Nebulizer Soln -) 1 amp NEB Q1H PRN PRN Reason: SHORT OF BREATH/WHEEZING Sodium Chloride (1/2 Normal Saline) 1,000 mls @ 75 mls/hr IV ASDIR [facility] Last Admin: 11/21/17 05:44 Dose: 75 mls/hr Insulin Aspart (Novolog Vial Sliding Scale -) 1 vial SQ ACHS [facility]; Protocol Last Admin: 11/21/17 06:28 Dose: 2 units Metoprolol Tartrate (Lopressor -) 25 mg PO BID [facility] Last Admin: 11/21/17 10:16 Dose: 25 mg - Objective Vital Signs: Vital Signs Temperature 98.9 F 11/21/17 08:15 Pulse Rate 89 11/21/17 08:15 Respiratory Rate 20 11/21/17 08:15 Blood Pressure 136/80 11/21/17 08:15 O2 Sat by Pulse Oximetry (%) 98 11/20/17 21:00 Constitutional: Yes: Calm Eyes: Yes: Conjunctiva Clear HENT: Yes: Atraumatic Neck: Yes: Supple Cardiovascular: Yes: S1, S2 Respiratory: Yes: CTA Bilaterally Gastrointestinal: Yes: Normal Bowel Sounds, Soft, Abdomen, Obese Genitourinary: Yes: WNL Musculoskeletal: Yes: WNL Edema: No Neurological: Yes: Oriented Psychiatric: Yes: Oriented Labs: CBC, BMP 11/21/17 06:20 11/21/17 06:20 INR, PTT INR 1.19 (0.82-1.09) H 11/14/17 16:58 Problem List - Problems (1) Acute renal failure (ARF) Code(s): N17.9 - ACUTE KIDNEY FAILURE, UNSPECIFIED Qualifiers: Acute renal failure type: unspecified Qualified Code(s): N17.9 - Acute kidney failure, unspecified (2) Acute urinary retention Code(s): R33.8 - OTHER RETENTION OF URINE (3) HTN (hypertension) Code(s): I10 - ESSENTIAL (PRIMARY) HYPERTENSION Qualifiers: Hypertension type: essential hypertension Qualified Code(s): I10 - Essential (primary) hypertension (4) Hyperkalemia Code(s): E87.5 - HYPERKALEMIA Assessment/Plan Current Medications Generic Name Dose Route Start Last Admin Trade Name Freq PRN Reason Stop Dose Admin Acetaminophen 650 mg 11/18/17 14:34 11/21/17 06:28 Tylenol - PO 650 mg Q6H PRN Administration FEVER Albuterol Sulfate 1 amp 11/18/17 14:34 Ventolin 0.083% Nebulizer Soln - NEB Q1H PRN SHORT OF BREATH/WHEEZING Sodium Chloride 1,000 mls @ 75 mls/hr 11/20/17 13:59 11/21/17 05:44 1/2 Normal Saline IV 75 mls/hr ASDIR [facility] Administration Insulin Aspart 1 vial 11/18/17 16:30 11/21/17 06:28 Novolog Vial Sliding Scale - SQ 2 units ACHS [facility] Administration Protocol Metoprolol Tartrate 25 mg 11/18/17 22:00 11/21/17 10:16 Lopressor - PO 25 mg BID [facility] Administration Impression 1. BETH 2. hyperkalemia 3. urinary retention 4. constipation 5. left leg edema 6. rash 7. DM 8. hx of hep b exposure Plan - renal function is stabilizing - pt getting a voiding trial - urology input appreciated - follow up biopsy from cysto - follow up skin biopsy - will follow Dr Crowley
[2017-11-21] MEDS ORDERED: INSULIN (NOVOLOG) ASPART 100 UNITS/ML 10ML VIAL ONE (11:59)
--- NOTE | 2017-11-21 12:05 | PN ---
Progress Note, Physician History of Present Illness: Urine clear, jackson d/alejandro and undergoing voiding trial. - Current Medication List Current Medications: Active Medications Acetaminophen (Tylenol -) 650 mg PO Q6H PRN PRN Reason: FEVER Last Admin: 11/21/17 06:28 Dose: 650 mg Albuterol Sulfate (Ventolin 0.083% Nebulizer Soln -) 1 amp NEB Q1H PRN PRN Reason: SHORT OF BREATH/WHEEZING Sodium Chloride (1/2 Normal Saline) 1,000 mls @ 55 mls/hr IV [facility]IR [facility] Insulin Aspart (Novolog Vial Sliding Scale -) 1 vial SQ ACHS [facility]; Protocol Last Admin: 11/21/17 06:28 Dose: 2 units Metoprolol Tartrate (Lopressor -) 25 mg PO BID [facility] Last Admin: 11/21/17 10:16 Dose: 25 mg - Objective Vital Signs: Vital Signs Temperature 98.9 F 11/21/17 08:15 Pulse Rate 89 11/21/17 08:15 Respiratory Rate 20 11/21/17 08:15 Blood Pressure 136/80 11/21/17 08:15 O2 Sat by Pulse Oximetry (%) 98 11/20/17 21:00 Constitutional: Yes: No Distress, Calm Neck: Yes: Supple Cardiovascular: Yes: Regular Rate and Rhythm Respiratory: Yes: Regular, CTA Bilaterally Gastrointestinal: Yes: Normal Bowel Sounds, Soft, Abdomen, Obese Edema: No Labs: CBC, BMP 11/21/17 06:20 11/21/17 06:20 INR, PTT INR 1.19 (0.82-1.09) H 11/14/17 16:58 Problem List - Problems (1) Acute urinary retention Code(s): R33.8 - OTHER RETENTION OF URINE (2) HTN (hypertension) Code(s): I10 - ESSENTIAL (PRIMARY) HYPERTENSION Qualifiers: Hypertension type: essential hypertension Qualified Code(s): I10 - Essential (primary) hypertension (3) Hyperkalemia Code(s): E87.5 - HYPERKALEMIA (4) Pedal edema Code(s): R60.0 - LOCALIZED EDEMA (5) Acute bilateral obstructive uropathy Code(s): N13.9 - OBSTRUCTIVE AND REFLUX UROPATHY, UNSPECIFIED Assessment/Plan Transthoracic echocardiography to assess LV/RV and valvular function 1. Sinus tachycardia and hypertension improved 2. Acute on CKD and hyperkalemia referable to obstructive uropathy with urinary retention and moderate bilateral hydronephrosis improving 3. Left pedal edema, etiology unclear 4. Left leg rash rule out vasculitis, cellulitis PLAN: 1. Undergoing voiding trial 2. Continue Lopressor 25 bid 3. Continue empiric antibiotics course 4. Monitor electrolytes, f/u bladder and skin biopsies 5. DVT prophylaxis
--- NOTE | 2017-11-21 12:18 | PN ---
Progress Note, Physician History of Present Illness: patient doing well no complaints passed urine getting a trial of voiding leg looks good - Current Medication List Current Medications: Active Medications Acetaminophen (Tylenol -) 650 mg PO Q6H PRN PRN Reason: FEVER Last Admin: 11/21/17 06:28 Dose: 650 mg Albuterol Sulfate (Ventolin 0.083% Nebulizer Soln -) 1 amp NEB Q1H PRN PRN Reason: SHORT OF BREATH/WHEEZING Sodium Chloride (1/2 Normal Saline) 1,000 mls @ 55 mls/hr IV ASDIR [facility] Last Admin: 11/21/17 12:07 Dose: 55 mls/hr Insulin Aspart (Novolog Vial Sliding Scale -) 1 vial SQ ACHS [facility]; Protocol Last Admin: 11/21/17 12:04 Dose: 4 units Metoprolol Tartrate (Lopressor -) 25 mg PO BID [facility] Last Admin: 11/21/17 10:16 Dose: 25 mg - Objective Vital Signs: Vital Signs Temperature 98.9 F 11/21/17 08:15 Pulse Rate 89 11/21/17 08:15 Respiratory Rate 20 11/21/17 08:15 Blood Pressure 136/80 11/21/17 08:15 O2 Sat by Pulse Oximetry (%) 98 11/20/17 21:00 Constitutional: Yes: No Distress, Calm Cardiovascular: Yes: Regular Rate and Rhythm Respiratory: Yes: Regular, CTA Bilaterally Gastrointestinal: Yes: Normal Bowel Sounds, Soft Musculoskeletal: Yes: WNL Extremities: Yes: WNL Neurological: Yes: Alert, Oriented Psychiatric: Yes: Alert, Oriented Labs: CBC, BMP 11/21/17 06:20 11/21/17 06:20 INR, PTT INR 1.19 (0.82-1.09) H 11/14/17 16:58 Assessment/Plan Problem List - Problems (1) Acute urinary retention Code(s): R33.8 - OTHER RETENTION OF URINE (2) HTN (hypertension) Code(s): I10 - ESSENTIAL (PRIMARY) HYPERTENSION Qualifiers: Hypertension type: essential hypertension Qualified Code(s): I10 - Essential (primary) hypertension (3) Hyperkalemia Code(s): E87.5 - HYPERKALEMIA (4) Pedal edema Code(s): R60.0 - LOCALIZED EDEMA (5) Acute bilateral obstructive uropathy Code(s): N13.9 - OBSTRUCTIVE AND REFLUX UROPATHY, UNSPECIFIED 6 cellulitis of the left leg plan continue current mgmt stop abx today rest continue current mgmt patient stable watch for urinary issues
[2017-11-21] MEDS: TAMSULOSIN HCL 0.4 MG CAP.ER.24H (FP) PO SCH (14:31)
[2017-11-21] MEDS: BETHANECHOL CHLORIDE 25 MG TABLET PO SCH ×2 (15:48→22:18)
[2017-11-21] MEDS: AMOX TR/POT CLAV 500MG/125MG TABLETS (FP) PO SCH (17:18)
--- NOTE | 2017-11-21 18:22 | PATH ---
Surgical Pathology Report Patient Name: CHAITANYA YOO Med. Rec. #: [id number] /Age/Gender: 1960 (Age: 57) / F Account: [id number] Location: [address] [place] [address]/[facility] Taken: 11/17/2017 Received: 11/17/2017 Reported: 11/21/2017 Physicians: Zoila Hart M.D. Specimen(s) Received SKIN BIOPSY LEFT LEG Clinical History Leg pustules and macules, L leg Postoperative diagnosis: Rule out vasculitis Final Diagnosis SKIN, LEG, LEFT, SHAVE BIOPSY: INTRAEPIDERMAL SPONGIOSIS, ACUTE INFLAMMATION, AND ASSOCIATED ULCERATION. DERMAL EDEMA, NEUTROPHILIC INFILTRATION OF BLOOD VESSELS, LEUKOCYTOCLASIS, AND FIBRINOID NECROSIS, CONSISTENT WITH LEUKOCYTOCLASTIC VASCULITIS WITH SECONDARY ULCERATION. FUNGUS AND ACID FAST BACILLI (PAS AND AFB) SPECIAL STAINS ARE NEGATIVE. Comment: Possible etiologies include infection, drugs, malignancy, and systemic disease. Suggest clinical and immunofluorescence studies correlation. Electronically Signed Luana Kaur M.D. Gross Description Received in formalin, labeled with the patient's name and indicated on the requisition to be a skin biopsy from the left leg, is a 0.7 x 0.5 cm unoriented, farah skin shave. The base is inked green and the specimen is bisected and entirely submitted in one cassette. /11/17/2017 saudi/11/17/2017
--- NOTE | 2017-11-21 19:44 | PN ---
Progress Note, Physician History of Present Illness: doing well - Current Medication List Current Medications: Active Medications Acetaminophen (Tylenol -) 650 mg PO Q6H PRN PRN Reason: FEVER Last Admin: 11/21/17 13:52 Dose: 650 mg Albuterol Sulfate (Ventolin 0.083% Nebulizer Soln -) 1 amp NEB Q1H PRN PRN Reason: SHORT OF BREATH/WHEEZING Amoxicillin/Clavulanate Potassium (Augmentin - 500mg Tablet) 1 tab PO BID@0800, 1730 [facility] Last Admin: 11/21/17 17:18 Dose: 1 tab Bethanechol Chloride (Urecholine -) 50 mg PO TID [facility] Last Admin: 11/21/17 15:48 Dose: 50 mg Glimepiride (Amaryl -) 2 mg PO DAILY@0700 [facility] Sodium Chloride (1/2 Normal Saline) 1,000 mls @ 55 mls/hr IV ASDIR [facility] Last Admin: 11/21/17 12:07 Dose: 55 mls/hr Insulin Aspart (Novolog Vial Sliding Scale -) 1 vial SQ ACHS [facility]; Protocol Last Admin: 11/21/17 17:18 Dose: 4 units Metoprolol Tartrate (Lopressor -) 25 mg PO BID [facility] Last Admin: 11/21/17 10:16 Dose: 25 mg Sitagliptin Phosphate (Januvia -) 50 mg PO DAILY@0700 [facility] Tamsulosin HCl (Flomax -) 0.4 mg PO DAILY@0830 [facility] Last Admin: 11/21/17 14:31 Dose: 0.4 mg - Objective Vital Signs: Vital Signs Temperature 99 F 11/21/17 16:00 Pulse Rate 929 H 11/21/17 16:00 Respiratory Rate 20 11/21/17 16:00 Blood Pressure 125/83 11/21/17 16:00 O2 Sat by Pulse Oximetry (%) 99 11/21/17 09:00 Constitutional: Yes: No Distress HENT: Yes: Atraumatic Neck: Yes: Supple Cardiovascular: Yes: Regular Rate and Rhythm Respiratory: Yes: CTA Bilaterally Gastrointestinal: Yes: Normal Bowel Sounds Extremities: Yes: WNL Edema: LLE: Trace, RLE: Trace Neurological: Yes: Alert, Oriented Labs: CBC, BMP 11/21/17 06:20 11/21/17 06:20 INR, PTT INR 1.19 (0.82-1.09) H 11/14/17 16:58 Problem List - Problems (1) Acute renal failure (ARF) Assessment/Plan: jackson dc today trial of voiding failed so jackson was put back in on flomax and urocholine Code(s): N17.9 - ACUTE KIDNEY FAILURE, UNSPECIFIED Qualifiers: Acute renal failure type: unspecified Qualified Code(s): N17.9 - Acute kidney failure, unspecified (2) Acute urinary retention Assessment/Plan: jackson dc Code(s): R33.8 - OTHER RETENTION OF URINE (3) HTN (hypertension) Assessment/Plan: on meds monitor Code(s): I10 - ESSENTIAL (PRIMARY) HYPERTENSION Qualifiers: Hypertension type: essential hypertension Qualified Code(s): I10 - Essential (primary) hypertension (4) Hyperkalemia Assessment/Plan: resolved Code(s): E87.5 - HYPERKALEMIA (5) Pedal edema Code(s): R60.0 - LOCALIZED EDEMA (6) Acute bilateral obstructive uropathy Code(s): N13.9 - OBSTRUCTIVE AND REFLUX UROPATHY, UNSPECIFIED (7) Rash and nonspecific skin eruption Assessment/Plan: derm consult..reviewed cellulitis start abx biopsy done by derm Code(s): R21 - RASH AND OTHER NONSPECIFIC SKIN ERUPTION
--- NOTE | 2017-11-21 19:47 | CONSULT ---
Consult Consult Specialty:: endocrine Referred by:: Reason for Consultation:: diabetes mellitus ckd - History of Present Illness Chief Complaint: high sugars History of Present Illness: 57-year-old female, denies any significant past medical history, post menopausal , here with left leg pain and swelling. Patient reports that she was in her usual state of health up until several weeks ago when she initially developed constipationand abdominal discomfort has ? history of dm,non compliant with follow up,and meds,has elevated blood sugars and hb a1c 14% - History Source History Provided By: Patient - Past Medical History ...LMP Comment: OVER 1 YEAR AGO ...: No - Alcohol/Substance Use Hx Alcohol Use: No History of Substance Use: reports: None - Smoking History Smoking history: Never smoked Have you smoked in the past 12 months: No Home Medications - Allergies Allergies/Adverse Reactions: Allergies Allergy/AdvReac Type Severity Reaction Status Date / Time No Known Allergies Allergy Verified 11/14/17 15:16 - Home Medications Home Medications: Ambulatory Orders NK [No Known Home Medication] 11/14/17 Family Disease History - Family Disease History Family Disease History: CA: Mother (breast CA) Review of Systems - Review of Systems Constitutional: reports: Lethargy Eyes: reports: No Symptoms HENT: reports: No Symptoms Neck: reports: No Symptoms Cardiovascular: reports: No Symptoms Respiratory: reports: No Symptoms Gastrointestinal: reports: Bloating, Constipation Genitourinary: reports: Frequency Breasts: reports: No Symptoms Reported Musculoskeletal: reports: No Symptoms Integumentary: reports: No Symptoms Neurological: reports: No Symptoms Physical Exam Vital Signs: Vital Signs Temperature 99 F 11/21/17 16:00 Pulse Rate 929 H 11/21/17 16:00 Respiratory Rate 20 11/21/17 16:00 Blood Pressure 125/83 11/21/17 16:00 O2 Sat by Pulse Oximetry (%) 99 11/21/17 09:00 Constitutional: Yes: Calm Eyes: Yes: EOM Intact HENT: Yes: Normocephalic Neck: Yes: Trachea Midline Cardiovascular: Yes: Regular Rate and Rhythm Respiratory: Yes: CTA Bilaterally Gastrointestinal: Yes: Normal Bowel Sounds ...Rectal Exam: Yes: Deferred Renal/: Yes: WNL Musculoskeletal: Yes: WNL Neurological: Yes: Alert, Oriented Labs: CBC, BMP 11/21/17 06:20 11/21/17 06:20 Problem List - Problems (1) Diabetes mellitus with hyperosmolarity Code(s): E11.00 - TYPE 2 DIAB W HYPROSM W/O NONKET HYPRGLY-HYPROS COMA ([facility]) (2) Hyperkalemia Code(s): E87.5 - HYPERKALEMIA Assessment/Plan Current Active Problems Acute bilateral obstructive uropathy (Acute) Acute renal failure (ARF) (Acute) Acute urinary retention (Acute) HTN (hypertension) (Acute) Hyperkalemia (Acute) Pedal edema (Acute) Rash and nonspecific skin eruption (Acute) diabetes mellitus/nephropathy Abnormal Lab Results 11/21/17 11/21/17 11/21/17 06:20 06:20 06:20 RBC 3.04 L Hgb 9.1 L Hct 26.4 L Chloride 108 H BUN 25 H 24 H Creatinine 1.7 H 1.7 H Calcium 8.2 L 7.9 L Alkaline Phosphatase 206 H D Albumin 3.0 L Laboratory Results - last 24 hr 11/18/17 11/20/17 11/21/17 15:00 21:45 05:58 WBC RBC Hgb Hct MCV MCH MCHC RDW Plt Count MPV Absolute Neuts (auto) Neutrophils % Lymphocytes % Monocytes % Eosinophils % Basophils % Nucleated RBC % Sodium Potassium Chloride Carbon Dioxide Anion Gap BUN Creatinine Creat Clearance w eGFR POC Glucometer 87 158 101 Random Glucose Calcium Total Bilirubin AST ALT Alkaline Phosphatase Total Protein Albumin 11/21/17 11/21/17 11/21/17 06:20 06:20 06:20 WBC 7.8 RBC 3.04 L Hgb 9.1 L Hct 26.4 L MCV 86.8 MCH 30.0 MCHC 34.5 RDW 12.3 Plt Count 379 D MPV 7.9 Absolute Neuts (auto) 4.4 Neutrophils % 57.3 D Lymphocytes % 30.8 D Monocytes % 7.9 Eosinophils % 3.5 D Basophils % 0.5 Nucleated RBC % 0 Sodium 141 142 Potassium 4.1 4.0 Chloride 106 108 H Carbon Dioxide 26 25 Anion Gap 9 9 BUN 25 H 24 H Creatinine 1.7 H 1.7 H Creat Clearance w eGFR 31.20 31.20 POC Glucometer Random Glucose 98 94 Calcium 8.2 L 7.9 L Total Bilirubin 0.3 AST 30 ALT 35 Alkaline Phosphatase 206 H D Total Protein 6.8 Albumin 3.0 L 11/21/17 11/21/17 11:33 17:09 WBC RBC Hgb Hct MCV MCH MCHC RDW Plt Count MPV Absolute Neuts (auto) Neutrophils % Lymphocytes % Monocytes % Eosinophils % Basophils % Nucleated RBC % Sodium Potassium Chloride Carbon Dioxide Anion Gap BUN Creatinine Creat Clearance w eGFR POC Glucometer 189 159 Random Glucose Calcium Total Bilirubin AST ALT Alkaline Phosphatase Total Protein Albumin plan: bgm qid novolog insulin \start glimiperide 2mg daily januvia 50mg daily diet nutrition follow up as outpatient
[2017-11-22] MEDS: GLIMEPIRIDE 2 MG TABLET (FP) PO SCH (06:27)
[2017-11-22] MEDS: BETHANECHOL CHLORIDE 25 MG TABLET PO SCH ×3 (06:28→22:48)
[2017-11-22] MEDS: INSULIN SLIDING SCALE (NOVOLOG) 1 VIAL SQ SCH ×4 (06:29→22:48)
[2017-11-22] MEDS: sitaGLIPtin PHOSPHATE 50 MG TABLET PO SCH (06:31)
[2017-11-22] MEDS ORDERED: PT OWN MED DRAWER 7, Y5N ONE ×3 (06:36→22:31)
[2017-11-22] MEDS ORDERED: INSULIN (NOVOLOG) ASPART 100 UNITS/ML 10ML VIAL ONE ×3 (06:37→22:30)
[2017-11-22 08:08] LABS: ANION GAP 11 (8-16); BLOOD UREA NITROGEN 23 mg/dL (7-18); CHLORIDE 107 mmol/L (98-107); CO2 25 mmol/L (21-32); CREATININE 1.4 mg/dL (0.55-1.02); GLUCOSE,RANDOM 104 mg/dL (74-106); POTASSIUM 3.9 mmol/L (3.5-5.1); SODIUM 143 mmol/L (136-145)
[2017-11-22] MEDS: TAMSULOSIN HCL 0.4 MG CAP.ER.24H (FP) PO SCH (08:11)
[2017-11-22] MEDS: AMOX TR/POT CLAV 500MG/125MG TABLETS (FP) PO SCH ×2 (08:11→17:18)
--- NOTE | 2017-11-22 09:00 | PN ---
Progress Note (short form) - Note Progress Note: failed voiding trial yesterday creat 1.7 started on urecholine/flomax repeat TOV today
[2017-11-22] MEDS: METOPROLOL TARTRATE 25 MG TABLET (FP) PO SCH ×2 (10:46→22:43)
--- NOTE | 2017-11-22 13:55 | PN ---
Progress Note, Physician - Current Medication List Current Medications: Active Medications Acetaminophen (Tylenol -) 650 mg PO Q6H PRN PRN Reason: FEVER Last Admin: 11/21/17 22:18 Dose: 650 mg Albuterol Sulfate (Ventolin 0.083% Nebulizer Soln -) 1 amp NEB Q1H PRN PRN Reason: SHORT OF BREATH/WHEEZING Amoxicillin/Clavulanate Potassium (Augmentin - 500mg Tablet) 1 tab PO BID@0800, 1730 [facility] Last Admin: 11/22/17 08:11 Dose: 1 tab Bethanechol Chloride (Urecholine -) 50 mg PO TID [facility] Last Admin: 11/22/17 13:31 Dose: 50 mg Glimepiride (Amaryl -) 2 mg PO DAILY@0700 [facility] Last Admin: 11/22/17 06:27 Dose: 2 mg Sodium Chloride (1/2 Normal Saline) 1,000 mls @ 55 mls/hr IV ASDIR [facility] Last Admin: 11/21/17 12:07 Dose: 55 mls/hr Insulin Aspart (Novolog Vial Sliding Scale -) 1 vial SQ [facility]; Protocol Last Admin: 11/22/17 11:45 Dose: Not Given Metoprolol Tartrate (Lopressor -) 25 mg PO BID [facility] Last Admin: 11/22/17 10:46 Dose: 25 mg Sitagliptin Phosphate (Januvia -) 50 mg PO DAILY@0700 [facility] Last Admin: 11/22/17 06:31 Dose: 50 mg Tamsulosin HCl (Flomax -) 0.4 mg PO DAILY@0830 [facility] Last Admin: 11/22/17 08:11 Dose: 0.4 mg - Objective Vital Signs: Vital Signs Temperature 98.4 F 11/22/17 08:51 Pulse Rate 98 H 11/22/17 08:51 Respiratory Rate 20 11/22/17 08:51 Blood Pressure 123/78 11/22/17 08:51 O2 Sat by Pulse Oximetry (%) 99 11/22/17 09:00 Constitutional: Yes: No Distress HENT: Yes: Atraumatic Neck: Yes: Supple Cardiovascular: Yes: Regular Rate and Rhythm Respiratory: Yes: CTA Bilaterally Gastrointestinal: Yes: Normal Bowel Sounds Extremities: Yes: WNL Neurological: Yes: Alert, Oriented Labs: CBC, BMP 11/21/17 06:20 11/22/17 06:00 INR, PTT INR 1.19 (0.82-1.09) H 11/14/17 16:58 Problem List - Problems (1) Acute renal failure (ARF) Assessment/Plan: jackson dc today trial of voiding failed so jackson was put back in on flomax and urocholine Code(s): N17.9 - ACUTE KIDNEY FAILURE, UNSPECIFIED Qualifiers: Acute renal failure type: unspecified Qualified Code(s): N17.9 - Acute kidney failure, unspecified (2) Acute urinary retention Assessment/Plan: jackson dc Code(s): R33.8 - OTHER RETENTION OF URINE (3) HTN (hypertension) Assessment/Plan: on meds monitor Code(s): I10 - ESSENTIAL (PRIMARY) HYPERTENSION Qualifiers: Hypertension type: essential hypertension Qualified Code(s): I10 - Essential (primary) hypertension (4) Hyperkalemia Assessment/Plan: resolved Code(s): E87.5 - HYPERKALEMIA (5) Pedal edema Code(s): R60.0 - LOCALIZED EDEMA (6) Acute bilateral obstructive uropathy Code(s): N13.9 - OBSTRUCTIVE AND REFLUX UROPATHY, UNSPECIFIED (7) Rash and nonspecific skin eruption Code(s): R21 - RASH AND OTHER NONSPECIFIC SKIN ERUPTION
--- NOTE | 2017-11-22 14:16 | PN ---
Progress Note, Physician History of Present Illness: patient unable to pass urine catheter placed will again get voiding trial - Current Medication List Current Medications: Active Medications Acetaminophen (Tylenol -) 650 mg PO Q6H PRN PRN Reason: FEVER Last Admin: 11/21/17 22:18 Dose: 650 mg Albuterol Sulfate (Ventolin 0.083% Nebulizer Soln -) 1 amp NEB Q1H PRN PRN Reason: SHORT OF BREATH/WHEEZING Amoxicillin/Clavulanate Potassium (Augmentin - 500mg Tablet) 1 tab PO BID@0800, 1730 [facility] Last Admin: 11/22/17 08:11 Dose: 1 tab Bethanechol Chloride (Urecholine -) 50 mg PO TID [facility] Last Admin: 11/22/17 13:31 Dose: 50 mg Glimepiride (Amaryl -) 2 mg PO DAILY@0700 [facility] Last Admin: 11/22/17 06:27 Dose: 2 mg Sodium Chloride (1/2 Normal Saline) 1,000 mls @ 55 mls/hr IV ASDIR [facility] Last Admin: 11/21/17 12:07 Dose: 55 mls/hr Insulin Aspart (Novolog Vial Sliding Scale -) 1 vial SQ [facility]; Protocol Last Admin: 11/22/17 11:45 Dose: Not Given Metoprolol Tartrate (Lopressor -) 25 mg PO BID [facility] Last Admin: 11/22/17 10:46 Dose: 25 mg Sitagliptin Phosphate (Januvia -) 50 mg PO DAILY@0700 [facility] Last Admin: 11/22/17 06:31 Dose: 50 mg Tamsulosin HCl (Flomax -) 0.4 mg PO DAILY@0830 [facility] Last Admin: 11/22/17 08:11 Dose: 0.4 mg - Objective Vital Signs: Vital Signs Temperature 98.4 F 11/22/17 08:51 Pulse Rate 98 H 11/22/17 08:51 Respiratory Rate 20 11/22/17 08:51 Blood Pressure 123/78 11/22/17 08:51 O2 Sat by Pulse Oximetry (%) 99 11/22/17 09:00 Constitutional: Yes: No Distress, Calm Cardiovascular: Yes: Regular Rate and Rhythm Respiratory: Yes: Regular, CTA Bilaterally Gastrointestinal: Yes: Normal Bowel Sounds, Soft Genitourinary: Yes: Hyatt Present Musculoskeletal: Yes: WNL Extremities: Yes: WNL Neurological: Yes: Alert, Oriented Psychiatric: Yes: Alert, Oriented Labs: CBC, BMP 11/21/17 06:20 11/22/17 06:00 INR, PTT INR 1.19 (0.82-1.09) H 11/14/17 16:58 Assessment/Plan Problem List - Problems (1) Acute urinary retention Code(s): R33.8 - OTHER RETENTION OF URINE (2) HTN (hypertension) Code(s): I10 - ESSENTIAL (PRIMARY) HYPERTENSION Qualifiers: Hypertension type: essential hypertension Qualified Code(s): I10 - Essential (primary) hypertension (3) Hyperkalemia Code(s): E87.5 - HYPERKALEMIA (4) Pedal edema Code(s): R60.0 - LOCALIZED EDEMA (5) Acute bilateral obstructive uropathy Code(s): N13.9 - OBSTRUCTIVE AND REFLUX UROPATHY, UNSPECIFIED 6 cellulitis of the left leg plan stable off of abx continue monitoring urine watch for voiding trials rest continue current mgmt
--- NOTE | 2017-11-22 15:25 | PN ---
Progress Note, Physician History of Present Illness: Pt seen and examined at bedside. She is awake and alert. She is getting another voiding trial. - Current Medication List Current Medications: Active Medications Acetaminophen (Tylenol -) 650 mg PO Q6H PRN PRN Reason: FEVER Last Admin: 11/21/17 22:18 Dose: 650 mg Albuterol Sulfate (Ventolin 0.083% Nebulizer Soln -) 1 amp NEB Q1H PRN PRN Reason: SHORT OF BREATH/WHEEZING Amoxicillin/Clavulanate Potassium (Augmentin - 500mg Tablet) 1 tab PO BID@0800, 1730 [facility] Last Admin: 11/22/17 08:11 Dose: 1 tab Bethanechol Chloride (Urecholine -) 50 mg PO TID [facility] Last Admin: 11/22/17 13:31 Dose: 50 mg Glimepiride (Amaryl -) 2 mg PO DAILY@0700 [facility] Last Admin: 11/22/17 06:27 Dose: 2 mg Sodium Chloride (1/2 Normal Saline) 1,000 mls @ 55 mls/hr IV ASDIR [facility] Last Admin: 11/21/17 12:07 Dose: 55 mls/hr Insulin Aspart (Novolog Vial Sliding Scale -) 1 vial SQ [facility]; Protocol Last Admin: 11/22/17 11:45 Dose: Not Given Metoprolol Tartrate (Lopressor -) 25 mg PO BID [facility] Last Admin: 11/22/17 10:46 Dose: 25 mg Sitagliptin Phosphate (Januvia -) 50 mg PO DAILY@0700 [facility] Last Admin: 11/22/17 06:31 Dose: 50 mg Tamsulosin HCl (Flomax -) 0.4 mg PO DAILY@0830 [facility] Last Admin: 11/22/17 08:11 Dose: 0.4 mg - Objective Vital Signs: Vital Signs Temperature 98.5 F 11/22/17 15:18 Pulse Rate 98 H 11/22/17 15:18 Respiratory Rate 20 11/22/17 15:18 Blood Pressure 123/78 11/22/17 08:51 O2 Sat by Pulse Oximetry (%) 99 11/22/17 09:00 Constitutional: Yes: Calm Eyes: Yes: Conjunctiva Clear HENT: Yes: Atraumatic Neck: Yes: Supple Cardiovascular: Yes: S1, S2 Respiratory: Yes: CTA Bilaterally Gastrointestinal: Yes: Soft, Abdomen, Obese Genitourinary: Yes: WNL Musculoskeletal: Yes: WNL Edema: No Neurological: Yes: Oriented Psychiatric: Yes: Oriented Labs: CBC, BMP 11/21/17 06:20 11/22/17 06:00 INR, PTT INR 1.19 (0.82-1.09) H 11/14/17 16:58 Problem List - Problems (1) Acute renal failure (ARF) Code(s): N17.9 - ACUTE KIDNEY FAILURE, UNSPECIFIED Qualifiers: Acute renal failure type: unspecified Qualified Code(s): N17.9 - Acute kidney failure, unspecified (2) Acute urinary retention Code(s): R33.8 - OTHER RETENTION OF URINE (3) HTN (hypertension) Code(s): I10 - ESSENTIAL (PRIMARY) HYPERTENSION Qualifiers: Hypertension type: essential hypertension Qualified Code(s): I10 - Essential (primary) hypertension (4) Hyperkalemia Code(s): E87.5 - HYPERKALEMIA Assessment/Plan Current Medications Generic Name Dose Route Start Last Admin Trade Name Freq PRN Reason Stop Dose Admin Acetaminophen 650 mg 11/18/17 14:34 11/21/17 22:18 Tylenol - PO 650 mg Q6H PRN Administration FEVER Albuterol Sulfate 1 amp 11/18/17 14:34 Ventolin 0.083% Nebulizer Soln - NEB Q1H PRN SHORT OF BREATH/WHEEZING Amoxicillin/Clavulanate Potassium 1 tab 11/21/17 17:30 11/22/17 08:11 Augmentin - 500mg Tablet PO 1 tab BID@0800,1730 [facility] Administration Bethanechol Chloride 50 mg 11/21/17 14:15 11/22/17 13:31 Urecholine - PO 50 mg TID [facility] Administration Glimepiride 2 mg 11/22/17 07:00 11/22/17 06:27 Amaryl - PO 2 mg DAILY@0700 [facility] Administration Sodium Chloride 1,000 mls @ 55 mls/hr 11/21/17 11:35 11/21/17 12:07 1/2 Normal Saline IV 55 mls/hr ASDIR [facility] Administration Insulin Aspart 1 vial 11/18/17 16:30 11/22/17 11:45 Novolog Vial Sliding Scale - SQ Not Given ACHS [facility] Protocol Metoprolol Tartrate 25 mg 11/18/17 22:00 11/22/17 10:46 Lopressor - PO 25 mg BID [facility] Administration Sitagliptin Phosphate 50 mg 11/22/17 07:00 11/22/17 06:31 Januvia - PO 50 mg DAILY@0700 [facility] Administration Tamsulosin HCl 0.4 mg 11/21/17 14:15 11/22/17 08:11 Flomax - PO 0.4 mg DAILY@0830 [facility] Administration Impression 1. BETH 2. hyperkalemia 3. urinary retention 4. constipation 5. left leg edema 6. rash 7. DM 8. hx of hep b exposure Plan - renal function continues to improve - urology follow up for plan - follow biopsies - will see in office after discharge - monitor bp - monitor blood sugar, will need DM education - will follow Dr Crowley
--- NOTE | 2017-11-22 16:11 | PATH ---
Surgical Pathology Report Patient Name: CHAITANYA YOO [facility]. Rec. #: [id number] /Age/Gender: 1960 (Age: 57) / F Account: [id number] Location: [address] [place] [address]/[facility] Taken: 11/18/2017 Received: 11/21/2017 Reported: 11/22/2017 Physicians: Zoila Harkins M.D. Specimen(s) Received POSTERIOR BLADDER WALL ERYTHEMA Clinical History Gross hematuria Final Diagnosis POSTERIOR BLADDER WALL, ERYTHEMA, BIOPSY: POLYPOID BLADDER MUCOSA WITH LAMINA PROPRIA EDEMA, HEMORRHAGE AND INCREASED ACUTE AND CHRONIC INFLAMMATORY INFILTRATE CONSISTENT WITH HEMORRHAGIC CYSTITIS. PROMINENT CAUTERY ARTIFACT PRESENT. Electronically Signed Luana Kaur M.D. Gross Description Received in formalin labeled "posterior bladder wall erythema," is a 0.5 cm in greatest dimension farah brown soft tissue fragment. The specimen is submitted in toto in one cassette. /11/21/2017
[2017-11-22] MEDS: ACETAMINOPHEN 325 MG TABLET (FP) PO PRN (16:14)
[2017-11-23] MEDS ORDERED: PT OWN MED DRAWER 7, Y5N ONE ×4 (05:19→21:19)
[2017-11-23] MEDS: ACETAMINOPHEN 325 MG TABLET (FP) PO PRN ×2 (05:23→13:15)
[2017-11-23] MEDS: BETHANECHOL CHLORIDE 25 MG TABLET PO SCH ×3 (05:23→21:31)
[2017-11-23] MEDS: sitaGLIPtin PHOSPHATE 50 MG TABLET PO SCH (06:14)
[2017-11-23] MEDS: GLIMEPIRIDE 2 MG TABLET (FP) PO SCH (06:14)
[2017-11-23] MEDS: INSULIN SLIDING SCALE (NOVOLOG) 1 VIAL SQ SCH ×4 (06:17→21:41)
[2017-11-23 07:31] LABS: BASO % 0.7 % (0-2.0); EOS % 2.7 % (0-4.5); HEMATOCRIT 29.9 % (32.4-45.2); HEMOGLOBIN 10.2 GM/dL (10.7-15.3); LYMPH % 18.9 % (8-40); MCH 29.5 pg (25.7-33.7); MCHC 34.1 g/dl (32.0-36.0); MEAN CELL VOLUME 86.7 fl (80-96); MEAN PLT VOLUME 8.2 fl (7.5-11.1); MONO % 8.3 % (3.8-10.2); NEUT % 69.4 % (42.8-82.8); PLATELET COUNT 454 K/MM3 (134-434); RBC 3.45 M/mm3 (3.60-5.2); RDW 12.3 % (11.6-15.6); WHITE BLOOD COUNT 12.7 K/mm3 (4.0-10.0)
[2017-11-23 07:57] LABS: ALBUMIN 3.4 g/dl (3.4-5.0); ANION GAP 11 (8-16); BLOOD UREA NITROGEN 31 mg/dL (7-18); CALCIUM 8.6 mg/dL (8.5-10.1); CHLORIDE 103 mmol/L (98-107); CO2 25 mmol/L (21-32); CREATININE 2.1 mg/dL (0.55-1.02); GLUCOSE,RANDOM 108 mg/dL (74-106); POTASSIUM 4.6 mmol/L (3.5-5.1); SGOT/AST 23 U/L (15-37); SGPT/ALT 36 U/L (12-78); SODIUM 139 mmol/L (136-145)
[2017-11-23 08:00] LABS: ALK PHOS 177 U/L (45-117); BILIRUBIN,TOTAL 0.3 mg/dL (0.2-1.0); TOT PROT 7.6 g/dl (6.4-8.2)
[2017-11-23] MEDS: AMOX TR/POT CLAV 500MG/125MG TABLETS (FP) PO SCH ×2 (08:45→17:17)
[2017-11-23] MEDS: TAMSULOSIN HCL 0.4 MG CAP.ER.24H (FP) PO SCH (08:45)
[2017-11-23] MEDS: METOPROLOL TARTRATE 25 MG TABLET (FP) PO SCH ×2 (10:40→21:31)
[2017-11-23] MEDS ORDERED: INSULIN (NOVOLOG) ASPART 100 UNITS/ML 10ML VIAL ONE ×2 (11:54→21:18)
--- NOTE | 2017-11-23 12:06 | PN ---
Progress Note, Physician History of Present Illness: patient doing well no complaints passed urine - Current Medication List Current Medications: Active Medications Acetaminophen (Tylenol -) 650 mg PO Q6H PRN PRN Reason: FEVER Last Admin: 11/23/17 05:23 Dose: 650 mg Albuterol Sulfate (Ventolin 0.083% Nebulizer Soln -) 1 amp NEB Q1H PRN PRN Reason: SHORT OF BREATH/WHEEZING Amoxicillin/Clavulanate Potassium (Augmentin - 500mg Tablet) 1 tab PO BID@0800, 1730 [facility] Last Admin: 11/23/17 08:45 Dose: 1 tab Bethanechol Chloride (Urecholine -) 50 mg PO TID [facility] Last Admin: 11/23/17 05:23 Dose: 50 mg Glimepiride (Amaryl -) 2 mg PO DAILY@0700 [facility] Last Admin: 11/23/17 06:14 Dose: 2 mg Insulin Aspart (Novolog Vial Sliding Scale -) 1 vial SQ [facility]; Protocol Last Admin: 11/23/17 11:58 Dose: 2 units Metoprolol Tartrate (Lopressor -) 25 mg PO BID [facility] Last Admin: 11/23/17 10:40 Dose: 25 mg Sitagliptin Phosphate (Januvia -) 50 mg PO DAILY@0700 [facility] Last Admin: 11/23/17 06:14 Dose: 50 mg Tamsulosin HCl (Flomax -) 0.4 mg PO DAILY@0830 [facility] Last Admin: 11/23/17 08:45 Dose: 0.4 mg - Objective Vital Signs: Vital Signs Temperature 97.8 F 11/23/17 08:58 Pulse Rate 89 11/23/17 08:58 Respiratory Rate 20 11/23/17 08:58 Blood Pressure 129/70 11/23/17 08:58 O2 Sat by Pulse Oximetry (%) 96 11/22/17 21:00 Constitutional: Yes: No Distress, Calm Cardiovascular: Yes: Regular Rate and Rhythm Respiratory: Yes: Regular, CTA Bilaterally Gastrointestinal: Yes: Normal Bowel Sounds, Soft Musculoskeletal: Yes: WNL Extremities: Yes: WNL Neurological: Yes: Alert, Oriented Psychiatric: Yes: Alert, Oriented Labs: CBC, BMP 11/23/17 06:06 11/23/17 06:06 INR, PTT INR 1.19 (0.82-1.09) H 11/14/17 16:58 Assessment/Plan Problem List - Problems (1) Acute urinary retention Code(s): R33.8 - OTHER RETENTION OF URINE (2) HTN (hypertension) Code(s): I10 - ESSENTIAL (PRIMARY) HYPERTENSION Qualifiers: Hypertension type: essential hypertension Qualified Code(s): I10 - Essential (primary) hypertension (3) Hyperkalemia Code(s): E87.5 - HYPERKALEMIA (4) Pedal edema Code(s): R60.0 - LOCALIZED EDEMA (5) Acute bilateral obstructive uropathy Code(s): N13.9 - OBSTRUCTIVE AND REFLUX UROPATHY, UNSPECIFIED 6 cellulitis of the left leg plan continue current mgmt can stop abx tomorrow which are oral rest continue current mgmt patient stable
--- NOTE | 2017-11-23 12:13 | PN ---
Progress Note, Physician History of Present Illness: Ambulating and tolerating voiding trial. - Current Medication List Current Medications: Active Medications Acetaminophen (Tylenol -) 650 mg PO Q6H PRN PRN Reason: FEVER Last Admin: 11/23/17 05:23 Dose: 650 mg Albuterol Sulfate (Ventolin 0.083% Nebulizer Soln -) 1 amp NEB Q1H PRN PRN Reason: SHORT OF BREATH/WHEEZING Amoxicillin/Clavulanate Potassium (Augmentin - 500mg Tablet) 1 tab PO BID@0800, 1730 [facility] Last Admin: 11/23/17 08:45 Dose: 1 tab Bethanechol Chloride (Urecholine -) 50 mg PO TID [facility] Last Admin: 11/23/17 05:23 Dose: 50 mg Glimepiride (Amaryl -) 2 mg PO DAILY@0700 [facility] Last Admin: 11/23/17 06:14 Dose: 2 mg Insulin Aspart (Novolog Vial Sliding Scale -) 1 vial SQ [facility]; Protocol Last Admin: 11/23/17 11:58 Dose: 2 units Metoprolol Tartrate (Lopressor -) 25 mg PO BID [facility] Last Admin: 11/23/17 10:40 Dose: 25 mg Sitagliptin Phosphate (Januvia -) 50 mg PO DAILY@0700 [facility] Last Admin: 11/23/17 06:14 Dose: 50 mg Tamsulosin HCl (Flomax -) 0.4 mg PO DAILY@0830 [facility] Last Admin: 11/23/17 08:45 Dose: 0.4 mg - Objective Vital Signs: Vital Signs Temperature 97.8 F 11/23/17 08:58 Pulse Rate 89 11/23/17 08:58 Respiratory Rate 20 11/23/17 08:58 Blood Pressure 129/70 11/23/17 08:58 O2 Sat by Pulse Oximetry (%) 96 11/22/17 21:00 Constitutional: Yes: No Distress, Calm Labs: CBC, BMP 11/23/17 06:06 11/23/17 06:06 INR, PTT INR 1.19 (0.82-1.09) H 11/14/17 16:58 Problem List - Problems (1) Acute urinary retention Code(s): R33.8 - OTHER RETENTION OF URINE (2) HTN (hypertension) Code(s): I10 - ESSENTIAL (PRIMARY) HYPERTENSION Qualifiers: Hypertension type: essential hypertension Qualified Code(s): I10 - Essential (primary) hypertension (3) Pedal edema Code(s): R60.0 - LOCALIZED EDEMA (4) Acute bilateral obstructive uropathy Code(s): N13.9 - OBSTRUCTIVE AND REFLUX UROPATHY, UNSPECIFIED (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 Sinus tachycardia and hypertension improved 2. Acute on CKD and hyperkalemia referable to obstructive uropathy with urinary retention and moderate bilateral hydronephrosis improving 3. Hemorrhagic cystitis 4. Left pedal edema, etiology unclear 5. Left leg rash referable to leukocytoclastic vasculitis, cellulitis PLAN: 1. Undergoing voiding trial 2. Continue Lopressor 25 bid 3. Complete empiric antibiotics course 4. Monitor electrolytes, bladder biopsy c/w hemorrhagic cystitis and skin biopsy c/w leukocytoclastic vasculitis 5. DVT prophylaxis
--- NOTE | 2017-11-23 12:14 | PN ---
Progress Note, Physician History of Present Illness: Pt seen and examined at bedside. She is awake and alert. She denies dysuria. - Current Medication List Current Medications: Active Medications Acetaminophen (Tylenol -) 650 mg PO Q6H PRN PRN Reason: FEVER Last Admin: 11/23/17 05:23 Dose: 650 mg Albuterol Sulfate (Ventolin 0.083% Nebulizer Soln -) 1 amp NEB Q1H PRN PRN Reason: SHORT OF BREATH/WHEEZING Amoxicillin/Clavulanate Potassium (Augmentin - 500mg Tablet) 1 tab PO BID@0800, 1730 [facility] Last Admin: 11/23/17 08:45 Dose: 1 tab Bethanechol Chloride (Urecholine -) 50 mg PO TID [facility] Last Admin: 11/23/17 05:23 Dose: 50 mg Glimepiride (Amaryl -) 2 mg PO DAILY@0700 [facility] Last Admin: 11/23/17 06:14 Dose: 2 mg Insulin Aspart (Novolog Vial Sliding Scale -) 1 vial SQ [facility]; Protocol Last Admin: 11/23/17 11:58 Dose: 2 units Metoprolol Tartrate (Lopressor -) 25 mg PO BID [facility] Last Admin: 11/23/17 10:40 Dose: 25 mg Sitagliptin Phosphate (Januvia -) 50 mg PO DAILY@0700 [facility] Last Admin: 11/23/17 06:14 Dose: 50 mg Tamsulosin HCl (Flomax -) 0.4 mg PO DAILY@0830 [facility] Last Admin: 11/23/17 08:45 Dose: 0.4 mg - Objective Vital Signs: Vital Signs Temperature 97.8 F 11/23/17 08:58 Pulse Rate 89 11/23/17 08:58 Respiratory Rate 20 11/23/17 08:58 Blood Pressure 129/70 11/23/17 08:58 O2 Sat by Pulse Oximetry (%) 96 11/22/17 21:00 Constitutional: Yes: Calm Eyes: Yes: Conjunctiva Clear HENT: Yes: Atraumatic Neck: Yes: Supple Cardiovascular: Yes: S1, S2 Respiratory: Yes: CTA Bilaterally Gastrointestinal: Yes: Soft, Abdomen, Obese Genitourinary: Yes: Other (distended bladder) Musculoskeletal: Yes: WNL Edema: No Neurological: Yes: Oriented Psychiatric: Yes: Oriented Labs: CBC, BMP 11/23/17 06:06 11/23/17 06:06 INR, PTT INR 1.19 (0.82-1.09) H 11/14/17 16:58 Problem List - Problems (1) Acute renal failure (ARF) Code(s): N17.9 - ACUTE KIDNEY FAILURE, UNSPECIFIED Qualifiers: Acute renal failure type: unspecified Qualified Code(s): N17.9 - Acute kidney failure, unspecified (2) Acute urinary retention Code(s): R33.8 - OTHER RETENTION OF URINE (3) HTN (hypertension) Code(s): I10 - ESSENTIAL (PRIMARY) HYPERTENSION Qualifiers: Hypertension type: essential hypertension Qualified Code(s): I10 - Essential (primary) hypertension (4) Hyperkalemia Code(s): E87.5 - HYPERKALEMIA Assessment/Plan Current Medications Generic Name Dose Route Start Last Admin Trade Name Freq PRN Reason Stop Dose Admin Acetaminophen 650 mg 11/18/17 14:34 11/23/17 05:23 Tylenol - PO 650 mg Q6H PRN Administration FEVER Albuterol Sulfate 1 amp 11/18/17 14:34 Ventolin 0.083% Nebulizer Soln - NEB Q1H PRN SHORT OF BREATH/WHEEZING Amoxicillin/Clavulanate Potassium 1 tab 11/21/17 17:30 11/23/17 08:45 Augmentin - 500mg Tablet PO 1 tab BID@0800,1730 EZIO Administration Bethanechol Chloride 50 mg 11/21/17 14:15 11/23/17 05:23 Urecholine - PO 50 mg TID EZIO Administration Glimepiride 2 mg 11/22/17 07:00 11/23/17 06:14 Amaryl - PO 2 mg DAILY@0700 EZIO Administration Insulin Aspart 1 vial 11/18/17 16:30 11/23/17 11:58 Novolog Vial Sliding Scale - SQ 2 units ACHS EZIO Administration Protocol Metoprolol Tartrate 25 mg 11/18/17 22:00 11/23/17 10:40 Lopressor - PO 25 mg BID EZIO Administration Sitagliptin Phosphate 50 mg 11/22/17 07:00 11/23/17 06:14 Januvia - PO 50 mg DAILY@0700 EZIO Administration Tamsulosin HCl 0.4 mg 11/21/17 14:15 07/18/18 08:45 Flomax - PO 0.4 mg DAILY@0830 EZIO Administration Impression 1. BETH 2. hyperkalemia 3. urinary retention 4. constipation 5. left leg edema 6. rash 7. DM 8. hx of hep b exposure Plan - check bladder scan, spoke to nurse to check and call me - suspect she is obstructed again as creatinine is higher - pt did have difficulty voiding - follow skin biopsy report - monitor bp - monitor blood sugar - will follow Dr Crowley
--- NOTE | 2017-11-23 18:27 | PN ---
Progress Note, Physician History of Present Illness: jackson put back in as she was retaining urine cr went up - Current Medication List Current Medications: Active Medications Acetaminophen (Tylenol -) 650 mg PO Q6H PRN PRN Reason: FEVER Last Admin: 11/23/17 13:15 Dose: 650 mg Amoxicillin/Clavulanate Potassium (Augmentin - 500mg Tablet) 1 tab PO BID@0800, 1730 [facility] Last Admin: 11/23/17 17:17 Dose: 1 tab Bethanechol Chloride (Urecholine -) 50 mg PO TID [facility] Last Admin: 11/23/17 13:15 Dose: 50 mg Glimepiride (Amaryl -) 2 mg PO DAILY@0700 [facility] Last Admin: 11/23/17 06:14 Dose: 2 mg Insulin Aspart (Novolog Vial Sliding Scale -) 1 vial SQ [facility]; Protocol Last Admin: 11/23/17 17:16 Dose: Not Given Metoprolol Tartrate (Lopressor -) 25 mg PO BID [facility] Last Admin: 11/23/17 10:40 Dose: 25 mg Sitagliptin Phosphate (Januvia -) 50 mg PO DAILY@0700 [facility] Last Admin: 11/23/17 06:14 Dose: 50 mg Tamsulosin HCl (Flomax -) 0.4 mg PO DAILY@0830 [facility] Last Admin: 11/23/17 08:45 Dose: 0.4 mg - Objective Vital Signs: Vital Signs Temperature 98.5 F 11/23/17 15:10 Pulse Rate 88 11/23/17 15:10 Respiratory Rate 20 11/23/17 15:10 Blood Pressure 114/66 11/23/17 15:10 O2 Sat by Pulse Oximetry (%) 96 11/23/17 09:00 Constitutional: Yes: Anxious HENT: Yes: Atraumatic Neck: Yes: Supple Cardiovascular: Yes: Regular Rate and Rhythm Respiratory: Yes: CTA Bilaterally Gastrointestinal: Yes: Normal Bowel Sounds Extremities: Yes: WNL Neurological: Yes: Alert, Oriented Labs: CBC, BMP 11/23/17 06:06 11/23/17 06:06 INR, PTT INR 1.19 (0.82-1.09) H 11/14/17 16:58 Problem List - Problems (1) Acute renal failure (ARF) Assessment/Plan: jackson inserted again as she was retaining cr elevated Code(s): N17.9 - ACUTE KIDNEY FAILURE, UNSPECIFIED Qualifiers: Acute renal failure type: unspecified Qualified Code(s): N17.9 - Acute kidney failure, unspecified (2) Acute urinary retention Assessment/Plan: jackson in place monitor cr Code(s): R33.8 - OTHER RETENTION OF URINE (3) HTN (hypertension) Assessment/Plan: on meds monitor Code(s): I10 - ESSENTIAL (PRIMARY) HYPERTENSION Qualifiers: Hypertension type: essential hypertension Qualified Code(s): I10 - Essential (primary) hypertension (4) Hyperkalemia Assessment/Plan: resolved Code(s): E87.5 - HYPERKALEMIA (5) Pedal edema Code(s): R60.0 - LOCALIZED EDEMA (6) Acute bilateral obstructive uropathy Code(s): N13.9 - OBSTRUCTIVE AND REFLUX UROPATHY, UNSPECIFIED (7) Rash and nonspecific skin eruption Assessment/Plan: derm consult..reviewed cellulitis start abx biopsy done by derm Code(s): R21 - RASH AND OTHER NONSPECIFIC SKIN ERUPTION
[2017-11-24] MEDS: ACETAMINOPHEN 325 MG TABLET (FP) PO PRN (00:31)
[2017-11-24] MEDS ORDERED: PT OWN MED DRAWER 7, Y5N ONE (05:57)
[2017-11-24] MEDS: GLIMEPIRIDE 2 MG TABLET (FP) PO SCH (06:00)
[2017-11-24] MEDS: BETHANECHOL CHLORIDE 25 MG TABLET PO SCH ×2 (06:00→13:32)
[2017-11-24] MEDS: sitaGLIPtin PHOSPHATE 50 MG TABLET PO SCH (06:01)
[2017-11-24] MEDS: INSULIN SLIDING SCALE (NOVOLOG) 1 VIAL SQ SCH ×3 (06:04→16:35)
[2017-11-24] MEDS: AMOX TR/POT CLAV 500MG/125MG TABLETS (FP) PO SCH ×2 (08:16→16:36)
[2017-11-24] MEDS: TAMSULOSIN HCL 0.4 MG CAP.ER.24H (FP) PO SCH (08:16)
[2017-11-24] MEDS: METOPROLOL TARTRATE 25 MG TABLET (FP) PO SCH (09:10)
[2017-11-24 09:52] LABS: HEMOGLOBIN 10.2 GM/dL (10.7-15.3); MCH 29.7 pg (25.7-33.7); MCHC 34.1 g/dl (32.0-36.0); PLATELET COUNT 476 K/MM3 (134-434); RBC 3.45 M/mm3 (3.60-5.2); RDW 12.4 % (11.6-15.6); WHITE BLOOD COUNT 9.1 K/mm3 (4.0-10.0)
--- NOTE | 2017-11-24 10:00 | PN ---
Progress Note (short form) - Note Progress Note: failed repeat voiding trial with subsequent elevation of creatinine on flomax/urecholine jackson in place with clear urine biopsy c/w hemorrhagic cystitis suspect neurogenic bladder dysfunction may d/c home with jackson outpt f/u for urodynamic evaluation
[2017-11-24 10:18] LABS: ALBUMIN 3.5 g/dl (3.4-5.0); ANION GAP 10 (8-16); BILIRUBIN,TOTAL 0.3 mg/dL (0.2-1.0); BLOOD UREA NITROGEN 25 mg/dL (7-18); CHLORIDE 108 mmol/L (98-107); CO2 25 mmol/L (21-32); CREATININE 1.8 mg/dL (0.55-1.02); GLUCOSE,RANDOM 89 mg/dL (74-106); POTASSIUM 4.2 mmol/L (3.5-5.1); SGOT/AST 18 U/L (15-37); SGPT/ALT 31 U/L (12-78); SODIUM 143 mmol/L (136-145); TOT PROT 7.9 g/dl (6.4-8.2)
[2017-11-24 10:19] LABS: ALK PHOS 158 U/L (45-117)
--- NOTE | 2017-11-24 11:05 | PN ---
Progress Note, Physician History of Present Illness: Failed voiding trial with sensation of incomplete voiding and recurrence of obstruction and jackson re-inserted, suspect neurogenic bladder. - Current Medication List Current Medications: Active Medications Acetaminophen (Tylenol -) 650 mg PO Q6H PRN PRN Reason: FEVER Last Admin: 11/24/17 00:31 Dose: 650 mg Amoxicillin/Clavulanate Potassium (Augmentin - 500mg Tablet) 1 tab PO BID@0800, 1730 [facility] Last Admin: 11/24/17 08:16 Dose: 1 tab Bethanechol Chloride (Urecholine -) 50 mg PO TID [facility] Last Admin: 11/24/17 06:00 Dose: 50 mg Glimepiride (Amaryl -) 2 mg PO DAILY@0700 [facility] Last Admin: 11/24/17 06:00 Dose: 2 mg Insulin Aspart (Novolog Vial Sliding Scale -) 1 vial SQ [facility]; Protocol Last Admin: 11/24/17 10:23 Dose: Not Given Metoprolol Tartrate (Lopressor -) 25 mg PO BID [facility] Last Admin: 11/24/17 09:10 Dose: 25 mg Sitagliptin Phosphate (Januvia -) 50 mg PO DAILY@0700 [facility] Last Admin: 11/24/17 06:01 Dose: 50 mg Tamsulosin HCl (Flomax -) 0.4 mg PO DAILY@0830 [facility] Last Admin: 11/24/17 08:16 Dose: 0.4 mg - Objective Vital Signs: Vital Signs Temperature 98.3 F 11/24/17 05:45 Pulse Rate 85 11/24/17 05:45 Respiratory Rate 20 11/24/17 05:45 Blood Pressure 117/70 11/24/17 05:45 O2 Sat by Pulse Oximetry (%) 95 11/24/17 08:28 Constitutional: Yes: No Distress, Calm Neck: Yes: Supple Cardiovascular: Yes: Regular Rate and Rhythm Respiratory: Yes: Regular, CTA Bilaterally Gastrointestinal: Yes: Normal Bowel Sounds, Soft Genitourinary: Yes: Jackson Present Edema: No Labs: CBC, BMP 11/24/17 09:33 11/24/17 09:33 INR, PTT INR 1.19 (0.82-1.09) H 11/14/17 16:58 Problem List - Problems (1) Acute urinary retention Code(s): R33.8 - OTHER RETENTION OF URINE (2) HTN (hypertension) Code(s): I10 - ESSENTIAL (PRIMARY) HYPERTENSION Qualifiers: Hypertension type: essential hypertension Qualified Code(s): I10 - Essential (primary) hypertension (3) Pedal edema Code(s): R60.0 - LOCALIZED EDEMA (4) Acute bilateral obstructive uropathy Code(s): N13.9 - OBSTRUCTIVE AND REFLUX UROPATHY, UNSPECIFIED (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 Sinus tachycardia and hypertension improved 2. Acute on CKD and hyperkalemia referable to obstructive uropathy with urinary retention and moderate bilateral hydronephrosis - suspect neurogenic bladder 3. Hemorrhagic cystitis 4. Left pedal edema, etiology unclear 5. Left leg rash referable to leukocytoclastic vasculitis, cellulitis PLAN: 1. Failed repeat voiding trial with subsequent elevation of creatinine 2. Continue Lopressor 25 bid 3. Complete empiric antibiotics course 4. Monitor electrolytes, bladder biopsy c/w hemorrhagic cystitis and skin biopsy c/w leukocytoclastic vasculitis 5. DVT prophylaxis 6. Outpt f/u for urodynamic evaluation 7. D/c planning
[2017-11-24 15:47] VITALS: BP 122/72; PULSE 92; TEMP 99.4
--- NOTE | 2017-11-24 16:16 | DS ---
Physical Examination Vital Signs: Vital Signs Temperature 99.4 F 11/24/17 15:43 Pulse Rate 92 H 11/24/17 15:43 Respiratory Rate 22 11/24/17 15:43 Blood Pressure 122/72 11/24/17 15:43 O2 Sat by Pulse Oximetry (%) 95 11/24/17 08:28 Constitutional: Yes: Anxious HENT: Yes: Atraumatic Neck: Yes: Supple Cardiovascular: Yes: Regular Rate and Rhythm Respiratory: Yes: CTA Bilaterally Gastrointestinal: Yes: Normal Bowel Sounds Extremities: Yes: WNL Neurological: Yes: Alert, Oriented Labs: CBC, BMP 11/24/17 09:33 11/24/17 09:33 Discharge Summary Reason For Visit: ACUTE RENAL FAILURE, ACUTE RETENTION OF URINE Current Active Problems Acute bilateral obstructive uropathy (Acute) Acute renal failure (ARF) (Acute) Acute urinary retention (Acute) Diabetes mellitus with hyperosmolarity (Acute) HTN (hypertension) (Acute) Hemorrhagic cystitis (Acute) Hyperkalemia (Acute) Leukocytoclastic vasculitis (Acute) Pedal edema (Acute) Rash and nonspecific skin eruption (Acute) Condition: Fair - Instructions Diet, Activity, Other Instructions: fu with urology next week fu pmd 1-2 weeks dc home with jackson Referrals: Erica Hassan MD [Staff Physician] - Danyel Headley MD [Staff Physician] - Irineo Liao MD [Staff Physician] - Jacinto Levine MD [Staff Physician] - Ehsan Hunter MD [Staff Physician] - Bro Crowley MD [Staff Physician] - Rick Arteaga MD [Staff Physician] - Disposition: HOME - Home Medications Comprehensive Discharge Medication List: Ambulatory Orders Amox-Tr/K Cl [Augmentin 500-125mg Tablet -] 1 tab PO BID@0800,1730 #10 tablet Bethanechol Chloride [Bethanechol Chloride -] 50 mg PO TID #100 tablet 11/24/17 Glimepiride [Amaryl -] 2 mg PO DAILY@0700 #30 tablet 11/24/17 Metoprolol Tartrate [Lopressor -] 25 mg PO BID #60 tablet 11/24/17 Miscellaneous Medical Supply [Outpatient Order] 1 each ASDIR #1 misc Miscellaneous Medical Supply [Outpatient Order] 1 each [facility] #1 [facility] [place] Miscellaneous Medical Supply [Outpatient Order] 1 each [facility] #1 [facility] [place] Sitagliptin Phosphate [Januvia -] 50 mg PO DAILY@0700 #30 tablet 11/24/17 Tamsulosin HCl [Flomax -] 0.4 mg PO DAILY@0830 #30 cap.er.24h 11/24/17 dc home with jackson fu pmd/urology next week
--- NOTE | 2017-11-24 16:48 | PN ---
Progress Note, Physician History of Present Illness: Pt seen and examined at bedside. She is awake and alert. She is anxious today. Jackson in place. - Current Medication List Current Medications: Active Medications Acetaminophen (Tylenol -) 650 mg PO Q6H PRN PRN Reason: FEVER Last Admin: 11/24/17 00:31 Dose: 650 mg Amoxicillin/Clavulanate Potassium (Augmentin - 500mg Tablet) 1 tab PO BID@0800, 1730 [facility] Last Admin: 11/24/17 16:36 Dose: 1 tab Bethanechol Chloride (Urecholine -) 50 mg PO TID [facility] Last Admin: 11/24/17 13:32 Dose: 50 mg Glimepiride (Amaryl -) 2 mg PO DAILY@0700 [facility] Last Admin: 11/24/17 06:00 Dose: 2 mg Insulin Aspart (Novolog Vial Sliding Scale -) 1 vial SQ [facility] REPLAC[facility] BY [facility]; Protocol Last Admin: 11/24/17 16:35 Dose: Not Given Metoprolol Tartrate (Lopressor -) 25 mg PO BID [facility] Last Admin: 11/24/17 09:10 Dose: 25 mg Sitagliptin Phosphate (Januvia -) 50 mg PO DAILY@0700 [facility] Last Admin: 11/24/17 06:01 Dose: 50 mg Tamsulosin HCl (Flomax -) 0.4 mg PO DAILY@0830 [facility] Last Admin: 11/24/17 08:16 Dose: 0.4 mg - Objective Vital Signs: Vital Signs Temperature 99.4 F 11/24/17 15:43 Pulse Rate 92 H 11/24/17 15:43 Respiratory Rate 22 11/24/17 15:43 Blood Pressure 122/72 11/24/17 15:43 O2 Sat by Pulse Oximetry (%) 95 11/24/17 08:28 Constitutional: Yes: Anxious Eyes: Yes: Conjunctiva Clear HENT: Yes: Atraumatic Neck: Yes: Supple Cardiovascular: Yes: S1, S2 Respiratory: Yes: CTA Bilaterally Gastrointestinal: Yes: Normal Bowel Sounds, Soft Genitourinary: Yes: Jackson Present Musculoskeletal: Yes: WNL Edema: No Neurological: Yes: Oriented Psychiatric: Yes: Oriented Labs: CBC, BMP 11/24/17 09:33 11/24/17 09:33 INR, PTT INR 1.19 (0.82-1.09) H 11/14/17 16:58 Problem List - Problems (1) Acute renal failure (ARF) Code(s): N17.9 - ACUTE KIDNEY FAILURE, UNSPECIFIED Qualifiers: Acute renal failure type: unspecified Qualified Code(s): N17.9 - Acute kidney failure, unspecified (2) Acute urinary retention Code(s): R33.8 - OTHER RETENTION OF URINE (3) HTN (hypertension) Code(s): I10 - ESSENTIAL (PRIMARY) HYPERTENSION Qualifiers: Hypertension type: essential hypertension Qualified Code(s): I10 - Essential (primary) hypertension (4) Hyperkalemia Code(s): E87.5 - HYPERKALEMIA Assessment/Plan Current Medications Generic Name Dose Route Start Last Admin Trade Name Freq PRN Reason Stop Dose Admin Acetaminophen 650 mg 11/18/17 14:34 11/24/17 00:31 Tylenol - PO 650 mg Q6H PRN Administration FEVER Amoxicillin/Clavulanate Potassium 1 tab 11/21/17 17:30 11/24/17 16:36 Augmentin - 500mg Tablet PO 1 tab BID@0800,1730 EZIO Administration Bethanechol Chloride 50 mg 11/21/17 14:15 11/24/17 13:32 Urecholine - PO 50 mg TID EZIO Administration Glimepiride 2 mg 11/22/17 07:00 11/24/17 06:00 Amaryl - PO 2 mg DAILY@0700 EZIO Administration Insulin Aspart 1 vial 11/18/17 16:30 11/24/17 16:35 Novolog Vial Sliding Scale - SQ Not Given ACHS REPLACED BY [facility] Protocol Metoprolol Tartrate 25 mg 11/18/17 22:00 11/24/17 09:10 Lopressor - PO 25 mg BID EZIO Administration Sitagliptin Phosphate 50 mg 11/22/17 07:00 11/24/17 06:01 Januvia - PO 50 mg DAILY@0700 EZIO Administration Tamsulosin HCl 0.4 mg 11/21/17 14:15 11/24/17 08:16 Flomax - PO 0.4 mg DAILY@0830 EZIO Administration Impression 1. BETH 2. hyperkalemia 3. urinary retention 4. constipation 5. left leg edema 6. rash 7. DM 8. hx of hep b exposure Plan - renal function is improving - maintain jackson - urology follow up - will need outpt follow up as well - follow biopsy reports - will follow Dr Crowley
--- NOTE | 2017-11-24 18:32 | PN ---
Progress Note, Physician History of Present Illness: patient passed urine then could not pass urine catheter had to be placed patients going home with catheter - Current Medication List Current Medications: Active Medications Acetaminophen (Tylenol -) 650 mg PO Q6H PRN PRN Reason: FEVER Last Admin: 11/24/17 00:31 Dose: 650 mg Amoxicillin/Clavulanate Potassium (Augmentin - 500mg Tablet) 1 tab PO BID@0800, 1730 [facility] Last Admin: 11/24/17 16:36 Dose: 1 tab Bethanechol Chloride (Urecholine -) 50 mg PO TID [facility] Last Admin: 11/24/17 13:32 Dose: 50 mg Glimepiride (Amaryl -) 2 mg PO DAILY@0700 [facility] Last Admin: 11/24/17 06:00 Dose: 2 mg Insulin Aspart (Novolog Vial Sliding Scale -) 1 vial SQ [facility]; Protocol Last Admin: 11/24/17 16:35 Dose: Not Given Metoprolol Tartrate (Lopressor -) 25 mg PO BID [facility] Last Admin: 11/24/17 09:10 Dose: 25 mg Sitagliptin Phosphate (Januvia -) 50 mg PO DAILY@0700 [facility] Last Admin: 11/24/17 06:01 Dose: 50 mg Tamsulosin HCl (Flomax -) 0.4 mg PO DAILY@0830 [facility] Last Admin: 11/24/17 08:16 Dose: 0.4 mg - Objective Vital Signs: Vital Signs Temperature 99.4 F 11/24/17 15:43 Pulse Rate 92 H 11/24/17 15:43 Respiratory Rate 22 11/24/17 15:43 Blood Pressure 122/72 11/24/17 15:43 O2 Sat by Pulse Oximetry (%) 95 11/24/17 08:28 Constitutional: Yes: No Distress, Calm Cardiovascular: Yes: Regular Rate and Rhythm Respiratory: Yes: Regular, CTA Bilaterally Gastrointestinal: Yes: Normal Bowel Sounds, Soft Genitourinary: Yes: Hyatt Present Musculoskeletal: Yes: WNL Extremities: Yes: WNL Neurological: Yes: Alert, Oriented Psychiatric: Yes: Alert, Oriented Labs: CBC, BMP 11/24/17 09:33 11/24/17 09:33 INR, PTT INR 1.19 (0.82-1.09) H 11/14/17 16:58 Assessment/Plan Problem List - Problems (1) Acute urinary retention Code(s): R33.8 - OTHER RETENTION OF URINE (2) HTN (hypertension) Code(s): I10 - ESSENTIAL (PRIMARY) HYPERTENSION Qualifiers: Hypertension type: essential hypertension Qualified Code(s): I10 - Essential (primary) hypertension (3) Hyperkalemia Code(s): E87.5 - HYPERKALEMIA (4) Pedal edema Code(s): R60.0 - LOCALIZED EDEMA (5) Acute bilateral obstructive uropathy Code(s): N13.9 - OBSTRUCTIVE AND REFLUX UROPATHY, UNSPECIFIED 6 cellulitis of the left leg plan stable off of abx continue monitoring urine follow with urology rest as per the team
== END 2017-11-24 18:54 | disposition home or self-care (01) | DRG 669 ==
LOC: JER 14:51 → UNDOADMIN 21:05 → JERBED 21:05 → J4W 11-16 00:35 → JERBED 11-16 00:35 → J6S 11-18 15:37
PROVIDERS: ADMIT Internal Medicine; ATTEND Internal Medicine
PROC: 0HBLXZX Excision of Left Lower Leg Skin, External Approach, Diagnostic (ICD-10-PCS; principal; 2017-11-17)
PROC: 3E1K38Z Irrigation of Genitourinary Tract using Irrigating Substance, Percutaneous Approach (ICD-10-PCS; 2017-11-17)
PROC: 0T9B8ZZ Drainage of Bladder, Via Natural or Artificial Opening Endoscopic (ICD-10-PCS; 2017-11-17)
PROC: 0TBB8ZX Excision of Bladder, Via Natural or Artificial Opening Endoscopic, Diagnostic (ICD-10-PCS; 2017-11-18)
PROC: 0T5B8ZZ Destruction of Bladder, Via Natural or Artificial Opening Endoscopic (ICD-10-PCS; 2017-11-18)
DX: N17.9 Acute kidney failure, unspecified (principal); L03.116 Cellulitis of left lower limb; M31.0 Hypersensitivity angiitis; R33.9 Retention of urine, unspecified; I10 Essential (primary) hypertension; E87.5 Hyperkalemia; R60.0 Localized edema; R00.0 Tachycardia, unspecified; E66.9 Obesity, unspecified; Z68.37 Body mass index [BMI] 37.0-37.9, adult; K59.00 Constipation, unspecified; R21 Rash and other nonspecific skin eruption; N13.9 Obstructive and reflux uropathy, unspecified; N13.30 Unspecified hydronephrosis; R31.0 Gross hematuria; N35.9 Urethral stricture, unspecified; N30.91 Cystitis, unspecified with hematuria; E11.9 Type 2 diabetes mellitus without complications; F41.9 Anxiety disorder, unspecified
CPT/HCPCS: 36415; 74176-TC; 76775-TC; 80048; 80053; 82550; 82962; 83036; 83516; 83520; 83735; 83880; 84155; 84165; 84443; 85025; 85027; 85610; 86038; 86225; 86256; 86704; 86706; 86708; 87340; 87522; 88305-TC; 93005; 93010; 93306-TC; 93971-TC; 94010; 94640; 94760; 99285-25; J1644; J7030

== ENCOUNTER 2017-12-01 02:15 | Emergency (ER) | payer OTHER ==
--- NOTE | 2017-12-01 02:58 | PDOC ---
History of Present Illness - General Stated Complaint: CATHETER PROBLEM Time Seen by Provider: 12/01/17 02:50 - History of Present Illness Initial Comments: 12/01/17 02:57 57 yo F with h/o HTN, neurogenic bladder, hemorrhagic cystitis, leukocytoclastic vasculitis, and ARF ( 11/14-11/24/17), acute BL obstructive uropathy, with indwelling Jackson catheter who p/w with decreased urinary output. Patient reports decreased output today from catheter. 200 drained this afternoon , and currently 50 ml urine in jackson bag. No identifiable triggers or alleviators. Patient reports increasing, discomfort and lower abdomen distension. Also endorses intermittent dysuria, with absent hematuria. Jackson last changed x 1 week ago. Patient prompted to come to ED for jackson irrigation by urologist Dr. moreau. Patient with apt. at Dr. Moreau tomorrow at 13: 00. Patient denies N/V, F,C, CP, SOB, diarrhea, constipation, lightheadedness, weakness, sensory changes. PMHx: as noted above. ROS: as noted SHx: Denies Etoh, IVDA, tobacco. Allergies: NKDA Urology Dr. Moreau. Past History - Past Medical History Allergies/Adverse Reactions: Allergies Allergy/AdvReac Type Severity Reaction Status Date / Time No Known Allergies Allergy Verified 11/14/17 15:16 Home Medications: Ambulatory Orders Amox-Tr/K Cl [Augmentin 500-125mg Tablet -] 1 tab PO BID@0800,1730 #10 tablet Bethanechol Chloride [Bethanechol Chloride -] 50 mg PO TID #100 tablet 11/24/17 Glimepiride [Amaryl -] 2 mg PO DAILY@0700 #30 tablet 11/24/17 Metoprolol Tartrate [Lopressor -] 25 mg PO BID #60 tablet 11/24/17 Miscellaneous Medical Supply [Outpatient Order] 1 each [place]1 [facility]iscellaneous Medical Supply [Outpatient Order] 1 each ASDIR #1 misc Miscellaneous Medical Supply [Outpatient Order] 1 each ASDIR #1 misc Sitagliptin Phosphate [Januvia -] 50 mg PO DAILY@0700 #30 tablet 11/24/17 Tamsulosin HCl [Flomax -] 0.4 mg PO DAILY@0830 #30 cap.er.24h 11/24/17 Anemia: No Asthma: No Cancer: No Cardiac Disorders: Yes (MVP 10YRS AGO) CVA: No COPD: No CHF: No Dementia: No Diabetes: No GI Disorders: No Disorders: No HTN: No Hypercholesterolemia: No Liver Disease: No Seizures: No Thyroid Disease: No - Surgical History Abdominal Surgery: No Appendectomy: No Cardiac Surgery: No Cholecystectomy: No Lung Surgery: No Neurologic Surgery: No Orthopedic Surgery: No - Suicide/Smoking/Psychosocial Hx Smoking History: Never smoked Have you smoked in the past 12 months: No Hx Alcohol Use: No Drug/Substance Use Hx: No Substance Use Type: None Hx Substance Use Treatment: No Review of Systems - Review of Systems Comments:: 12/01/17 03:14 GENERAL/CONSTITUTIONAL: No fever or chills. No weakness. HEAD, EYES, EARS, NOSE AND THROAT: No change in vision. No ear pain or discharge. No sore throat. CARDIOVASCULAR: No chest pain or shortness of breath RESPIRATORY: No cough, wheezing, or hemoptysis. GASTROINTESTINAL: + Abdominal pain. No nausea, vomiting, diarrhea or constipation. GENITOURINARY: + change in urination, dysuria, and decreased frequency. MUSCULOSKELETAL: No joint or muscle swelling or pain. No neck or back pain. SKIN: No rash NEUROLOGIC: No headache, vertigo, loss of consciousness, or change in strength/ sensation. ENDOCRINE: No increased thirst. No abnormal weight change HEMATOLOGIC/LYMPHATIC: No anemia, easy bleeding, or history of blood clots. ALLERGIC/IMMUNOLOGIC: No hives or skin allergy. *Physical Exam - Physical Exam Comments: 12/01/17 03:15 GENERAL: Awake, alert, and fully oriented, in no acute distress HEAD: No signs of trauma, normocephalic, atraumatic EYES: PERRLA, EOMI, sclera anicteric, conjunctiva clear ENT: Hearing grossly normal, nares patent, oropharynx clear without exudates. Moist mucosa NECK: Normal ROM, supple, no lymphadenopathy, JVD, or masses LUNGS: No distress, speaks full sentences, clear to auscultation bilaterally HEART: Regular rate and rhythm, normal S1 and S2, no murmurs, rubs or gallops, peripheral pulses normal and equal bilaterally. ABDOMEN:+ Suprpapubic distension, and ttp. Abdomen soft, nontender, normoactive bowel sounds. No guarding, no rebound. No masses. Neg CVA ttp. : jackson in place, with clear yellow tinged urine in bag. Urine inserted into urethra. EXTREMITIES : Normal inspection, Normal range of motion, no edema. No clubbing or cyanosis. SKIN: Warm, Dry, normal turgor, no rashes or lesions noted Medical Decision Making - Medical Decision Making 12/01/17 03:14 57 yo F with h/o HTN, neurogenic bladder, hemorrhagic cystitis , leukocytoclastic vasculitis, and ARF ( 11/14-11/24/17),acute BL obstructive uropathy, with indwelling Jackson catheter who p/w with decreased urinary output. VSS, AF. Patient oliguric with less than 0.5 cc/kg/hr UOP. Likely 2/2 clotting of tubing. Will attempt irrigation. DDx: obstructive uroapthy, cystitis, malignancy, pyelonephritis. Ed Course: 900 cc of urine from jackson following irrigation. Patient agrees to f/u with Dr. Moreau in afternoon (12/01/17 1:00 PM). Stable for d/c with return precautions. *DC/Admit/Observation/Transfer Diagnosis at time of Disposition: Urinary retention with incomplete bladder emptying - Discharge Dispostion Disposition: HOME Condition at time of disposition: Stable Decision to Admit order: No - Referrals Referrals: Jacinto Levine MD [Primary Care Provider] - - Patient Instructions Printed Discharge Instructions: How to Care for Your Jackson Catheter -- Female Additional Instructions: Please return to the emergency department with any new or worsening symptoms or concerns. Please follow up with Dr. Moreau in afternoon (12/01/17 1:00 PM) as planned. - Post Discharge Activity - Attestations Physician Attestion: 12/01/17 03:24 I attest to the information provided in this note.
--- NOTE | 2017-12-01 03:17 | PDOC ---
Attending Attestation - HPI HPI: 12/01/17 04:54 The patient is a 57 year old female with a significant PMH of hypertension, neurogenic bladder, hemorrhagic cystitis, leukocytoclastic vasculitis, and ARF ( 11/14-11/24/17), acute BL obstructive uropathy, with indwelling Hyatt catheter who presents to the emergency department with decreased urinary output. The patient reports decreased output today from catheter(Hyatt last changed x 1 week ago). She states the she has experienced associated increasing , discomfort and lower abdomen distension. She denies any identifiable triggers or alleviators. The patient also reports intermittent dysuria. She states that she has a scheduled appointment with her urologist (Dr. Garcia) tomorrow at 1 pm tomorrow the patient denies any other symptoms or complaints. Documentation prepared by Woodrow Valle, acting as director medical economics for Beni Solorzano DO. <Woodrow Valle - Last Filed: 12/01/17 04:54> - Resident Resident Name: Job Harding - ED Attending Attestation I have performed the following: I have examined & evaluated the patient, The case was reviewed & discussed with the resident, I agree w/resident's findings & plan, Exceptions are as noted - Physicial Exam PE: 12/01/17 03:19 *Physical Exam General Appearance: Yes: Appropriately Dressed. No: Apparent Distress, Intoxicated HEENT: positive: EOMI, DAVID, Normal ENT Inspection, Normal Voice, TMs Normal, Pharynx Normal. negative: Pale Conjunctivae, Photophobia, Scleral Icterus (R), Scleral Icterus (L) Neck: positive: Trachea midline, Normal Thyroid, Supple. negative: Tender, Rigid, Carotid bruit, Stridor, Lymphadenopathy (R), Lymphadenopathy (L), Thyromegaly Respiratory/Chest: positive: Lungs Clear, Normal Breath Sounds. negative: Chest Tender, Respiratory Distress, Accessory Muscle Use, Labored Respiration, RES, Crackles, Rales, Rhonchi, Stridor, Wheezing, Dullness Cardiovascular: positive: Regular Rhythm, Regular Rate, S1, S2. negative: Edema , JVD, Murmur, Bradycardia, Tachycardia Vascular Pulses: Dorsalis-Pedis (R): 2+, Doralis-Pedis (L): 2+ Gastrointestinal/Abdominal: positive: Normal Bowel Sounds, Flat, Soft. negative : Tender, Organomegaly, Pulsatile Mass, Increased Bowel Sounds, Decreased BS, Distended, Guarding, Rebound, Hernia, Hepatomegaly, Spleenomegaly Lymphatic: negative: Adenopathy, Tenderness Musculoskeletal: positive: Normal Inspection. negative: CVA Tenderness, Decreased Range of Motion Extremity: positive: Normal Capillary Refill, Normal Inspection, Normal Range of Motion, Pelvis Stable. negative: Tender, Pedal Edema, Swelling, Erythema Integumentary: positive: Normal Color, Dry, Warm. negative: Cyanotic, Erythema , Jaundice, Rash Neurologic: positive: collaborating supervising physician II-XII NML intact, Fully Oriented, Alert, Normal Mood/ Affect, Motor Strength 5/5. negative: EOM Palsy, Facial Droop, Sensory Deficit - Medical Decision Making 12/01/17 20:17 Pt treated and released <Beni Solorzano - Last Filed: 12/01/17 20:17>
== END 2017-12-01 03:25 | disposition home or self-care (01) ==
LOC: JER 02:15
PROC: 3C1ZX8Z Irrigation of Indwelling Device using Irrigating Substance, External Approach (ICD-10-PCS; principal; 2017-12-01)
DX: T83.098A Other mechanical complication of other urinary catheter, initial encounter (principal); R33.8 Other retention of urine; N30.91 Cystitis, unspecified with hematuria; N13.9 Obstructive and reflux uropathy, unspecified; N17.9 Acute kidney failure, unspecified; I10 Essential (primary) hypertension; I77.6 Arteritis, unspecified; Z96.0 Presence of urogenital implants
CPT/HCPCS: 99281-25